=== PATIENT | female | born 1985 | race Caucasian/White ===

== ENCOUNTER 2016-08-29 15:01 | Emergency (ER) | payer MEDICAID ==
[~2016-08-29] VITALS: Ht 170.2 cm; Wt 81.6 kg
[~2016-08-29 15:01] MED LIST: BACTRIM DS 8001 TA1 PO; FLOMAX 0.4MG C0.4 MG PO; LEVOTHYROXIN0.075 M3 PO; VICODIN 5/500 T1 TAB PO; VOLTAREN75 MG PO; ZOLOFT100 MG PO
--- NOTE | 2016-08-29 15:34 | Urgent Treatment Center Report ---
History of Present Issue Date/Time Seen by Provider 08/29/16 1529 Visit Reason Pt arrived:Walked Presenting Problem:PT REPORTS L FLANK PAIN RADIATING TO CENTER OF BACK THAT PT REPORS BEGINNING AROUND 0500 TODAY. PT DENIES N/V/D OR URINARY SYMPTOMS Location if Accident: Onset of symptoms date/time:08/29/16 or onset unknown for: Have you (or family members/close friends) recently traveled outside the [place]? N If Yes, where/when: Have you had exposure to infectious disease within the past month? TB? Other? Specify: Patient state that she has been having pain in her left flank area that radiates to middle of back. Patient states that it hurts when she moves and feels like her muscle in her back on that side is really tight. States that she had a tubal done a couple of years ago. Denies any chances of . States that pain does worsen some when she moves but she does not recall anything that she has done recently to hurt her back. States that pain is worse with inspiration ALLERGIES Coded Allergies: No Known Allergies (08/29/16) Home Medications Reported Medications No Known Home Medications History Medical History General CAD? No Angina: No [place]: No Hypertension? No Hyperlipidemia? No CHF? No DVT? No PE? No COPD? No Asthma? No Anemia? No GERD? No Gastric ulcers? No GI Bleed? No Hernia? Yes Thyroid Problems? No Hypothyroidism? No CVA? No Seizures? No Diabetes? No Insulin Dependent: No Insulin Pump: No Home FSBS? No Renal Insuffiency? No UTI? No Stones? No BPH? No GB Disease: Yes Nephritic Syndrome? No Asplenia? No Hepatitis? Yes Sickle Cell Disease? No Arthritis? No Migraines? No Cataracts? No Glaucoma? No MRSA? No HIV? No TB? No Anxiety? No Depression? Yes Cancer? 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 Physical Exam Vital Signs Vital Signs Date Time Temp Pulse Resp B/P Pulse O2 O2 Flow FiO2 Ox Delivery Rate 08/29 1630 20 08/29 1524 97.9 74 18 121/82 100 08/29 1507 97.9 74 18 121/82 100 General Appearance normal appearance, WD/WN, no apparent distress, mild distress Respiratory Status Yes: trachea midline, chest symmetrical, non tender chest. No: respiratory distress. Lung Sounds bilateral: normal breath sounds, lungs clear. 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 Muscle spasm felt just below rib area on left side Medical Decision Making LABS/Meds/Orders Pt receiving controlled substance in ED? No Results/Orders Laboratory Tests 08/29/16 1530: Urine Color YELLOW, Urine Appearance CLEAR, Urine pH 5.5, Ur Specific [place] 1.030, Urine Protein TRACE H, Urine Ketones NEGATIVE, Urine Blood NEGATIVE, Urine Nitrate NEGATIVE, Urine Bilirubin NEGATIVE, Urine Urobilinogen 0.2, Ur Leukocyte Esterase NEGATIVE, Urine Glucose NEGATIVE Current Medication Orders Sig/Manny Start time Last Medication Dose Route Stop Time Status Admin Orphenadrine Citrate 0 .STK-MED ONE 08/29 1624 DC .ROUTE Ketorolac 0 .STK-MED ONE 08/29 1621 DC Tromethamine .ROUTE Ketorolac 60 MG ONCE ONE 08/29 1615 DC 08/29 Tromethamine IM 08/29 1616 1630 Orphenadrine Citrate 60 MG ONCE ONE 08/29 1615 DC 08/29 IM 08/29 1616 1630 Orders Procedure Date/time Status [facility] URINE DIPSTICK 08/29 1530 Complete CHEST(2 VIEWS-NOT PORTABLE) 08/29 1528 Active XRAY/CT/US XRAY/CT/US XR interpretation by reviewed by me Xray Results no infiltrates Progress [facility] Progress Notes Date 08/29/16 Time 1644 Comment Patient states that pain is better that shots helped with pain Departure Departure Time of Disposition 1651 Disposition DC Home or Self Care(routine) Clinical Impression Primary Impression: Spasm Condition STABLE Referrals Dottie LOZANO,Art Mott (Family) Patient Instructions DI for Muscle Spasm Additional Instructions Drink plenty of fluids Follow up with family doctor if no improvement in symptoms Return if needed Take medication as prescribed Discharge Counseling Counseled pt/family regarding diagnosis, test results, medications/RX, home care, follow up needs Prescriptions Current Visit Scripts Cyclobenzaprine Hcl (Flexeril) 10 MG PO TID #20 TAB Ibuprofen (Ibuprofen 800MG) 800 MG PO QIDP PRN pain #30 TAB at 5783
--- NOTE | 2016-08-29 15:34 | Urgent Treatment Center Report ---
History of Present Issue Date/Time Seen by Provider 08/29/16 1529 Visit Reason Pt arrived:Walked Presenting Problem:PT REPORTS L FLANK PAIN RADIATING TO CENTER OF BACK THAT PT REPORS BEGINNING AROUND 0500 TODAY. PT DENIES N/V/D OR URINARY SYMPTOMS Location if Accident: Onset of symptoms date/time:08/29/16 or onset unknown for: Have you (or family members/close friends) recently traveled outside the [place]? N If Yes, where/when: Have you had exposure to infectious disease within the past month? TB? Other? Specify: Patient state that she has been having pain in her left flank area that radiates to middle of back. Patient states that it hurts when she moves and feels like her muscle in her back on that side is really tight. States that she had a tubal done a couple of years ago. Denies any chances of . States that pain does worsen some when she moves but she does not recall anything that she has done recently to hurt her back. States that pain is worse with inspiration ALLERGIES Coded Allergies: No Known Allergies (08/29/16) Home Medications Reported Medications No Known Home Medications History Medical History General CAD? No Angina: No [place]: No Hypertension? No Hyperlipidemia? No CHF? No DVT? No PE? No COPD? No Asthma? No Anemia? No GERD? No Gastric ulcers? No GI Bleed? No Hernia? Yes Thyroid Problems? No Hypothyroidism? No CVA? No Seizures? No Diabetes? No Insulin Dependent: No Insulin Pump: No Home FSBS? No Renal Insuffiency? No UTI? No Stones? No BPH? No GB Disease: Yes Nephritic Syndrome? No Asplenia? No Hepatitis? Yes Sickle Cell Disease? No Arthritis? No Migraines? No Cataracts? No Glaucoma? No MRSA? No HIV? No TB? No Anxiety? No Depression? Yes Cancer? 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 Physical Exam Vital Signs Vital Signs Date Time Temp Pulse Resp B/P Pulse O2 O2 Flow FiO2 Ox Delivery Rate 08/29 1630 20 08/29 1524 97.9 74 18 121/82 100 08/29 1507 97.9 74 18 121/82 100 General Appearance normal appearance, WD/WN, no apparent distress, mild distress Respiratory Status Yes: trachea midline, chest symmetrical, non tender chest. No: respiratory distress. Lung Sounds bilateral: normal breath sounds, lungs clear. 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 Muscle spasm felt just below rib area on left side Medical Decision Making LABS/Meds/Orders Pt receiving controlled substance in ED? No Results/Orders Laboratory Tests 08/29/16 1530: Urine Color YELLOW, Urine Appearance CLEAR, Urine pH 5.5, Ur Specific [place] 1.030, Urine Protein TRACE H, Urine Ketones NEGATIVE, Urine Blood NEGATIVE, Urine Nitrate NEGATIVE, Urine Bilirubin NEGATIVE, Urine Urobilinogen 0.2, Ur Leukocyte Esterase NEGATIVE, Urine Glucose NEGATIVE Current Medication Orders Sig/Manny Start time Last Medication Dose Route Stop Time Status Admin Orphenadrine Citrate 0 .STK-MED ONE 08/29 1624 DC .ROUTE Ketorolac 0 .STK-MED ONE 08/29 1621 DC Tromethamine .ROUTE Ketorolac 60 MG ONCE ONE 08/29 1615 DC 08/29 Tromethamine IM 08/29 1616 1630 Orphenadrine Citrate 60 MG ONCE ONE 08/29 1615 DC 08/29 IM 08/29 1616 1630 Orders Procedure Date/time Status [facility] URINE DIPSTICK 08/29 1530 Complete CHEST(2 VIEWS-NOT PORTABLE) 08/29 1528 Active XRAY/CT/US XRAY/CT/US XR interpretation by reviewed by me Xray Results no infiltrates Progress [facility] Progress Notes Date 08/29/16 Time 1644 Comment Patient states that pain is better that shots helped with pain Departure Departure Time of Disposition 1651 Disposition DC Home or Self Care(routine) Clinical Impression Primary Impression: Spasm Condition STABLE Referrals Dottie LOZANO,Art Mott (Family) Patient Instructions DI for Muscle Spasm Additional Instructions Drink plenty of fluids Follow up with family doctor if no improvement in symptoms Return if needed Take medication as prescribed Discharge Counseling Counseled pt/family regarding diagnosis, test results, medications/RX, home care, follow up needs Prescriptions Current Visit Scripts Cyclobenzaprine Hcl (Flexeril) 10 MG PO TID #20 TAB Ibuprofen (Ibuprofen 800MG) 800 MG PO QIDP PRN pain #30 TAB at 2811
[2016-08-29 15:47] LABS: URINE BILIRUBIN - DIPSTICK NEGATIVE (NEG); URINE BLOOD NEGATIVE (NEG)
[2016-08-29] MEDS ORDERED: IBUPROFEN800 MG PO (16:54)
[2016-08-29] MEDS ORDERED: FLEXERIL10 MG PO (16:54)
[2016-08-29 16:59] VITALS: BP 121/82
--- NOTE | 2016-08-29 18:19 | RADIOLOGY REPORT PS360 ---
CHEST(2 VIEWS-NOT PORTABLE) Ordering physician: PATRICK GONZALES APRN Age: 31 years Female INDICATION: chest symptomspainful inspiration left-sided chest pain no trauma. PROCEDURE: CHEST(2 VIEWS-NOT PORTABLE) FINDINGS: No prior Lungs well expanded and clear with nothing definitely acute. No pneumothorax. No pleural effusion. Heart normal size. Normal pulmonary vascularity. Hilar and mediastinal structures appear satisfactory. Chest wall unremarkable. T-spine intact. IMPRESSION ----- No active disease. Lungs clear. No pneumothorax. Nothing definite acute at chest
--- OUTSIDE RECORDS SUMMARY | 2016-08-30 23:01 | External Medical Summary Rpt ---
Author Author , Organization [employer] Address Unknown Phone Unavailable Care Team Providers Care [place] Tier Name Role Phone [facility], Unavailable Unavailable [facility] AWOSIKA BRANDEN, AWOSIKA Unavailable Unavailable BRANDEN AWOSIKA BRANDEN, AWOSIKA Unavailable Unavailable BRANDEN BEINEKE HENNA, BEINEKE Unavailable Unavailable HENNA TIAN FRANCO, TIAN FRANCO Unavailable Unavailable [facility] Un[facility] Unavailable [facility], [facility] GEOFFREY SWANSON, Unavailable Unavailable GEOFFREY SWANSON, KAPADIA Unavailable Unavailable HONG KAPADIA HONG, KAPADIA Unavailable Unavailable [facility] Unavailable Unavailable [facility], [facility] Unavailable Unavailable [facility], [facility] GUERLINE HONG, GUERLINE Unavailable Unavailable HONG SU JASMIN, SU JASMIN Unavailable Unavailable DEANDRE BLUE DOTY, Unavailable Unavailable DEANDRE Kauffman [facility], Unavailable Unavailable [facility] RANJAN SIMI, RANJAN Unavailable Unavailable SIMI FLETCHER WOODRUFF S, Unavailable Unavailable FLETCHER WOODRUFF ANT, KAMARA Unavailable Unavailable ANT ALLY DEN, ALLY DEN Unavailable Unavailable CLARITZA ROSEN, Unavailable Unavailable CLARITZA ROSEN, Unavailable Unavailable MATHEW LINDSEY HARLAMERT HEN, Unavailable Unavailable HARLAMERT HEN [facility] Unavailable Unavailable INC, [facility] LAWTON KELIN, LAWTON Unavailable Unavailable KELIN LAWTON KELIN, LAWTON Unavailable Unavailable KELIN HILTON RAMIREZ, Unavailable Unavailable HILTON RAMIREZ [facility] Unavailable Unavailable IMAGING ASS, [facility] Unavailable Unavailable [facility]available Unavailable [facility] # Unavailable Unavailable [id number], [facility] # [id number] [id number], Unavailable Unavailable [id number] KUMLER III PAO, Unavailable Unavailable [facility] III PA[facility] Unavailable Unavailable HOLDING, [facility] Unavailable Unavailable HOLDING, [facility], Unavailable Unavailable [facility] Unavailable Unavailable [facility], [facility] Unavailable Unavailable [facility], [facility] Unavailable Unavailable CORPORATION OF AM, [facility] Unavailable [facility]available [facility], [facility] SHAYLA LAW, SHAYLA Unavailable Unavailable LAW [facility] Unavailable Unavailable SERVICES, [facility] Unavailable Unavailable ASSOCIAT, [facility] Unavailable Unavailable SURG[facility], [facility] Unavailable Unavailable MEDICAL, [facility] Unavailable Unavailable [facility] CENTER, [facility] MEESE, BRIDGETTE P, Unavailable Unavailable MEESE BRIDGETTE P [facility], Unavailable Unavailable [facility] MARTIN STEVAN, MARTIN STEVAN Unavailable Unavailable [facility], Unavailable Unavailable PLLC, [facility] DIEGO ANDREE, DIEGO ANDREE Unavailable Unavailable ANDRZEJ HERRERA, Unavailable Unavailable ANDRZEJ HERRERA JR [place], Unavailable Unavailable PICKZULEIKA TEJADA [place] PORNOY ORA, PORNOY Unavailable Unavailable ORA PORNOY ORA, PORNOY Unavailable Unavailable ORA YEISON BERTA, YEISON Unavailable Unavailable BERTA [facility], Unavailable Unavailable [facility], Unavailable Unavailable [facility] JOSE, ASPEN N, Unavailable Unavailable JOSE, ASPEN N DARA MARLEE, DARA Unavailable Unavailable MARLEE DARA, ALIN A, Unavailable Unavailable DARA, ALIN A YAHIR NEWSOME, Unavailable Unavailable YAHIR NEWSOME [id number], Unavailable Unavailable [id number] Un[facility] Unavailable Unavailable [facility], [facility] Unavailable Unavailable DEPARTMENT, [facility] SADEK MOH, SADEK MOH Unavailable Unavailable SADEK MOH, SADEK MOH Unavailable Unavailable SHOWER, YOGESH L, Unavailable Unavailable SHOWER, YOGESH L [facility] SPADY KELIN, SPADY KELIN Unavailable Unavailable SPADY KELIN, SPADY KELIN Unavailable Unavailable NANDINI AUD, NANDINI Unavailable Unavailable AUD NANDINI AUD, NANDINI Unavailable Unavailable AUD NANDINI, YOMI, Unavailable Unavailable YOMI DELATORRE RAG, Unavailable Unavailable NATALIIA RAG NATALIIA RAG, Unavailable Unavailable NATALIIA RAG [facility] Unavailable Unavailable PHYSICIANS MAY, [facility] MAY [facility] Unavailable Unavailable PHYSICIANS MAY, [facility]ANS MAY DE LA CRUZ KER, DE LA CRUZ KER Unavailable Unavailable [facility], Unavailable Unavailable [facility], Unavailable Unavailable [facility] Unavailable Unavailable LABORATORIES, [facility] MARQUIS DEVRIES, Unavailable Unavailable MARQUIS DEVRIES, LJ Unavailable Unavailable MARQUIS CARABALLO, Unavailable Unavailable MARQUIS CALHOUN KATHRYN, Unavailable Unavailable BRIAN POE Purpose Continuity of Care Document - 05-05-2007 through 2016 Problems Code Diagnosis DOS Provider Status J209 ACUTE 01-24-2016 [facility]Y UNSPECIFIED PHYS R05 COUGH 01-24-2016 [facility] Z720 TOBACCO USE 01-24-2016 [facility] I889 NONSPECIFIC 03-06-2015 [facility] LYMPHADEN[facility] INC IS UNSPECIFIED R7989 OTHER SPEC 03-06-2015 [facility] FINDINGS BLOOD CHEMISTRY 7245 UNSPECIFIED 01-30-2015 [facility] 81107 ABDOMINAL 01-14-2015 [facility] PA[facility] OTHER PHYSICIANS, SPECIFIED [facility] SITE 06574 [facility] COMP 01-14-2015 [place] [facility] RY DEVICE IMAGING ASS IMPLANT&GRA FT OTH 25686 ENDOCARDITI 05-25-2014 [facility] S VALVE REGIONAL UNSPECIFIED MEDICAL UNSPECIFIED CAUSE 99543 OTHER 05-25-2014 NATALII[facility] ENDOCARDITI RAG S VALVE UNSPECIFIED 6823 CELLULITIS 05-25-2014 [facility] AND ABSCESS REGIONAL OF UPPER MEDICAL ARM AND FOREARM 4519 PHLEBITIS&T 05-14-2014 NAT[facility] HROMBOPHLEB RAG ITIS OF UNSPECIFIED SITE 35889 ACUTE 05-13-2014 [facility] SUP VEINS UPPER EXT 99160 UNSPECIFIED 02-21-2014 [facility] DENTAL N EMERGENCY CARIES PHYS 5259 UNSPECIFIED 02-21-2014 [facility] DISORDER N EMERGENCY TEETH&SUPPO PHYS RTING STRUCTURES 95170 UNSPECIFIED 01-09-2014 [facility] VIRAL REGIONAL HEPATITIS C MEDICAL W/O HEPATIC COMA 45366 DYSPLASIA 01-09-2014 [facility] OF CERVIX H UNSPECIFIED ANESTHESIA PSC 49232 MODERATE 01-09-2014 [facility] DYSPLASIA REGIONAL OF CERVIX MEDICAL 7969 OTHER 01-09-2014 [facility] NONSPECIFIC REGIONAL ABNORMAL MEDICAL FINDING 33069 PAP SMER 01-05-2014 [facility] CERV W/HI [facility] SQUAMOUS INTRAEPITH LES V7283 OTHER 01-05-2014 [facility] SPECIFIED PRIMARY PRE-OPERATI CARE CENTER VE EXAMINATION 84362 UNSPECIFIED 12-18-2013 [facility] VIRAL INFECTION IN CCE & UNS SITE 6202 OTHER AND 12-13-2013 [facility] UNSPECIFIED REGIONAL OVARIAN MEDICAL CYST 7873 FLATULENCE 10-24-2013 [facility] ERUCTATION AND GAS PAIN 81816 ABDOMINAL 10-24-2013 PORNOY ORA PAIN, PERIUMBILIC 7935 NONSPECIFIC 10-24-2013 [facility] ABN FINDING RAD & OTH EXAM ORGAN 79142 INCISIONAL 10-19-2013 SPAD[facility] KELIN HERNIA WITH OBSTRUCTION V7231 ROUTINE 09-26-2013 [facility] GYNECOLOGIC [facility] OF AL SANDRA H EXAMINATION V7388 SPECIAL SCR 09-26-2013 LABOR[facility]ORY [facility] OF EXAMINATION SANDRA OT SPEC CHLAMYDIAL DZ V745 SCREENING 09-26-2013 LABORATORY EXAMINATION [facility] OF FOR SANDRA H VENEREAL DISEASE V762 SCREENING 09-26-2013 LABORATORY FOR [facility] OF MALIGNANT SANDRA NEOPLASM OF THE CERVIX 5531 UMB HERNIA 09-20-2013 [facility] WITHOUT MENTION OBSTRUCTION /GANGRENE 28754 UNSPEC 09-20-2013 [facility] W/O PHYSICIANS MENTION MAY OBST/GANGRE N 5718 OTHER 09-20-2013 [facility] CHRONIC NONALCOHOLI C LIVER DISEASE 79207 OTHER 09-20-2013 [facility] SPECIFIED DISORDERS OF URETHRA V7241 09-14-2013 [facility]AM[facility] OR TEST DEPARTME NEGATIVE RESULT 44593 ABDOMINAL 09-13-2013 [facility] PAIN, UNSPECIFIED SITE 45339 ABDOMINAL 09-13-2013 PORNOY ORA PAIN, LEFT UPPER QUADRANT V4579 OTHER 09-13-2013 [facility] ACQUIRED ABSENCE OF ORGAN 40748 ACUT PEPTC 09-11-2013 [facility] ULCR UNS REGIONAL SITE MEDICAL W/HEMORR&PE RF W/O OBST 89720 UNSPECIFIED 09-11-2013 [facility] N 27816 PAIN IN 08-28-2013 [facility] JOINT, GENERAL LOWER LEG SURGERY 8362 OTHER TEAR 08-28-2013 [facility] CARTILAGE GENERAL OR MENISCUS SURGERY KNEE CURRENT 9597 INJURY 08-28-2013 [facility] OTHER&UNSPE GENERAL CIFIED KNEE SURGERY LEG ANKLE&FOOT 19501 EFFUSION OF 08-24-2013 [facility] [place] LOWER LEG JOINT 2449 UNSPECIFIED 07-07-2013 NANDINI AUD HYPOTHYROID ISM 91786 UNSPECIFIED 07-07-2013 [facility] Y OF KNEE AUGUST 9598 INJURY 07-07-2013 [place] JOH OTHER AND UNSPECIFIED UNSPECIFIED SITE V7791 SCREENING 07-07-2013 NANDINI AUD FOR LIPOID DISORDERS 6961 OTHER 03-22-2013 NANDINI AUD PSORIASIS AND SIMILAR DISORDERS V0481 NEED 03-22-2013 NANDINI AUD PROPHYLACTI C VACCINATION &INOCULATIO N FLU 8471 THORACIC 07-26-2012 I [facility], [facility] INC. 4619 ACUTE 07-25-2012 [facility] UNSPECIFIED SERVICES 04947 DEGEN 07-19-2012 [facility]/ RADIOLOGY ORACOLUMBAR ASSOCIAT INTERVERTEB RAL DISC 40433 CHRONIC 07-06-2012 [facility] WITHOUT MENTION HEPATIC COMA V700 ROUTINE 07-06-2012 [facility] MEDICAL EXAM@HEALTH CARE FACL 0701 VIRAL 05-10-2012 [facility] WITHOUT PHYSICIANS MENTION OF AUGUST HEPATIC COMA 97569 UNSPECIFIED 05-06-2012 AWOSIKA BRANDEN ASTIGMATISM 7840 HEADACHE 05-06-2012 AWOSIKA BRANDEN 5990 URINARY 11-28-2011 [facility] INFECTION SERVICES SITE NOT SPECIFIED 27160 UNSPECIFIED 11-28-2011 [facility]ENTION [facility] OF URINE SERVICES 7099 UNSPECIFIED 11-13-2011 [facility] DISORDER AMERIC OF HOLDING SKIN&SUBCUT ANEOUS TISSUE 2662 OTHER 07-17-2011 KE[facility] Snow-COMPLEX CO HEALTH DEFICIENCIE DEPARTME S 5959 UNSPECIFIED 02-07-2011 [facility] CYSTITIS [facility] 2384 NEOPLASM 12-19-2010 NANDINI AUD UNCERTAIN BEHAVIOR POLYCYTHEMI A VERA 2890 POLYCYTHEMI 12-19-2010 [facility] A, AMERIC SECONDARY HOLDING 8509 UNSPECIFIED 10-24-2010 NANDINI AUD CONCUSSION 72076 UNSPECIFIED 10-11-2010 [facility] ACUTE [facility] CONJUNCTIVI SERVICES TIS 61905 OTHER 10-11-2010 [facility] DISEASES OF EMERGENCY NASAL SERVICES CAVITY AND SINUSES 9190 ABRASION/FR 10-11-2010 [facility] ICION BURN EMERGENCY OTH MX&UNS SERVICES SITE W/O INF 4660 ACUTE 08-06-2010 NANDINI AUD BRONCHITIS 6262 EXCESSIVE 06-06-2010 NANDINI AUD OR FREQUENT MENSTRUATIO N 38149 CHOLECYSTIT 05-08-2010 [facility] IS, H UNSPECIFIED ANESTHESIA PSC 64671 CHRONIC 05-08-2010 [facility] CHOLECYSTIT REGIONAL IS MEDICAL 5758 OTHER 05-08-2010 [facility] SPECIFIED REGIONAL DISORDER OF MEDICAL GALLBLADDER 6146 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 [facility] PERITONEAL REGIONAL ADHESIONS, MEDICAL FEMALE 7856 ENLARGEMENT 05-08-2010 [facility] [place] [facility] NODES 7862 COUGH 05-06-2010 [facility] 45924 ABDOMINAL 04-02-2010 [facility] PAIN RIGHT REGIONAL UPPER MEDICAL QUADRANT 39908 ACUTE 03-22-2010 [facility] WITHOUT SERVICES MENTION OF HEMORRHAGE 92115 UNS 03-22-2010 [facility] GASTRITIS&G REGIONAL ASTRODUODIT MEDICAL IS W/O MENTION HEMORR 04873 VOMITING 03-22-2010 [facility] ALONE REGIONAL MEDICAL 1105 DERMATOPHYT 12-24-2009 NANDINI AUD OSIS OF THE BODY 75312 OBESITY, 12-24-2009 NANDINI AUD UNSPECIFIED 26369 OTHER 12-24-2009 NANDINI AUD MALAISE AND FATIGUE 8472 LUMBAR 12-24-2009 NANDINI AUD SPRAIN AND STRAIN 6228 OTHER 12-17-2009 [facility] SPECIFIED PRIMARY NONINFLAMMA CARE CENTER TORY DISORDER CERVIX 6259 UNSPEC 12-17-2009 [facility] SYMPTOM PRIMARY ASSOC CARE CENTER W/FEMALE GENITAL ORGANS 6179 ENDOMETRIOS 11-25-2009 [facility] IS, SITE [place] UNSPECIFIED 6264 IRREGULAR 11-25-2009 [facility] MENSTRUAL [place] CYCLE 7295 PAIN IN 11-25-2009 [facility] SOFT [place] TISSUES OF LIMB 34310 ABDOMINAL 11-25-2009 [facility] LOWER QUADRANT 25825 OTHER 11-25-2009 [facility] 8419 SPRAIN&STRA 09-15-2009 [facility] IN EMERGENCY UNSPECIFIED SERVICES SITE ASSOCIATES [place] [address] CONTUSION 09-15-2009 [place] [facility] SERVICES ASSOCIATES 9593 INJURY 09-15-2009 [place] OTHER&UNSPE MEDICAL CIFIED IMAGING [facility] FOREARM&WRI ST E8809 ACCIDENTAL 09-15-2009 [facility] FALL ON OR EMERGENCY FROM OTHER SERVICES STAIRS OR ASSOCIATES STEPS 54995 THYROTOX 08-28-2009 [facility] W/O [place] INC GOITER/OTH CAUSE W/O CRISIS 1104 DERMATOPHYT 07-27-2009 [facility], OSIS OF YAHIR Lopez FOOT 87056 MORBID 07-27-2009 [facility], OBESITY [place] 7831 ABNORMAL 07-24-2009 [facility], WEIGHT GAIN YAHIR Lopez 3804 IMPACTED 07-17-2009 [facility] CERUMEN [place] 6260 ABSENCE OF 03-21-2009 [facility] 22572 MILD 02-19-2009 [facility] DYSPLASIA PRIMARY OF CERVIX CARE CENTERINC 6253 DYSMENORRHE 02-19-2009 [facility] A PRIMARY CARE CENTERINC V2502 GENERAL 02-19-2009 [facility] CNSL PRIMARY INITIATION CARE OT CENTERINC CONTRACEPT MEASURES 7881 DYSURIA 02-05-2009 [facility]ARE [facility]ENTER[facility] 53450 PAP SMER 12-25-2008 [facility] CERV [place] INC W/ATYPICAL SQUAMOUS CELLS UNDET 75049 ACUTE 11-05-2008 NANDINI, DYSTONIA YOMI DUE TO DRUGS 7231 CERVICALGIA 11-03-2008 [facility] AMB SERVICE 57923 INJURY OF 11-03-2008 [facility] FACE AND AMB SERVICE NECK OTHER AND UNSPECIFIED 6268 OTH D/O 09-25-2008 [facility] MENSTRUATIO PRIMARY N&OTH ABN CARE BLEED FE CENTERINC GNT TRACT 2113 BENIGN 02-21-2008 [facility] NEOPLASM OF TRACE COLON GASTROENTER OLOGY 5693 HEMORRHAGE 02-21-2008 [facility] OF RECTUM TRACE AND ANUS GASTROENTER OLOGY 5699 UNSPECIFIED 02-21-2008 [facility] DISORDER [place] INC OF INTESTINE 5781 BLOOD IN 01-25-2008 [facility] STOOL PRIMARY CARE CENTERINC 94726 C/S DELIV 01-25-2008 [facility] W/O INDICAT PRIMARY DELIV W/WO CARE ANTPRTM CENTERINC COND V242 ROUTINE 01-25-2008 [facility] PRIMARY FOLLOW-UP CARE CENTERINC V252 STERILIZATI 01-25-2008 [facility] ON PRIMARY CARE CENTERINC 69707 BREECH 12-13-2007 [facility] XTRAC W/O PRIMARY INDICAT CARE DELIV W/WO CENTERINC ANTPRTM COND V270 OUTCOME OF 12-13-2007 [facility] DELIVERY PRIMARY SINGLE CARE LIVEBORN CENTERINC 35862 BREECH 12-11-2007 [facility] PRESENTATIO H N W/O ANESTHESIA MENTION PSC VERSION DELIV 71561 OTH SPEC 12-11-2007 [facility] &PLACN REGIONAL TL PROBS MEDICAL MGMT [facility] DELIV 45072 PREVIOUS 12-07-2007 [facility] C-SECT REGIONAL DELIVERY MEDICAL ANTPRTM CENTER COND/COMP 7242 LUMBAGO 12-07-2007 [facility] PRIMARY CARE [facility]ENTERINC V221 SUPERVISION 12-07-2007 [facility] OF OTHER PRIMARY NORMAL CARE CENTERINC V2389 SUPERVISION 12-07-2007 [facility] OF OTHER PRIMARY HIGH-RISK CARE CENTERINC V7242 11-14-2007 [facility] EXAMINATION PRIMARY OR TEST CARE POSITIVE CENTERINC RESULT 84156 UNS 07-26-2007 [facility] ABNORM MGMT PRIMARY MOTH CARE ANTPR CENTERINC COND/COMP 28398 OTH CURRENT 07-11-2007 [facility] MATERNAL HEALTH CCE-COMPL CENTRAL PG BANK ACCT CB/PP-UNS EOC V653 DIETARY 07-11-2007 [facility] SURVEILLANC HEALTH E AND CENTRAL COUNSELING BANK ACCT V288 OTHER 05-16-2007 [facility] SPECIFIED PRIMARY CARE SCREENING CENTERINC R10.9 UNSPECIFIED ABDOMINAL PAIN Medications Na ND Rx Da Fi Fi Am Da Di Ph RX Ph St me C No te ll ll ou ys ag ar # ys at rm s nt no ma ic us Or Da si cy ia de te s n re d BU 00 02 03 3. 3 00 GE Ac MI 05 -1 -2 00 00 OR ti EN 40 7- 4- 0 04 GE ve OR 18 20 20 01 TO PH 91 17 17 67 WN IN 3 59 -N AP AL OT OX HE ON CA RY 8- 2 MG SL BU 00 02 03 4. 4 00 GE Ac MI 05 -1 -1 00 00 OR ti EN 40 3- 7- 0 04 GE ve OR 18 20 20 01 TO PH 91 17 17 66 WN IN 3 30 -N AP AL OT OX HE ON CA RY 8- 2 MG SL BU 00 02 03 5. 5 00 GE Ac MI 05 -0 -1 00 00 OR ti EN 40 8- 0- 0 04 GE ve OR 18 20 20 01 TO PH 91 17 17 64 WN IN 3 75 -N AP AL OT OX HE ON CA RY 8- 2 MG SL BU 00 01 03 4. 4 00 GE Ac MI 05 -3 -0 00 00 OR ti EN 40 0- 3- 0 04 GE ve OR 18 20 20 01 TO PH 91 17 17 62 WN IN 3 01 -N AP AL OT OX HE ON CA RY 8- 2 MG SL BU 00 01 02 5. 5 00 GE Ac MI 05 -2 -2 00 00 OR ti EN 40 0- 4- 0 04 GE ve OR 18 20 20 01 TO PH 91 17 17 59 WN IN 3 32 -N AP AL OT OX HE ON CA RY 8- 2 MG SL LE 00 01 02 30 30 00 WA Ac VO 78 -2 -2 .0 00 L- ti TH 15 0- 4- 00 07 MA ve YR 18 20 20 46 RT OX 09 17 17 60 IN 2 43 PH E AR 25 MA CY MC G #5 TA 91 BL ET 00 08 10 2 30 15 KR 62 SP Ac 14 -1 -2 .0 OG 12 EN ti 31 9- 2- 00 ER 27 CE ve 34 20 20 4 R 70 11 11 PH AU [address] VINAY VILLARREAL CY # 14 42 0 LE 00 05 10 1 90 90 KR 61 SP Ac VO 52 -2 -2 .0 OG 99 EN ti TH 71 0- 2- 00 ER 40 CE ve YR 34 20 20 9 R OX 31 11 11 PH AU IN [address] Jose Roberto MCLEAN EY 75 CY # MC G 14 TA 42 BL 0 ET POWERS 53 10 10 0 20 10 KR 62 POWERS Ac LF 74 -1 -1 .0 OG 20 LL ti AM 60 1- 1- 00 ER 81 IV ve ET 27 20 20 0 AN HO 20 11 11 PH XA 1 AR CH ZO MA RI LE CY ST -T # IN MP A 14 M DS 42 0 TA BL ET PH 65 10 10 0 10 3 KR 62 AMADA Ac EN 16 -0 -0 .0 OG 20 HN ti AZ 20 8- 9- 00 ER 33 SO ve OP 51 20 20 3 N YR 71 11 11 PH DO ID 0 AR NA IN MA LD E CY J 10 # 0 MG 14 42 TA 0 B AM 00 10 10 0 10 5 KR 62 AMADA Ac OX 78 -0 -0 .0 OG 20 HN ti -C 11 8- 9- 00 ER 33 SO ve LA 85 20 20 2 N V 22 11 11 PH DO 87 0 AR NA 5- MA LD 12 CY J 5 # MG 14 TA 42 BL 0 ET NA 53 08 08 2 30 15 KR 62 SP Ac MI 74 -1 -1 .0 OG 12 EN ti OX 60 9- 9- 00 ER 27 CE ve EN 18 20 20 4 R 90 11 11 PH AU [address] 5 MA EY MG CY # TA BL 14 ET 42 0 CI 68 08 08 0 30 30 KR 62 PO Ac TA 64 -1 -1 .0 OG 11 E ti LO 50 7- 7- [address] ve MI 28 20 20 6 AC AM 25 11 11 PH Y 4 AR L HB MA R CY 40 # MG 14 42 TA 0 BL ET 49 06 06 0 40 10 KR 62 RO Ac 88 -1 -1 0. OG 02 HE ti 40 1- 2- 00 ER 52 ve 60 20 20 0 3 PA 04 11 11 PH IG 0 AR E MA E CY # 14 42 0 ON 55 06 06 0 12 30 KR 62 RO Ac DA 11 -1 -1 .0 OG 02 HE ti NS 10 1- 2- 00 ER 52 ve ET 15 20 20 2 PA RO 33 11 11 PH IG N 0 AR E HC MA E L CY 4 # MG 14 TA 42 BL 0 ET CE 42 06 06 0 20 5 KR 62 RO Ac PH 04 -1 -1 .0 OG 02 HE ti AL 30 1- 2- 00 ER 52 ve EX 14 20 20 1 PA IN 10 11 11 PH IG 1 AR E 50 MA E 0 CY MG # CA 14 PS 42 UL 0 E CI 68 05 05 2 30 30 KR 62 SP Ac TA 64 -3 -3 .0 OG 00 EN ti LO 50 1- 1- 00 ER 71 CE ve MI 28 20 20 2 R AM 25 11 11 PH AU [address] HB MA EY R CY 40 # MG 14 42 TA 0 BL ET ME 00 05 05 0 30 10 KR 61 SP Ac TH 60 -2 -2 .0 OG 99 EN ti OC 34 3- 3- 00 ER 68 CE ve AR 48 20 20 9 R BA 52 11 11 PH AU MO [address] L MA EY 50 CY 0 # MG 14 TA 42 BL 0 ET LE 00 05 05 1 90 90 KR 61 SP Ac VO 52 -2 -2 .0 OG 99 EN ti TH 71 0- 0- 00 ER 40 CE ve YR 34 20 20 9 R OX 30 11 11 PH AU IN [address] E MA EY 75 CY # MC G 14 TA 42 BL 0 ET CY 59 05 05 2 30 10 KR 61 SP Ac CL 74 -2 -2 .0 OG 99 EN ti OB 60 0- 0- 00 ER 40 CE ve EN 21 20 20 8 R ZA 10 11 11 PH AU MI [address] IN MA EY E CY 5 # MG 14 TA 42 BL 0 ET CI 68 05 05 2 15 30 KR 61 SP Ac TA 64 -2 -2 .0 OG 99 EN ti LO 50 0- 0- 00 ER 40 CE ve MI 28 20 20 7 R AM 25 11 11 PH AU [address] HB MA EY R CY 40 # MG 14 42 TA 0 BL ET AZ 00 04 04 0 6. 5 KR 61 SP Ac IT 09 -0 -0 00 OG 92 EN ti HR 37 6- 6- 0 ER 45 CE ve OM 14 20 20 5 R YC 61 11 11 PH AU IN [address] MCLEAN EY 25 CY 0 # MG 14 TA 42 BL 0 ET CI 68 03 03 2 15 30 KR 61 SP Ac TA 64 -0 -0 .0 OG 87 EN ti LO 50 9- 9- 00 ER 67 CE ve MI 28 20 20 9 R AM 25 11 11 PH AU [address] HB MA EY R CY 40 # MG 14 42 TA 0 BL ET CI 55 02 02 0 10 5 KR 61 PO Ac MI 11 -2 -2 .0 OG 85 RN ti OF 10 5- 5- 00 ER 81 OY ve LO 12 20 20 7 XA 70 11 11 PH GE CI 1 AR OF N MA FR HC CY EY L # A 50 0 14 MG 42 0 TA B LE 00 02 02 1 90 90 KR 61 SP Ac VO 52 -2 -2 .0 OG 85 EN ti TH 71 3- 4- 00 ER 33 CE ve YR 34 20 20 0 R OX 30 11 11 PH AU IN [address] Jose Roberto MCLEAN EY 75 CY # MC G 14 TA 42 BL 0 ET PH 65 02 02 0 6. 2 KR 61 POWERS Ac EN 16 -2 -2 00 OG 85 LL ti AZ 20 4- 4- 0 ER 56 IV ve OP 52 20 20 1 AN YR 01 11 11 PH ID 0 AR CH IN MA RI E CY ST 20 # IN 0 A MG 14 M 42 TA 0 B POWERS 53 02 02 0 14 7 KR 61 POWERS Ac LF 74 -2 -2 .0 OG 85 LL ti AM 60 4- 4- 00 ER 56 IV ve ET 27 20 20 2 AN HO 20 11 11 PH XA 1 AR CH ZO MA RI LE CY ST -T # IN MP A 14 M DS 42 0 TA BL ET NE 00 01 02 1 30 30 KR 61 MA Ac XI 18 -1 -2 .0 OG 79 NS ti UM 65 8- 3- 00 ER 43 HI ve 04 [address] 03 11 11 PH LA 1 AR WR 40 MA EN CY CE MG # L CA 14 PS 42 UL 0 E LE 00 01 01 0 30 30 KR 61 SP Ac VO 52 -2 -2 .0 OG 80 EN ti TH 71 8- 8- 00 ER 97 CE ve YR 34 20 20 4 R OX 30 11 11 PH AU IN [address] E MA EY 75 CY # MC G 14 TA 42 BL 0 ET NE 00 01 01 1 30 30 KR 61 MA Ac XI 18 -1 -1 .0 OG 79 NS ti UM 65 8- 8- 00 ER 43 HI ve 04 [address] 03 11 11 PH LA 1 AR WR 40 MA EN CY CE MG # L CA 14 PS 42 UL 0 E 00 01 01 0 24 2 KR 44 MA Ac 40 -0 -0 .0 OG 78 NS ti 60 6- 6- 00 ER 63 HI ve 35 20 20 0 P 70 11 11 PH LA 1 AR WR MA EN CY CE # L 14 42 0 NE 00 12 12 0 30 30 KR 61 MA Ac XI 18 -1 -1 .0 OG 74 NS ti UM 65 7- 7- 00 ER 95 HI ve 04 [address] 03 10 10 PH LA 1 AR WR 40 MA EN CY CE MG # L CA 14 PS 42 UL 0 E MI 68 11 11 0 8. [address] Ac OM 38 -2 -2 00 OG 70 OU ti ET 20 0- 0- 0 ER 75 T ve FUNEZ 04 20 20 9 KE ZI 10 10 10 PH RR NE 1 AR IC MA K 25 CY L # MG 14 TA 42 BL 0 ET 64 11 11 0 [address] Ac 67 -2 -2 .0 OG 70 OU ti 90 0- 0- 00 ER 75 T ve 90 20 20 8 KE 60 10 10 PH RR 1 AR IC MA K CY L # 14 42 0 SP 00 08 09 11 28 28 KR 61 MI Ac RI 55 -1 -1 .0 OG 55 AD ti NT 59 7- 2- 00 ER 59 FUNEZ ve EC 01 20 20 7 N 65 10 10 PH SO 28 8 AR MA MA DA CY Y # TA BL 14 ET 42 0 DO 53 08 08 0 14 7 KR 61 MI Ac XY 48 -1 -1 .0 OG 55 AD ti CY 90 7- 7- 00 ER 59 FUNEZ ve CL 12 20 20 8 N IN 00 10 10 PH SO E 2 AR MA HY MA CL CY AT # E 10 14 0 42 MG 0 TA B SP 00 08 08 11 28 28 KR 61 MI Ac RI 55 -1 -1 .0 OG 55 AD ti NT 59 7- 7- 00 ER 59 FUNEZ ve EC 01 20 20 7 N 65 10 10 PH SO 28 8 AR MA MA DA CY Y # TA BL 14 ET 42 0 LE 00 05 08 3 30 30 KR 61 No Ac VO 52 -1 -0 .0 OG 42 t ti TH 71 2- 5- 00 ER 33 Av ve YR 34 20 20 9 ai OX 20 10 10 PH la IN 1 AR bl E MA e 50 CY # MC G 14 TA 42 BL 0 ET NA 00 07 07 0 20 10 KR 61 No Ac MI 09 -2 -2 .0 OG 52 t ti OX 30 6- 7- 00 ER 64 Av ve EN 14 20 20 6 ai 90 10 10 PH la 50 1 AR bl 0 MA e MG CY # TA BL 14 ET 42 0 LE 00 05 07 3 30 30 KR 61 No Ac VO 52 -1 -0 .0 OG 42 t ti TH 71 2- 6- 00 ER 33 Av ve YR 34 20 20 9 ai OX 21 10 10 PH la IN 0 AR bl E MA e 50 CY # MC G 14 TA 42 BL 0 ET LE 00 05 06 3 30 30 KR 61 No Ac VO 52 -1 -0 .0 OG 42 t ti TH 71 2- 2- 00 ER 33 Av ve YR 34 20 20 9 ai OX 20 10 10 PH la IN 1 AR bl E MA e 50 CY # MC G 14 TA 42 BL 0 ET 00 05 05 0 8. 2 KR 44 GA Ac 40 -1 -2 00 OG 75 IN ti 60 6- 6- 0 ER 05 EY ve 35 20 20 0 70 10 10 PH SC 1 AR CH MA AE CY L # S 14 42 0 LE 00 03 04 1 30 30 KR 61 No Ac VO 52 -2 -2 .0 OG 35 t ti TH 71 7- 9- 00 ER 44 Av ve YR 34 20 20 5 ai OX 20 10 10 PH la IN 1 AR bl E MA e 50 CY # MC G 14 TA 42 BL 0 ET PE 00 04 04 0 28 7 KR 61 BU Ac NI 78 -1 -1 .0 OG 37 RN ti CI 11 2 2 00 ER 57 S ve LL 65 20 20 5 AMADA IN 51 10 10 PH HN 0 AR T VK MA CY 50 # 0 MG 14 42 TA 0 BL ET 00 04 04 0 16 4 KR 44 BU Ac 40 -1 -1 .0 OG 74 RN ti 60 2 2 00 ER 35 S ve 35 20 20 3 AMADA 70 10 10 PH HN 1 AR T MA CY # 14 42 0 LE 00 03 03 1 30 30 KR 61 No Ac VO 52 -2 -2 .0 OG 35 t ti TH 71 00 ER 44 Av ve YR 34 20 20 5 ai OX 20 10 10 PH la IN 1 AR bl E MA e 50 CY # MC G 14 TA 42 BL 0 ET NY 00 03 03 3 30 15 KR [address] 16 -1 -1 .0 OG 33 t ti AT 80 ER 90 Av ve IN 05 20 20 6 ai 43 10 10 PH la 10 0 AR bl 0, MA e 00 CY 0 # UN IT 14 /G 42 M 0 CR EA M FL 68 03 03 1 10 10 KR 61 No Ac UC 46 -1 -1 .0 OG 33 t ti ON 20 ER 90 Av ve AZ 10 20 20 5 ai OL 34 10 10 PH la E 0 AR bl 15 MA e 0 CY MG # TA 14 BL 42 ET 0 IB 53 01 01 00 24 8 KR 61 FO Ac UP 74 -1 -[address]0 [address] ti RO 60 ER 81 ER ve FE 46 20 20 6 N 60 10 10 PH JA 80 1 AR ME 0 MA S MG CY M TA #4 BL 20 ET OX 00 05 03 00 15 2 KR 22 FO Ac YC 40 -1 -[address] ti OD 60 8 ER 41 ER ve ON 51 20 20 7 E- 20 10 10 PH JA AC 1 AR ME ET MA S AM CY M IN OP #4 HE 20 N 5- 32 5 BA 00 05 03 00 20 6 KR 61 FO Ac CL 83 -1 -[address] ti OF 21 ER 81 ER ve EN 02 20 20 5 40 10 10 PH JA 10 0 AR ME MA S MG CY M TA #4 BL 20 ET NU 00 10 11 00 1. 28 KR 61 YO Ac VA 05 -2 -1 00 OG 09 UN ti RI 20 0- 9- 0 ER 27 G ve NG 27 20 20 4 KA 30 09 09 PH TH VA 3 AR ALANNA OLIVARES MA N NA CY L RI #4 NG 20 NU 00 10 11 00 3. 90 KR 61 YO Ac VA 05 -2 -0 00 OG 09 UN ti RI 20 0- 5- 0 ER 27 G ve NG 27 20 20 4 KA 30 09 09 PH TH VA 3 AR ALANNA OLIVARES MA N NA CY L RI #4 NG 20 PO 00 08 09 00 52 30 KR 60 ME Ac LY 57 -2 -1 7. OG 99 ES ti ET 40 5- 0- 00 ER 92 E ve HY 41 [address] LE 20 09 09 PH EP NE 5 AR HE MA N GL CY P YC OL #4 20 33 50 PO WD IB 53 08 09 00 30 10 KR 60 ME Ac UP 74 -2 -1 .0 OG 99 ES ti RO 60 5- 0- 00 ER 92 E ve FE [address] N 60 09 09 PH EP 80 1 AR HE 0 MA N MG CY P TA #4 BL 20 ET SP 00 08 09 00 28 28 KR 60 ME Ac RI 55 -2 -1 .0 OG 99 ES ti NT 59 5- 0- 00 ER 92 E ve EC [address] 65 09 09 PH EP 28 8 AR HE MA N DA CY P Y TA #4 BL 20 ET POWERS 53 07 07 00 20 10 KR 60 KE Ac LF 74 -1 -3 .0 OG 93 ET ti AM 60 3- 0- 00 ER 76 ON ve ET 27 20 20 6 HO 10 09 09 PH CA XA 1 AR SE ZO MA Y LE CY R -T MP #4 20 SS TA BL ET BE 00 07 07 00 6. 3 RI 66 CH Ac NZ 83 -0 -1 00 TE 78 RI ti TR 21 4- 6- [address] ve OP 08 20 20 AI MA IN 10 09 09 D S E 0 PH WI ME AR LL S M IA 1 #3 M MG 92 A 0 TA BL ET IB 53 05 06 00 30 10 KR 60 ME Ac UP 74 -2 -0 .0 OG 86 ES ti RO 60 6- 4- 00 ER 86 E ve FE [address] N 60 09 09 PH EP 80 1 AR HE 0 MA N MG CY P TA #4 BL 20 ET SP 00 05 06 00 28 28 KR 60 ME Ac RI 55 -2 -0 .0 OG 86 ES ti NT 59 6- 4- 00 ER 86 E ve EC [address] 65 09 09 PH EP 28 8 AR HE MA N DA CY P Y TA #4 BL 20 ET PE 00 02 02 00 28 7 KR 60 PO Ac NI 78 -0 -1 .0 OG 68 PE ti CI 11 2- 2- 00 ER 04 -B ve LL 65 20 20 1 UR IN 51 09 09 PH NS 0 AR VK MA SA CY LL 50 Y 0 #4 MG 20 TA BL ET OX 00 02 02 00 16 4 KR 22 PO Ac YC 40 -0 -1 .0 OG 17 PE ti OD 60 2- 2- 00 ER 00 -B ve ON 51 20 20 3 UR E- 20 09 09 PH NS AC 1 AR ET MA SA AM CY LL IN Y OP #4 HE 20 N 5- 32 5 OS 65 10 10 00 32 1 KR 60 No Ac MO 64 -0 -2 .0 OG 49 t ti MI 90 8- 3- 00 ER 96 Av ve EP 70 20 20 5 ai 14 08 08 PH la TA 1 AR bl BL MA e ET CY #4 20 OX 00 08 09 00 16 4 KR 22 No Ac YC 40 -2 -1 .0 OG 15 t ti OD 60 6- 1- 00 ER 86 Av ve ON 51 20 20 0 ai E- 20 08 08 PH la AC 1 AR bl ET MA e AM CY IN OP #4 HE 20 N 5- 32 5 PE 00 08 09 00 28 7 KR 60 No Ac NI 78 -2 -1 .0 OG 43 t ti CI 11 6- 1- 00 ER 11 Av ve LL 65 20 20 2 ai IN 51 08 08 PH la 0 AR bl VK MA e CY 50 0 #4 MG 20 TA BL ET CI 55 08 09 00 14 7 KR 60 No Ac MI 11 -2 -1 .0 OG 43 t ti OF 10 5- 1- 00 ER 01 Av ve LO 12 20 20 6 ai XA 70 08 08 PH la CI 1 AR bl N MA e HC CY L 50 #4 0 20 MG TA B 53 08 08 00 30 10 KR 60 No Ac 74 -1 -2 .0 OG 41 t ti 60 2- 8- 00 ER 07 Av ve 13 20 20 6 ai 70 08 08 PH la 5 AR bl MA e CY #4 20 OX 00 08 08 00 24 2 KR 22 No Ac YC 40 -1 -2 .0 OG 15 t ti OD 60 2- 8- 00 ER 77 Av ve ON 51 20 20 0 ai E- 20 08 08 PH la AC 1 AR bl ET MA e AM CY IN OP #4 HE 20 N 5- 32 5 00 04 06 01 10 10 KR 60 No Ac 09 -2 -0 .0 OG 26 t ti 10 4- 5- 00 ER 14 Av ve 69 20 20 1 ai 01 08 08 PH la 0 AR bl MA e CY #4 20 00 04 05 00 10 10 KR 60 No Ac 09 -2 -0 .0 OG 26 t ti 10 4- 8- 00 ER 14 Av ve 69 20 20 1 ai 01 08 08 PH la 0 AR bl MA e CY #4 20 PE 00 04 04 00 28 7 KR 60 No Ac NI 78 -0 -2 .0 OG 23 t ti CI 11 7- 4- 00 ER 50 Av ve LL 65 20 20 9 ai IN 51 08 08 PH la 0 AR bl VK MA e CY 50 0 #4 MG 20 TA BL ET AC 00 04 04 00 8. 2 KR 44 No Ac ET 09 -0 -2 00 OG 60 t ti AM 30 7- 4- 0 ER 35 Av ve IN 15 20 20 4 ai OP 01 08 08 PH la HE 0 AR bl N- MA e CO CY D #3 #4 20 TA BL ET 64 01 03 00 30 30 KR 60 No Ac 01 -0 -2 .0 OG 09 t ti 10 3- 4- 00 ER 93 Av ve 20 20 20 0 ai 73 08 08 PH la 4 AR bl MA e CY #4 20 59 01 03 00 30 30 KR 60 No Ac 63 -0 -2 .0 OG 09 t ti 00 3- 4- 00 ER 92 Av ve 41 20 20 9 ai 19 08 08 PH la 0 AR bl MA e CY #4 20 Procedures Procedure DOS Code Location Performer Comment RADIOLOGI 34808 [facility] C EXAM 6 HONG CHEST 2 RADIOLOGY VIEWS ASSOCI[place]ONTAL&[place] [address] POLLY MATIAS THYROXINE 5 [facility] TOTAL INC INC BLOOD 26647 [facility], PICKLESIM SMEAR 5 LLC ER JR BIBIANA PERIPHERA L INTERP PHYS W/WRIT REPORT 25 01339 POLLY [facility] HYDROXY 5 [facility] INCLUDES INC INC FRACTIONS IF PERFORMED BLOOD 36155 POLLY MATIAS COUNT 5 [facility] COMPLETE INC INC AUTO&[place] [address] POLLY MAT[facility]AS THYROID 5 [facility] STIMULATI INC INC NG HORMONE TSH COMPREHEN 78609 POLLY MATIAS SIVE 5 [facility] [place] [address] [facility] ABDOMEN & 5 MEDICAL HENNA PELVIS IMAGING W/O ASS CONTRAST MATERIAL ANES 29665 [facility] GUERLINE NON-INVAS 5 LTH HONG BRUNILDA ANESTHESI IMAGING/R A PSC ADIATION THERAPY ECHO 58896 MEADOWVIE MEADOWVIE TRANSESOP 5 W W HAG R-T REGIONAL REGIONAL 2D W/PRB MEDICAL MEDICAL IMG ACQUISJ I&R RINGERS J7120 MEADOWVIE MEADOWVIE LACTATE 5 W W INFUSION REGIONAL REGIONAL UP TO MEDICAL MEDICAL 1000 CC ECG 29790 CLAIRE RANGEL ROUTINE 5 N RAG N RAG ECG W/LEAST 12 LDS W/I&R INITIAL 19405 [facility] 5 W GENERAL CARE/DAY SURGERY 30 MINUTES ECHO 60167 CLAIRE RANGEL TTHRC R-T 5 N RAG N RAG 2D W/WOM-MOD E COMPL SPEC&COLR D DUP-SCAN 47457 [facility] XTR VEINS 5 KELIN RADIOLOGY [place] ASSOCIAT L/LIMITED STUDY CATHETER C1758 MEADOWVIE MEADOWVIE URETERAL 4 W W [facility] [place] [address] MEADOWVIE MEADOWVIE SURG 4 W W PATHOLOGY [facility] GROSS&[place] [address] MEADOWVIE MEADOWVIE SURG 4 W W PATHOLOGY SCRIPPS [facility] MEDICAL GROSS&SIMI ROSCOPIC EXAM ANESTHESI 37818 [facility] TIAN FRANCO A VAGINAL 4 LTH ANESTHESI PROCEDURE A PSC W/BIOPSY NOS CONIZATIO 81819 SU JASMIN SU JASMIN N CERVIX 4 W/WO D&C RPR ELTRD EXC GONADOTRO 81419 CHRISTEN VELÁSQUEZ PIN 4 W W CHORIONIC [facility] MEDICAL MEDICAL QUALITATI VE BLOOD 81736 CHRISTEN VELÁSQUEZ COUNT 4 W W COMPLETE [facility] AUTO&AUTO MEDICAL MEDICAL DIFRNTL WBC COLLECTIO 18571 CHRISTEN VELÁSQUEZ N VENOUS 4 W W BLOOD [facility] VENIPUNCT MEDICAL MEDICAL URE URNLS DIP 00867 CHRISTEN MCGUIREWVIE 4 W W STICK/TAB [facility] LET MEDICAL MEDICAL REAGENT AUTO MICROSCOP Y POTASSIUM 18219 CHRISTEN VELÁSQUEZ SERUM 4 W W PLASMA/WH [facility] OLE BLOOD MEDICAL MEDICAL RADEX 46163 [place] ABDOMEN 4 HONG HONG COMPL W/DCBTS&/ ERC VIEWS REPAIR 92764 SPADY KELIN SPADY KELIN FIRST 4 ABDOMINAL WALL HERNIA IMPLANT 38503 SPADY KELIN SPADY KELIN MESH OPN 4 HERNIA RPR/[place] [address] LABORATOR LABORATOR SURG 4 Y Y PATHOLOGY CORPORATI CORPORATI ON OF AM ON OF AM GROSS&SIMI ROSCOPIC EXAM COLPOSCOP 13319 DARA DARA Y CERVIX 4 MARLEE MARLEE BX CERVIX & ENDOCRV CURRETAGE IADNA 71564 LABORATOR LABORATOR NEISSERIA 4 Y BILLY OF Y BILLY OF SANDRA SANDRA GONORRHOE H H AE AMPLIFIED PROBE TQ IADNA 81481 LABORATOR LABORATOR CHLAMYDIA 4 Y BILLY OF Y BILLY OF [place]DR[place] SANDRA TRACHOMAT H H IS AMPLIFIED PROBE TQ CYTP 59435 LABORATOR LABORATOR CERVICAL/ 4 Y BILLY OF Y BILLY OF VAGINAL [place]DR[place] SANDRA REQ H H INTERP PHYSICIAN CYTP C/V 19511 LABORATOR LABORATOR AUTO THIN 4 Y BILLY OF Y BILLY OF LYR SANDRA SANDRA PREPJ SCR H H MNL RESCR PHYS IADNA 56286 LABORATOR LABORATOR PAPILLOMA 4 Y BILLY OF Y BILLY OF VIRUS SANDRA SANDRA HUMAN H H AMPLIFIED PROBE TQ LOCM Q9967 [facility] [address] [phone] 4 JOHN JOHN MG/ML IODINE PHYSICIAN PHYSICIAN [place] [address] [facility] ABDOMEN & 4 JOHN LOPEZ PELVIS W/CONTRAS PHYSICIAN PHYSICIAN T S August MATERIAL URINE 34465 KENAN GRAYSON 4 CO CO TEST [facility] VISUAL DEPARTME [place] [address] [place] ABDOMINAL 4 [facility] REAL TIME W/IMAGE LIMITED RADEX ABD 81252 [place] COMPL 4 [facility] AQT ABD W/S/E/D VIEWS 1 VIEW BLOOD 27326 MEADOWVIE MEADOWVIE COUNT 4 W W COMPLETE [facility] REGIONAL AUTO&AUTO MEDICAL MEDICAL DIFRNTL WBC COMPREHEN 84130 MEADOWVIE MEADOWVIE SIVE 4 W W METABOLIC REGIONAL REGIONAL PANEL MEDICAL MEDICAL COLLECTIO 47619 MEADOWTAVIA MCGUIREWVIE N VENOUS 4 W W BLOOD REGIONAL REGIONAL VENIPUNCT MEDICAL MEDICAL URE CULTURE 20381 [place] MEAWVIE BACTERIAL 4 W W REGIONAL REGIONAL QUANTTATI MEDICAL MEDICAL VE COLONY COUNT URINE URNLS DIP 78900 MEADOWVIE MEADOWVIE 4 W W STICK/TAB REGIONAL REGIONAL LET MEDICAL MEDICAL REAGENT AUTO MICROSCOP Y INJECTION J3301 CHRISTEN [place] 4 W GENERAL III PAO TRIAMCINO SURGERY LONE ACETONIDE NOS 10 MG ARTHROCEN 95126 MERLINEDESTINEYTAVIA GORGE TESIS 4 W GENERAL III PAO ASPIR&/IN SURGERY J MAJOR JT/BURSA W/O US MRI ANY 28682 MEANEEL VELÁSQUEZ JT LOWER 4 W W EXTREM REGIONAL REGIONAL W/O MEDICAL MEDICAL CONTRAST MATRL COLLECTIO 95106 NANDINI NANDINI N VENOUS 4 AUD AUD BLOOD VENIPUNCT URE RADIOLOGI 74474 [facility] 4 JOHN LOPEZ KNEE COMPLETE PHYSICIAN PHYSICIAN 4/MORE S August VIEWS IM ADM 67553 NANDINI NANDINI PRQ ID 3 AUD AUD SUBQ/IM NJXS 1 [place] [address] [facility] THYROID 3 DIAGNOSTI DIAGNOSTI STIMULATI CS CS NG HORMONE TSH COMPREHEN 12927 [facility] SIVE 3 DIAGNOSTI DIAGNOSTI METABOLIC CS CS PANEL PHYSICAL 22725 KPI KPI THERAPY 3 THERAPY, THERAPY, EVALUATIO INC. INC. N RADEX [address] SPINE 3 JOHN JOHN THORACIC 3 VIEWS PHYSICIAN PHYSICIAN S AUGUST S AUGUST NFCT AGNT 59852 [facility] GENOTYP 3 Y Y NUCLEIC [facility] ACID HEPATITIS C VIRUS COLLECTIO 56592 [facility] VENOUS 3 Y Y BLOOD [facility] VENIPUNCT URE HEPATITIS 04093 [facility] C 3 Y Y ANTIBODY [facility] HEPATITIS 21474 [facility] A 3 Y Y ANTIBODY [facility] HAAB IADNA 87500 [facility] HEPATITIS 3 Y Y [facility] [place] [address] [facility] ABDOMINAL 3 EIDER L[place]SEY REAL RADIOLOGY TIME ASSOCIAT W/IMAGE LIMITED NFCT AGNT 91137 VIRO MED VIRO MED GENOTYP 3 LABORATOR LABORATOR NUCLEIC IES IES ACID HEPATITIS C VIRUS IADNA 99987 VIRO MED VIRO MED HEPATITIS 3 LABORATOR LABORATOR C IES IES AMPLIFIED PROBE&REV RSE TRANSCR DETERMINA 53798 AWOSIKA AWOSIKA TION 3 BRANDEN BRANDEN REFRACTIV E STATE VISUAL 24230 AWOSIKA AWOSIKA FIELD XM 3 BRANDEN BRANDEN UNI/BI W/INTERP INTERMED EXAM URNLS DIP 61096 POLLY MATIAS 2 [facility] STICK/TAB INC INC LET REAGENT AUTO MICROSCOP Y INSJ 48505 POLLY MATIAS NON-NDWEL 2 [facility] LG INC INC BLADDER CATHETER CULTURE 55740 POLLY MATIAS BACTERIAL 2 [facility] INC INC QUANTTATI VE COLONY COUNT URINE CULTURE 59609 LAB BILLY LAB BILLY BACTERIAL 2 AMERIC [employer] [facility] HOLDING QUANTTATI VE COLONY COUNT URINE CULTURE 68866 LAB BILLY LAB BILLY BCT 2 AMERIC AMERIC ISOL&PRSM HOLDING HOLDING PTV ID ISOLATE EA URINE SUSCEPTIB 79965 LAB BILLY LAB BILLY LTY STDY 2 AMERIC AMERIC ANTIMICRB HOLDING HOLDING IAL MICRO/[place] [address] LAB BILLY LAB BILLY THYROID 2 AMERIC AMERIC STIMULATI [employer] [address] LAB BILLY LAB BILLY FREE 2 AMERIC AMERIC THYROXINE HOLDING HOLDING URINE 93592 KENAN GRAYSON 2 CO [facility] VISUAL DEPARTME DEPARTME COLOR CMPRSN [place] URINLS 38437 NANDINI NANDINI DIP 1 AUD AUD STICK/TAB LET REAGNT NON-AUTO MICRSCPY BLOOD 14461 LAB BILLY LAB BILLY COUNT 1 AMERIC AMERIC COMPLETE HOLDING HOLDING AUTO&AUTO DIFRNTL WBC BLOOD 17475 LAB BILLY LAB BILLY COUNT 1 AMERIC AMERIC COMPLETE [employer] HOLDING AUTO&[place] [address] LAB BILLY LAB BILLY THYROID 1 AMERIC AMERIC STIMULATI HOLDING HOLDING NG HORMONE TSH ANES 52138 COMMONWEA KAMARA INTRAPERI 1 LTH ANT TONEAL ANESTHESI UPPER A PSC ABDOMEN W/LAPS NOS LAPAROSCO 00955 MEANEEL MANSHIP PY SURG 1 W GENERAL LAW CHOLECYST SURGERY ECTOMY LEVEL III 66305 AMERIPATH HARLAMERT SURG 1 [place] INC HEN PATHOLOGY GROSS&SIMI ROSCOPIC EXAM UNLISTED 06931 MEADOWVIE MEADOWVIE PX FEMALE 1 W W GENITAL REGIONAL REGIONAL SYSTEM MEDICAL MEDICAL NONOBSTET RICAL URINE 60691 MEADOWVIE MEADOWVIE 1 W W TEST REGIONAL REGIONAL VISUAL MEDICAL MEDICAL COLOR CMPRSN [place] RADIOLOGI 91825 [place] C EXAM 1 HONG CHEST 2 RADIOLOGY VIEWS ASSOCIAT FRONTAL&L ATERAL HEPATBL 82015 [facility] DUX SYS 0 K[place] [address] [place] ABDOMINAL 0 KELIN REAL RADIOLOGY TIME ASSOCIAT W/IMAGE LIMITED BLOOD 22216 MEADOWVIE MEADOWVIE COUNT 0 W W COMPLETE REGIONAL REGIONAL AUTO&AUTO MEDICAL MEDICAL DIFRNTL WBC COMPREHEN 12678 MEADOWVIE MEADOWVIE SIVE 0 W W METABOLIC REGIONAL REGIONAL PANEL MEDICAL MEDICAL COLLECTIO 07665 SHAYLA[place]AV[place] MEAWVIE N VENOUS 0 W W BLOOD [facility] VENIPUNCT MEDICAL MEDICAL URE URNLS DIP 82892 MEAWTAVIA MEADOWVIE 0 W W STICK/TAB [facility] LET MEDICAL MEDICAL [place] [address] SHAYLAWTAVIA MEAWTAVIA AMYLASE 0 W W SCR[place]PS [place] [address] [place]AWTAVIA MEADOWVIE LIPASE 0 W W [facility] MEDICAL MEDICAL URINE 56165 CHRISTEN MCGUIREWTAVIA 0 W W TEST [facility] VISUAL MEDICAL MEDICAL COLOR CMPRSN [place] HGB 19982 NANDINI NANDINI GLYCOSYLA 0 AUD AUD SCOT DEVICE CLEARED FDA HOME USE GENERAL 49428 LAB BILLY LAB BILLY HEALTH 0 AMERIC [place] [address] LAB BILLY LAB BILLY FREE 0 AMERIC [place] [address] [facility] TRANSVAGI 0 [place] [address] SILVESTRE RIVERS TRANSVAGI 0 [place] [facility] [place] [address] SILVESTRE RIVERS ABDOMEN 0 CO CO W/O & [facility]ITAL [facility]PITAL W/CONTRAS T MATERIAL CT PELVIS 49369 RIVERSWONG RIVERS 0 CO CO [facility] T MATERIAL BLOOD 82370 RIVERS SILVESTRE COUNT 0 CO CO [facility] AUTO&AUTO DIFRNTL WBC GONADOTRO 27247 [place] RIVERS PIN 0 CO CO [facility] QUALITATI VE COLLECTIO 27461 SILVESTRE RIVERS N VENOUS 0 CO MA BLOOD [facility] VENIPUNCT URE COMPREHEN 56311 RIVERSWONG RIVERS SIVE 0 CO [facility] PANEL RADEX 28074 POLLY MATIAS ELBOW 0 [facility] COMPLETE INC INC MINIMUM 3 [place] [address] [facility] OF THYROID 0 [facility] INC STIMULATI NG HORMONE TSH LIPID 81044 [facility] OF PANEL 0 [facility] INC COLLECTIO 09434 MERCEDEZ NWESOME N VENOUS 0 , CAMILLA , CAMILLA BLOOD VENIPUNCT URE GENERAL 69837 [facility] OF HEALTH 0 [facility] INC PANEL REMOVAL 92402 MER[facility] NEWSOME IMPACTED 0 , [place] , [place] CERUMEN INSTRUMEN TATION UNILAT COLLECTIO 46910 MEADOWVIE MEADOWVIE N VENOUS 9 W W BLOOD [facility] VENIPUNCT [facility] MEDICAL URE CENTER CENTER GONADOTRO 22724 MEADOWVIE MEADOWVIE PIN 9 W W [facility] QUANTITAT CENTER CENTER BRUNILDA URNLS DIP 51445 JAMES PEREYRA, 9 PRIMARY BRIDGETTE P STICK/TAB CARE LET RGNT CENTERINC AUTO W/O MICROSCOP Y URNLS DIP 84207 JAMES PEREYRA, PRIMARY BRIDGETTE P STICK/TAB CARE LET CENTERINC REAGENT AUTO MICROSCOP Y IADNA 86213 [facility] NEISSERIA 9 [facility] GONORRHOE AE AMPLIFIED PROBE TQ IADNA 25882 [facility] PAPILLOMA 9 [facility] VIRUS HUMAN AMPLIFIED PROBE TQ IADNA 54299 [facility] CHLAMYDIA 9 [facility] TRACHOMAT IS AMPLIFIED PROBE TQ GROUND A0425 [facility] MILEAGE 9 CO AMB CO AMB PER SERVICE SERVICE STATUTE MILE AMBULANCE A0429 [facility] SERVICE 9 CO AMB CO AMB BLS SERVICE [place] [address] AMERIPATH [place], SURG 8 [place] INC [place] D PATHOLOGY GROSS&SIMI ROSCOPIC EXAM COLSC FLX 49532 MEADOWVIE MEADOWVIE W/RMVL 8 W W OF TUMOR [facility] POLYP [facility] MEDICAL LESION CENTER CENTER SNARE TQ POSTPARTU 41083 John [facility] 8 PRIMARY MARQUIS R ONLY CARE SEPARATE CENTERINC PROCEDURE CULTURE 31863 MEADOWVIE MEADOWVIE BACTERIAL 8 W W [facility] CENTER COUNT URINE URNLS DIP 26844 MEADOWVIE MEADOWVIE 8 W W STICK/TAB [facility] LET MEDICAL MEDICAL REAGENT CENTER CENTER AUTO MICROSCOP Y HOSPITAL 18758 JAMES [facility], DISCHARGE 8 PRIMARY ALIN A DAY CARE MANAGEMEN CENTERINC T 30 MIN/< SBSQ 03842 [facility] 8 PRIMARY ALIN A CARE/DAY CARE 15 CENTERINC MINUTES ANES 79032 [facility] JOSE, CESARN 8 LTH ASPEN N DLVR FLWG ANESTHESI A PSC NEURAXIAL LABOR ANALG/ANE S 16645 [facility] LJ, DELIVERY 8 PRIMARY MARQUIS R ONLY CARE CENTERINC ANESTHESI 37853 [facility] JOSE, A 8 LTH ASPEN N ANESTHESI DELIVERY A PSC ONLY OTH 6639 MEADOWVIE MEADOWVIE BILATERAL 8 W W [facility] DESTRUC/O MEDICAL MEDICAL CCLUSION CENTER CENTER FALLOPIAN TUBES LOW 741 MEADOWVIE MEADOWVIE CERVICAL 8 W W [facility] SECTION MEDICAL MEDICAL CENTER CENTER CULTURE 95905 MEADOWVIE MEADOWVIE BACTERIAL 8 W W [facility] QUANTTATI MEDICAL MEDICAL VE COLONY CENTER CENTER COUNT URINE URNLS DIP 87756 MEADOWVIE MEADOWVIE 8 W W STICK/TAB [facility] LET MEDICAL MEDICAL REAGENT CENTER CENTER AUTO MICROSCOP Y POTASSIUM 87163 MEADOWVIE MEADOWVIE SERUM 8 W W PLASMA/[facility] BLOOD MEDICAL MEDICAL CENTER CENTER COLLECTIO 97821 MEADOWVIE MEADOWVIE N VENOUS 8 W W BLOOD [facility] VENIPUNCT MEDICAL MEDICAL URE CENTER CENTER URNLS DIP 83894 JAMES PEREYRA, Telma PRIMARY BRIDGETTE P STICK/TAB CARE LET RGNT CENTERINC NON-AUTO W/O MICRSCP BLOOD 28020 MEADOWVIE MEADOWVIE COUNT 8 W W COMPLETE [facility] AUTO&AUTO MEDICAL MEDICAL DIFRNTL CENTER CENTER WBC URNLS DIP 95542 JAMES PEREYRA, 8 PRIMARY BRIDGETTE P STICK/TAB CARE LET RGNT CENTERINC NON-AUTO W/O MICRSCP URNLS DIP 55539 JAMES HERRERA, 8 PRIMARY ANDRZEJ J STICK/TAB CARE LET RGNT CENTERINC NON-AUTO W/O MICRSCP CUL 25183 CHRISTEN VELÁSQUEZ PRSMPTV 8 W W [facility] CENTER W/COLONY ESTIMJ URNLS DIP 81545 JAMES CALHOUN, 8 PRIMARY MARQUIS R STICK/TAB CARE LET RGNT CENTERINC NON-AUTO W/O MICRSCP URNLS DIP 64431 JAMES PEREYRA, 8 PRIMARY BRIDGETTE P STICK/TAB CARE LET RGNT CENTERINC NON-AUTO W/O MICRSCP COLLECTIO 71069 JAMES PEREYRA, N VENOUS 8 PRIMARY BRIDGETTE P BLOOD CARE VENIPUNCT CENTERINC URE BLOOD 46523 JAMES PEREYRA, COUNT 8 PRIMARY BRIDGETTE P HEMOGLOBI CARE N CENTERINC URNLS DIP 36910 JAMES CALHOUN, 8 PRIMARY MARQUIS R STICK/TAB CARE LET RGNT CENTERINC NON-AUTO W/O MICRSCP URNLS DIP 93817 JAMES BLUE, 8 PRIMARY DEANDRE W STICK/TAB CARE LET RGNT CENTERINC NON-AUTO W/O MICRSCP URNLS DIP 86568 JAMES HERRERA, 8 PRIMARY ANDRZEJ J STICK/TAB CARE LET RGNT CENTERINC NON-AUTO W/O MICRSCP COLLECTIO 19574 JAMES HERRERA, N VENOUS 8 PRIMARY ANDRZEJ J BLOOD CARE [place] [address] [facility] THYROID 8 [facility] [place] [address] [facility] OF FREE 8 [facility] THYROXINE GLUCOSE 15993 [facility] POST 8 [facility] GLUCOSE [facility] G0378 CHRISTEN VELÁSQUEZ OBSERVATI 8 W W ON [facility] PER HOUR CENTER CENTER 85859 JAMES PEREYRA, NONSTRESS 8 PRIMARY BRIDGETTE P TEST CARE CENTERINC URNLS DIP 73343 JAMES MELCHOR, 8 PRIMARY YOGESH L STICK/TAB CARE LET RGNT CENTERINC NON-AUTO [place] [address] [facility] OF FREE 8 [facility] [place] [address] [facility] THYROID 8 [facility] STIMULATI NG HORMONE TSH [place] PREG 71403 JAMES BLOOD LJ, UTERUS 8 PRIMARY MARQUIS R W/DETAIL CARE CENTERINC MITA 1ST GESTATION URNLS DIP 94015 JAMES CALHOUN, 8 PRIMARY MARQUIS R STICK/TAB CARE LET RGNT CENTERINC NON-AUTO W/O MICRSCP MEDICAL 79028 DHS/CO GRAYSON NUTRITION 8 [facility] ASSMT&IVN BANK ACCT DEPARTMEN TJ INDIV T EACH 15 SC URNLS DIP 79815 JAMES ROSEN, 8 PRIMARY CLARITZA E STICK/TAB CARE LET RGNT CENTERINC NON-AUTO W/O MICRSCP IADNA 94839 [facility] NEISSERIA 8 DIAGNOSTI DIAGNOSTI CS IN CS IN GONORRHO[place] [address] [facility] OF [facility] OF FREE 8 [facility] THYROXINE IADNA 72403 [facility] CHLAMYDIA 8 DIAGNOSTI DIAGNOSTI CS IN CS IN TRACHOMAT IS AMPLIFIED PROBE TQ CYTP C/V 11042 [facility] AUTO THIN 8 DIAGNOSTI DIAGNOSTI LYR CS IN CS IN PREPJ SCR MNL RESCR PHYS URNLS DIP 95958 JAMES DIAMOND, 8 PRIMARY ALIN A STICK/TAB CARE LET RGNT CENTERINC NON-AUTO W/O [facility]CR[facility]P US PREG 06050 JAMES HERRERA, UTERUS 8 PRIMARY ANDRZEJ J REAL TIME CARE W/IMAGE CENTERINC DCMTN TRANSVAG URNLS DIP 51708 JAMES HERRERA, 8 PRIMARY ANDRZEJ J STICK/TAB CARE LET RGNT [facility]ENTER[facility] NON-AUTO W/O MICRSCP URNLS DIP 72189 JAMES PEREYRA, 8 PRIMARY BRIDGETTE P STICK/TAB CARE LET RGNT CENTERINC NON-AUTO W/O MICR[facility]P COLLECTIO 10799 JAMES PEREYRA, N VENOUS 8 PRIMARY BRIDGETTE P BLOOD CARE VENIPUNCT CENTERINC URE Encounters Encounter Start End Date Code Location Performer Type Date [facility] DE[facility]MEN EMERGENCY T VISIT PHYS HIGH/URGE NT SEVERITY [facility] 79122 JAMES BLOOD ALLY [facility] OUTPATIEN 5 5 PRIMARY T VISIT CARE 15 CENTER MINUTES EMERGENCY 28678 GELY WOODRUFF DEPT 5 5 PHYSICIAN SIMI VISIT S, PLLC HIGH SEVERITY& THREAT [facility] - 5 5 [facility] 69317 CLAIRE CLAIRE OUTPATIEN 5 5 N RAG N RAG T NEW 45 MINUTES EMERGENCY 35960 [facility] LJ DEPT 5 5 [facility] APPLE VISIT EMERGENCY HIGH PHYS SEVERITY& THREAT FUN EMERGENCY 11218 [facility] 4 4 [facility] DEPARTMEN EMERGENCY T VISIT PHYS MODERATE SEVERITY [facility]OSP[facility] - 4 4 [facility] 49785 JAMES FLOWERSY JASMIN OUTPATIEN 4 4 PRIMARY T VISIT CARE 15 CENTER MINUTES EMERGENCY 30649 [facility] 4 4 DEPARTMEN T VISIT HIGH/URGE NT SEVERITY [facility] - 4 [facility] 21344 JAMES FLOWERSY JASMIN OUTPATIEN 4 4 PRIMARY T VISIT CARE 40 CENTER MINUTES EMERGENCY 73881 [facility] LAMBERT DEPT 4 4 ORA ORA VISIT HIGH SEVERITY& THREAT [facility] OFFICE 88662 KENAN [place] OUTPATIEN 4 4 CO CO T VISIT HEALTH HEALTH 10 DEPARTME DEPARTME MINUTES EMERGENCY 12377 FAUSTO LAMBERT 4 4 ORA ORA DEPARTMEN T VISIT MODERATE SEVERITY [facility] 54357 [facility] [place] OUTPATI[facility] 4 4 W GENERAL III PAO T VISIT SURGERY 15 MINUTES HOSPITAL [place] - 4 4 W OUTPATI REGIONAL T MEDICAL OFFICE 39251 [facility] [place] OUTPATIEN 4 4 III PAO III PAO T NEW 30 MINUTES OFFICE 06684 NANDINI NANDINI OUTPATIEN 4 4 AUD AUD T VISIT 15 MINUTES OFFICE 02611 NANDINI NANDINI OUTPATIEN 3 3 AUD AUD T VISIT 25 MINUTES EMERGENCY 13727 ECTOR CABRERA 3 3 EMERGENCY DEPARTMEN SERVICES T VISIT MODERATE SEVERITY [facility]OSPITAL [facility] - 3 3 Y [facility] T OFFICE 59589 [place] DIEGO ANDREE OUTPATIEN 3 3 MEDICAL T NEW 60 SERV MINUTES FOUNDATIO OFFICE 93070 NANDINI NANDINI OUTPATIEN 3 3 AUD AUD T VISIT 10 MINUTES OFFICE 71530 AWOSIKA AWOSIKA OUTPATIEN 3 3 BRANDEN BRANDEN T NEW 30 MINUTES EMERGENCY 91760 [facility] 2 2 [facility] DEPARTMEN INC T VISIT MODERATE SEVERITY EMERGENCY 12664 ECTOR 2 2 EMERGENCY DEPARTMEN SERVICES T VISIT HIGH/URGE NT SEVERITY [facility] - 2 2 [facility] OUTPATIEN INC T OFFICE 54209 KENAN [place] OUTPATIEN 2 2 CO CO T VISIT HEALTH HEALTH 10 DEPARTME DEPARTME MINUTES OFFICE 22307 NANDINI NANDINI OUTPATIEN 1 1 AUD AUD T VISIT 25 MINUTES EMERGENCY 29542 ECTOR ROPER 1 1 EMERGENCY CHR DEPARTMEN SERVICES T VISIT HIGH/URGE NT SEVERITY OFFICE 42766 NANDINI NANDINI OUTPATIEN 1 1 AUD AUD T VISIT 25 MINUTES OFFICE 16982 NANDINI NANDINI OUTPATIEN 1 1 AUD AUD T VISIT 25 MINUTES EMERGENCY 05720 ECTOR SCHMIDTRU[facility]O CABRERA 1 1 EMERGENCY DEPARTMEN SERVICES T VISIT HIGH/URGE NT SEVERITY EMERGENCY 86569 ECTOR ROPER 1 1 EMERGENCY [facility] DEPARTMEN SERVICES T VISIT HIGH/URGE NT SEVERITY OFFICE 32602 NANDINI NANDINI OUTPATIEN 1 1 AUD AUD T VISIT 25 MINUTES [facility] - 1 1 [facility] L[facility] - 0 0 W [facility] MEDICAL OFFICE 73553 NANDINI NANDINI OUTPATIEN 0 0 AUD AUD T VISIT 25 MINUTES EMERGENCY 57905 SHAYLAWVIE 0 0 W [facility] T VISIT MEDICAL HIGH/URGE NT SEVERITY EMERGENCY 84783 ECTOR CABRERA DEPT 0 0 EMERGENCY VISIT SERVICES HIGH SEVERITY& THREAT [facility] LORRIEVIE - 0 0 W [facility] MEDICAL OFFICE 21719 NANDINI NANDINI OUTPATIEN 0 0 AUD AUD T VISIT 25 MINUTES OFFICE 44950 JAMES LATHAM OUTPATIEN 0 0 PRIMARY BERTA T VISIT CARE 25 CENTER MINUTES OFFICE 95841 JAMES CO LJ, OUTPATIEN 0 0 PRIMARY MARQUIS R T V[facility] 77031 RINALDINI RINALDINI OUTPATIEN 0 0 , CAMILLA , CAMILLA T VISIT 15 MINUTES HOSPITAL POLLY - 0 0 [facility] OUTPATIEN INC T EMERGENCY 67125 ECTOR RANJAN, 0 0 EMERGENCY [facility] DEPARTMEN SERVICES T VISIT HIGH/URGE ASSOCIATE NT S SEVERITY EMERGENCY 62184 POLLY 0 0 [facility] DEPARTMEN INC T VISIT LOW/MODER SEVERITY OFFICE 28057 RINALDINI RINALDINI OUTPATIEN 0 0 , CAMILLA , CAMILLA T VISIT 15 MINUTES OFFICE 85137 RINALDINI RINALDINI OUTPATIEN 0 0 , CAMILLA , CAMILLA T VISIT 15 MINUTES OFFICE 50998 RINALDINI RINALDINI OUTPATIEN 0 0 , CAMILLA , CAMILLA T NEW 30 MINUTES HOSPITAL MEADOW - 9 9 W [facility] OFFICE 39177 PARMINDER DINERO 9 9 PRIMARY BRIAN T VISIT CARE 15 CENTERINC MINUTES OFFICE 20267 PARMINDER KARIMI 9 9 PRIMARY BRIDGETTE P T VISIT CARE 10 CENTERINC MINUTES OFFICE 42255 NANDINI DELATORRE OUTPATIEN 9 9 YOMI HAIRREY T VISIT 25 MINUTES EMERGENCY 01142 ECTOR SWANSON 9 9 EMERGENCY , [facility] DEPARTMEN SERVICES A T VISIT HIGH/URGE ASSOCIATE NT S SEVERITY OFFICE 01445 PARMINDER DINERO 9 9 PRIMARY BRIAN T VISIT CARE 25 CENTERINC MINUTES HOSPITAL [facility] - 8 8 W [facility] OFFICE 61813 SHAY RAMOS 8 8 TRACE MARQUIS A ION GASTROENT NEW/ESTAB EROLOGY PATIENT 40 MIN HOSPITAL [facility] 8 8 W [facility] MEAD[facility] - 8 8 W INPATIENT [facility] MEADOWTAVIA - 8 8 W [facility] OFFICE 31902 JAMES PEREYRA OUTPATIEN 8 8 PRIMARY BRIDGETTE P T VISIT CARE 15 CENTERINC MINUTES OFFICE 22263 JAMES CO RODDY OUTPATIEN 8 8 PRIMARY BRIDGETTE P T VISIT CARE 15 CENTERINC MINUTES OFFICE 85115 JAMES CO LJ OUTPATIEN 8 8 PRIMARY MARQUIS R T VISIT CARE 15 CENTERINC MINUTES OFFICE 75626 JAMES HERRERA OUTPATIEN 8 8 PRIMARY ANDRZEJ J T VISIT CARE 15 CENTERINC MINUTES OFFICE 83136 JAMES CO LJ OUTPATIEN 8 8 PRIMARY MARQUIS R T VISIT CARE 15 CENTERINC MINUTES [facility]OSPITAL [facility]STEN - 8 8 W [facility] OFFICE 46689 JAMES PEREYRA OUTPATIEN 8 8 PRIMARY BRIDGETTE P T VISIT CARE 15 CENTERINC MINUTES OFFICE 84884 JAMES CALHOUN OUTPATIDARIUS 8 8 PRIMARY MARQUIS R T VISIT CARE 15 CENTERINC MINUTES OFFICE 90697 JAMES BLUE OUTPATIDARIUS 8 8 PRIMARY DEANDRE W T VISIT CARE 15 CENTERINC MINUTES OFFICE 59425 JAMES HERRERA OUTPATIEN 8 8 PRIMARY ANDRZEJ J T VISIT CARE 15 CENTERINC MINUTES [facility]OSPITAL [facility] - 8 8 W [facility] OFFICE 88085 JAMES MELCHOR OUTPATIEN 8 8 PRIMARY YOGESH L T VISIT CARE 15 CENTERINC MINUTES OFFICE 71946 JAMES CALHOUN OUTPATIDARIUS 8 8 PRIMARY MARQUIS R T VISIT CARE 15 CENTERINC MINUTES OFFICE 68037 PARMINDER LLOYD 8 8 PRIMARY CLARITZA E T VISIT CARE 15 CENTERINC MINUTES OFFICE 83118 PARMINDER LARSEN 8 8 PRIMARY ALIN A T VISIT CARE 15 CENTERINC MINUTES OFFICE 05040 PARMINDER MILLER 8 8 PRIMARY ANDRZEJ Clemente T VISIT CARE 15 CENTERINC MINUTES OFFICE 76428 PARMINDER KARIMI 8 8 PRIMARY BRIDGETTE P T VISIT CARE 15 CENTERINC MINUTES
--- OUTSIDE RECORDS SUMMARY | 2016-08-30 23:01 | External Medical Summary Rpt ---
Author Author , Organization [employer] Address Unknown Phone Unavailable Care Team Providers Care Research And Development Tester Name Role Phone [facility] [place] [facility], Unavailable [...] Unavailable [facility] Unavailable Unavailable [facility], [facility] Unavailable Unavailable [facility], [facility] GUERLINE HONG, GUERLINE Unavailable Unavailable HONG SU JASMIN, SU JASMIN Unavailable Unavailable DEANDRE BLUE DOTY, Unavailable Unavailable DEANDRE Kauffman [facility], Unavailable Unavailable [facility] RANJAN SIMI, RANJAN Unavailable Unavailable SIMI FLETCHER [...] KELIN HILTON RAMIREZ, Unavailable Unavailable HILTON RAMIREZ [facility] Unavailable Unavailable IMAGING ASS, [facility] Unavailable Unavailable [facility] Unavailable Unavailable [facility] # Unavailable Unavailable [id number], [facility] # [id number] [id number], Unavailable Unavailable [id number], Unavailable Unavailable [facility] Unavailable Unavailable HOLDING, [facility] Unavailable Unavailable HOLDING, [facility] [employer], Unavailable Unavailable [facility] [facility] Unavailable Unavailable SANDRA H, [facility] Unavailable Unavailable [facility]DRA [facility], [facility] Unavailable Unavailable CORPORATION OF AM, [facility] Unavailable Unavailable [facility], [facility] SHAYLA LAW, SHAYLA Unavailable Unavailable LAW [facility] Unavailable Unavailable SERVICES, [facility] Unavailable Unavailable ASSOCIAT, [facility] Un[facility] Unavailable SURG[facility], [facility] Unavailable Unavailable MEDICAL, [facility] Unavailable Unavailable MEDICAL CENTER, [facility] MEESE, BRIDGETTE P, Unavailable Unavailable MEESE [...] ALIN A, Unavailable Unavailable DARA, ALIN A YAIHR NEWSOME, Unavailable Unavailable YAHIR NEWSOME [id number], Unavailable Unavailable [id number] Unavailable Unavailable [facility]AR, [facility] Unavailable Unavailable DEPARTAR, [facility] Unavailable Unavailable DEPARTMENT, [facility] SADEK MOH, SADEK MOH Unavailable [...] RAG NATALIIA RAG, Unavailable Unavailable NATALIIA RAG [facility] Unavailable Unavailable PHYSICIANS MAY, [facility] Unavailable Unavailable PHYSICIANS MAY, [facility] PHYSICIANS MAY DE LA CRUZ KER, DE LA CRUZ KER Unavailable Unavailable [facility], Unavailable Unavailable [facility], Unavailable Unavailable [facility] Unavailable Unavailable LABORATORIES, [facility] MARQUIS DEVRIES, Unavailable Unavailable MARQUIS DEVRIES, LJ Unavailable Unavailable MARQUIS CARABALLO, Unavailable Unavailable MARQUIS CALHOUN KATHRYN, Unavailable Unavailable BRIAN POE Purpose Continuity of Care Document - 05-05-2007 through 2016 Problems Code Diagnosis DOS Provider Status J209 ACUTE 01-24-2016 [facility]Y UNSPECIFIED PHYS R05 COUGH 01-24-2016 [facility] Z720 TOBACCO USE 01-24-2016 [facility] I889 NONSPECIFIC 03-06-2015 [facility] IS UNSPECIFIED R7989 OTHER SPEC 03-06-2015 [facility] FINDINGS BLOOD CHEMISTRY 7245 UNSPECIFIED 01-30-2015 [facility] 61326 ABDOMINAL 01-14-2015 GELY PAIN OTHER PHYSICIANS, SPECIFIED [facility] SITE [address] [facility] COMP 01-14-2015 [facility] DEVICE IMAGING ASS IMPLANT&GRA FT OTH 75690 ENDOCARDITI 05-25-2014 [facility] S VALVE REGIONAL UNSPECIFIED MEDICAL UNSPECIFIED CAUSE 92497 OTHER 05-25-2014 NATALIIA ENDOCARDITI RAG S VALVE UNSPECIFIED 6823 CELLULITIS 05-25-2014 [facility] AND ABSCESS REGIONAL OF UPPER MEDICAL ARM AND FOREARM 4519 PHLEBITIS&T 05-14-2014 NATALIIA HROMBOPHLEB RAG ITIS OF UNSPECIFIED SITE 65717 ACUTE 05-13-2014 [facility] SUP VEINS UPPER EXT 57050 UNSPECIFIED 02-21-2014 [facility] DENTAL N EMERGENCY CARIES PHYS 5259 UNSPECIFIED 02-21-2014 [facility] DISORDER N EMERGENCY TEETH&SUPPO PHYS RTING STRUCTURES 75992 UNSPECIFIED 01-09-2014 [facility] VIRAL REGIONAL HEPATITIS C MEDICAL W/O HEPATIC COMA 07047 DYSPLASIA 01-09-2014 [facility] OF CERVIX H UNSPECIFIED ANESTHESIA PSC 79318 MODERATE 01-09-2014 [facility] DYSPLASIA REGIONAL OF CERVIX MEDICAL 7969 OTHER 01-09-2014 [facility] NONSPECIFIC REGIONAL ABNORMAL MEDICAL FINDING 93486 PAP SMER 01-05-2014 [facility] BLOOD CERV W/HI PRIMARY [facility] SQUAMOUS INTRAEPITH LES V7283 OTHER 01-05-2014 [facility]OD SPECIFIED PRIMARY PRE-OPERATI CARE CENTER VE EXAMINATION 10867 UNSPECIFIED 12-18-2013 [facility] INFECTION IN CCE & UNS SITE 6202 OTHER AND 12-13-2013 [facility] UNSPECIFIED REGIONAL OVARIAN MEDICAL CYST 7873 FLATULENCE 10-24-2013 [facility] ERUCTATION AND GAS PAIN 52183 ABDOMINAL 10-24-2013 [facility] ORA PAIN, PERIUMBILIC 7935 NONSPECIFIC 10-24-2013 [facility] ABN FINDING RAD & OTH EXAM ORGAN 29488 INCISIONAL 10-19-2013 SPAD[facility] KELIN HERNIA WITH OBSTRUCTION [...] 09-20-2013 [facility] WITHOUT MENTION OBSTRUCTION /GANGRENE 21328 UNSPEC 09-20-2013 [facility] W/O PHYSICIANS MENTION MAY OBST/GANGRE N 5718 OTHER 09-20-2013 [facility] CHRONIC NONALCOHOLI C LIVER DISEASE 69465 OTHER 09-20-2013 [facility] SPECIFIED DISORDERS OF URETHRA V7241 09-14-2013 [facility] OR TEST DEPARTME NEGATIVE RESULT 79267 ABDOMINAL 09-13-2013 [facility] PAIN, UNSPECIFIED SITE 62872 ABDOMINAL 09-13-2013 POR[facility] ORA PAIN, LEFT UPPER QUADRANT V4579 OTHER 09-13-2013 [facility] ACQUIRED ABSENCE OF ORGAN 32525 ACUT PEPTC 09-11-2013 [facility] ULCR UNS REGIONAL SITE MEDICAL W/HEMORR&PE RF W/O OBST 24606 UNSPECIFIED 09-11-2013 [facility] 27223 PAIN IN 08-28-2013 [facility] JOINT, GENERAL LOWER LEG SURGERY 8362 OTHER TEAR 08-28-2013 [facility] CARTILAGE GENERAL OR MENISCUS SURGERY KNEE CURRENT 9597 INJURY 08-28-2013 [facility] OTHER&UNSPE GENERAL CIFIED KNEE SURGERY LEG ANKLE&FOOT 53710 EFFUSION OF 08-24-2013 LEIGHANN [place] LOWER LEG JOINT 2449 UNSPECIFIED 07-07-2013 NANDINI AUD HYPOTHYROID ISM 41251 UNSPECIFIED 07-07-2013 [facility] Y OF KNEE AUGUST 9598 INJURY 07-07-2013 [place] JOH OTHER AND UNSPECIFIED UNSPECIFIED SITE V7791 SCREENING 07-07-2013 NANDINI AUD FOR LIPOID DISORDERS 6961 OTHER 03-22-2013 N[facility]INI AUD PSORIASIS AND SIMILAR DISORDERS V0481 NEED 03-22-2013 NANDINI AUD PROPHYLACTI C VACCINATION &INOCULATIO N FLU 8471 THORACIC 07-26-2012 I [facility], STRAIN INC. 4619 ACUTE 07-25-2012 [facility] SINUS[facility]IS, [facility]ERGENCY UNSPECIFIED SERVICES 20008 DEGEN 07-19-2012 [facility] ORACOLUMBAR ASSOCIAT INTERVERTEB RAL DISC 25272 CHRONIC 07-06-2012 [facility] WITHOUT MENTION HEPATIC COMA V700 ROUTINE 07-06-2012 [facility] MEDICAL EXAM@HEALTH CARE FACL 0701 VIRAL 05-10-2012 [facility] JONH WITHOUT PHYSICIANS MENTION OF AUGUST HEPATIC COMA 12144 UNSPECIFIED 05-06-2012 AWOSIKA BRANDEN ASTIGMATISM 7840 HEADACHE 05-06-2012 AWOSIKA BRANDEN 5990 URINARY 11-28-2011 [facility] TRACT EMERGENCY INFECTION SERVICES SITE NOT SPECIFIED 49661 UNSPECIFIED 11-28-2011 [facility] RETENTION EMERGENCY OF URINE SERVICES 7099 UNSPECIFIED 11-13-2011 [facility] DISORDER AMERIC OF HOLDING SKIN&SUBCUT ANEOUS TISSUE 2662 OTHER 07-17-2011 KENAN Snow-COMPLEX CO HEALTH DEFICIENCIE DEPARTME S 5959 UNSPECIFIED 02-07-2011 [facility] CYSTITIS EMERGENCY SERVICES 2384 NEOPLASM 12-19-2010 NANDINI AUD UNCERTAIN BEHAVIOR POLYCYTHEMI A VERA 2890 POLYCYTHEMI 12-19-2010 [facility] A, AMERIC SECONDARY HOLDING 8509 UNSPECIFIED 10-24-2010 NANDINI AUD CONCUSSION 71655 UNSPECIFIED 10-11-2010 [facility] ACUTE EMERGENCY [place]CTIVI SERVICES [place] 93250 OTHER 10-11-2010 [facility] DISEASES OF EMERGENCY NASAL SERVICES CAVITY AND SINUSES 9190 ABRASION/FR 10-11-2010 [facility] ICION BURN EMERGENCY OTH MX&UNS SERVICES SITE W/O INF 4660 ACUTE 08-06-2010 N[facility]INI AUD BRONCHITIS 6262 EXCESSIVE 06-06-2010 NANDINI AUD OR FREQUENT MENSTRUATIO N 03012 CHOLECYSTIT 05-08-2010 [facility] IS, H UNSPECIFIED ANESTHESIA PSC 12875 CHRONIC 05-08-2010 [facility] CHOLECYSTIT REGIONAL IS MEDICAL 5758 OTHER 05-08-2010 [facility] SPECIFIED REGIONAL DISORDER OF MEDICAL GALLBLADDER 6146 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 [facility] PERITONEAL REGIONAL ADHESIONS, MEDICAL FEMALE 7856 ENLARGEMENT 05-08-2010 [facility] [place] INC NODES 7862 COUGH 05-06-2010 [facility] 90617 ABDOMINAL 04-02-2010 [facility] PAIN RIGHT REGIONAL UPPER MEDICAL QUADRANT 47837 ACUTE 03-22-2010 [facility] GASTRITIS EMERGENCY WITHOUT SERVICES MENTION OF HEMORRHAGE 53894 UNS 03-22-2010 [facility] GASTRITIS&G REGIONAL ASTRODUODIT MEDICAL IS W/O MENTION HEMORR 81300 VOMITING 03-22-2010 [facility] ALONE REGIONAL MEDICAL 1105 DERMATOPHYT 12-24-2009 NANDINI AUD OSIS OF THE BODY 77007 OBESITY, 12-24-2009 NANDINI AUD UNSPECIFIED 64286 OTHER 12-24-2009 NANDINI AUD MALAISE AND FATIGUE [...] 11-25-2009 [facility] SOFT [place] TISSUES OF LIMB 18239 ABDOMINAL 11-25-2009 [facility] LOWER QUADRANT 20356 OTHER 11-25-2009 [facility] 8419 SPRAIN&STRA 09-15-2009 [facility] IN EMERGENCY UNSPECIFIED SERVICES SITE ASSOCIATES [place] [address] CONTUSION 09-15-2009 [facility] ASSOCIATES 9593 INJURY 09-15-2009 [facility] OTHER&UNSPE MEDICAL CIFIED IMAGING [facility] FOREARM&WRI ST E8809 ACCIDENTAL 09-15-2009 [facility] FALL ON OR EMERGENCY FROM OTHER SERVICES STAIRS OR ASSOCIATES STEPS 63056 THYROTOX 08-28-2009 [facility] W/O [place] [facility] GOITER/OTH CAUSE W/O CRISIS 1104 DERMATOPHYT 07-27-2009 MERCEDEZ, OSIS OF YAHIR Lopez FOOT 46798 MORBID 07-27-2009 MERCEDEZ, OBESITY [place] 7831 ABNORMAL 07-24-2009 MERCEDEZ, WEIGHT GAIN YAHIR Lopez 3804 IMPACTED 07-17-2009 [facility] CERUMEN [place] 6260 ABSENCE OF 03-21-2009 [facility] 69854 MILD 02-19-2009 [facility] DYSPLASIA PRIMARY OF [facility]ENTER[facility] 6253 DYSMENORRHE 02-19-2009 [facility]OD A PRIMARY CARE CENTERINC V2502 GENERAL 02-19-2009 [facility] CNSL PRIMARY INITIATION CARE OT CENTERINC CONTRACEPT MEASURES 7881 DYSURIA 02-05-2009 [facility]OD [facility]ARE CENTERINC 85804 PAP SMER 12-25-2008 [facility] CERV [place] INC W/ATYPICAL SQUAMOUS CELLS UNDET 18254 ACUTE 11-05-2008 NANDINI, DYSTONIA YOMI DUE TO DRUGS 7231 CERVICALGIA 11-03-2008 [facility] BLOOD AMB SERVICE 77100 INJURY OF 11-03-2008 [facility] FACE AND AMB SERVICE NECK OTHER AND UNSPECIFIED 6268 OTH D/O 09-25-2008 [facility] B[facility]OD MENSTRUATIO PRIMARY N&OTH ABN CARE BLEED FE CENTERINC GNT TRACT 2113 BENIGN 02-21-2008 [place] NEOPLASM OF TRACE COLON GASTROENTER OLOGY 5693 HEMORRHAGE 02-21-2008 [place] OF RECTUM TRACE AND ANUS GASTROENTER OLOGY 5699 UNSPECIFIED 02-21-2008 [facility] DISORDER [place] INC OF INTESTINE 5781 BLOOD IN 01-25-2008 [facility] STOOL PRIMARY CARE CENTERINC 27649 C/S DELIV 01-25-2008 [facility] W/O INDICAT PRIMARY DELIV W/WO CARE ANTPRTM CENTERINC COND V242 ROUTINE 01-25-2008 [facility] BLOOD PRIMARY FOLLOW-UP CARE CENTERINC V252 STERILIZATI 01-25-2008 [facility] BLOOD ON PRIMARY CARE CENTERINC 12384 BREECH 12-13-2007 [facility] XTRAC W/O PRIMARY INDICAT CARE DELIV W/WO CENTERINC ANTPRTM COND V270 OUTCOME OF 12-13-2007 [facility] DELIVERY PRIMARY SINGLE CARE LIVEBORN CENTERINC 68787 BREECH 12-11-2007 [facility] PRESENTATIO H N W/O ANESTHESIA MENTION PSC VERSION DELIV 71242 OTH SPEC 12-11-2007 [facility] &PLACN REGIONAL TL PROBS MEDICAL MGMT [facility] C[facility] DELIV 40847 PREVIOUS 12-07-2007 [facility] C-SECT REGIONAL DELIVERY MEDICAL ANTPRTM CENTER COND/COMP 7242 LUMBAGO 12-07-2007 [facility] CO PRIMARY CARE CENTERINC V221 SUPERVISION 12-07-2007 [facility] CO OF OTHER PRIMARY NORMAL CARE CENTERINC V2389 SUPERVISION 12-07-2007 [facility] CO OF OTHER PRIMARY HIGH-RISK CARE CENTERINC V7242 11-14-2007 [facility] EXAMINATION PRIMARY OR TEST CARE POSITIVE CENTERINC RESULT 08034 UNS 07-26-2007 [facility] ABNORM MGMT PRIMARY MOTH CARE ANTPR CENTERINC COND/COMP 46185 OTH CURRENT 07-11-2007 [facility]/CO MATERNAL HEALTH CCE-COMPL [...] 02 03 3. 3 00 GE Ac HI 05 -1 -2 00 00 OR ti EN 40 7- 4- 0 04 GE ve OR 18 20 20 01 TO PH 91 17 17 67 WN IN 3 59 -N AP AL OT OX HE ON CA RY 8- 2 MG SL BU 00 02 03 4. 4 00 GE Ac HI 05 -1 -1 00 00 OR ti EN 40 3- 7- 0 04 GE ve OR 18 20 20 01 TO PH 91 17 17 66 WN IN 3 30 -N AP AL OT OX HE ON CA RY 8- 2 MG SL BU 00 02 03 5. 5 00 GE Ac HI 05 -0 -1 00 00 OR ti EN 40 8- 0- 0 04 GE ve OR 18 20 20 01 TO PH 91 17 17 64 WN IN 3 75 -N AP AL OT OX HE ON CA RY 8- 2 MG SL BU 00 01 03 4. 4 00 GE Ac HI 05 -3 -0 00 00 OR ti EN 40 0- 3- 0 04 GE ve OR 18 20 20 01 TO PH 91 17 17 62 WN IN 3 01 -N AP AL OT OX HE ON CA RY 8- 2 MG SL BU 00 01 02 5. 5 00 GE Ac HI 05 -2 -2 00 00 OR ti [...] 2 30 15 KR 62 SP Ac HI 74 -1 -1 .0 OG 12 EN [...] 7- 7- [address] ve HI 28 20 20 6 AC AM 25 [...] 1- 1- 00 ER 71 CE ve HI 28 20 20 2 R AM 25 [...] R ZA 10 11 11 PH AU HI [address] IN MA EY E CY 5 # MG 14 TA 42 BL 0 ET CI 68 05 05 2 15 30 KR 61 SP Ac TA 64 -2 -2 .0 OG 99 EN ti LO 50 0- 0- 00 ER 40 CE ve HI 28 20 20 7 R AM 25 [...] 9- 9- 00 ER 67 CE ve HI 28 20 20 9 R AM 25 11 11 PH AU [address] HB MA EY R CY 40 # MG 14 42 TA 0 BL ET CI 55 02 02 0 10 5 KR 61 PO Ac HI 11 -2 -2 .0 OG 85 RN [...] AU IN [address] Jose Roberto MCLAEN EY 75 CY # MC G 14 [...] CA 14 PS 42 UL 0 E HI 68 11 11 0 8. 2 KR [...] 08 09 11 28 28 KR 61 HI Ac RI 55 -1 -1 .0 OG 55 AD ti NT 59 7- 2- 00 ER 59 FUNEZ ve EC 01 20 20 7 N 65 10 10 PH SO 28 8 AR MA MA DA CY Y # TA BL 14 ET 42 0 DO 53 08 08 0 14 7 KR 61 HI Ac XY 48 -1 -1 .0 OG 55 AD ti CY 90 7- 7- 00 ER 59 FUNEZ ve CL 12 20 20 8 N IN 00 10 10 PH SO E 2 AR MA HY MA CL CY AT # E 10 14 0 42 MG 0 TA B SP 00 08 08 11 28 28 KR 61 HI Ac RI 55 -1 -1 .0 OG [...] 0 20 10 KR 61 No Ac HI 09 -2 -2 .0 OG 52 t [...] 20 20 0 70 10 10 PH MT 1 AR CH MA AE CY L [...] -0 -2 .0 OG 49 t ti HI 90 8- 3- 00 ER 96 Av [...] 00 14 7 KR 60 No Ac HI 11 -2 -1 .0 OG 43 t [...] Procedure DOS Code Location Performer Comment RADIOLOGI 76900 [facility] C EXAM 6 HONG CHEST 2 RADIOLOGY VIEWS ASSOCI[place] [address] [facility] THYROXINE 5 [facility] TOTAL INC INC BLOOD 71063 [facility], PICKLESIM SMEAR 5 LLC ER JR BIBIANA PERIPHERA L INTERP PHYS W/WRIT REPORT 25 [id number] [facility] HYDROXY 5 [facility] INCLUDES INC INC FRACTIONS IF PERFORMED BLOOD 73851 [facility] COUNT 5 [facility] COMPLETE INC INC AUTO&[place] [address] [facility] THYROID 5 [facility] STIMULATI INC INC NG HORMONE TSH COMPREHEN 29563 [facility] SIVE 5 [facility] [place] [address] [facility] ABDOMEN & 5 MEDICAL HENNA PELVIS IMAGING W/O ASS CONTRAST MATERIAL ANES 33323 [facility] GUERLINE NON-INVAS 5 LTH HONG BRUNILDA ANESTHESI IMAGING/R A PSC ADIATION THERAPY ECHO 65786 [facility] TRANSESOP 5 W W HAG R-T REGIONAL REGIONAL 2D W/PRB MEDICAL MEDICAL IMG ACQUISJ I&R RINGERS J7120 [facility] LACTATE 5 W W INFUSION REGIONAL REGIONAL UP TO MEDICAL MEDICAL 1000 CC ECG 43665 CLAIRE RANGEL ROUTINE 5 N RAG N RAG ECG W/LEAST 12 LDS W/I&R INITIAL 27732 [facility] 5 W GENERAL CARE/DAY SURGERY 30 MINUTES ECHO 86842 CLAIRE RANGEL TTHRC R-T 5 N RAG N RAG 2D W/WOM-MOD E COMPL SPEC&COLR D DUP-SCAN 81141 [facility] XTR VEINS 5 K[facility] ASSOCIAT L/LIMITED STUDY CATHETER C1758 [facility] URETERAL 4 W W [facility] [place] [address] [facility] SURG 4 W W PATHOLOGY [facility] GROSS&[place] [address] [facility] SURG 4 W W PATHOLOGY [facility] MEDICAL GROSS&SIMI ROSCOPIC EXAM ANESTHESI 45582 [facility] TIAN FRANCO A VAGINAL 4 LTH ANESTHESI PROCEDURE A PSC W/BIOPSY NOS CONIZATIO 78766 SU JASMIN SU JASMIN N CERVIX 4 W/WO D&C RPR ELTRD EXC GONADOTRO 04377 CHRISTEN VELÁSQUEZ PIN 4 W W CHORIONIC [facility] MEDICAL MEDICAL QUALITATI VE BLOOD 30160 CHRISTEN VELÁSQUEZ COUNT 4 W W COMPLETE [facility] AUTO&AUTO MEDICAL MEDICAL DIFRNTL WBC COLLECTIO 54531 CHRISTEN VELÁSQUEZ N VENOUS 4 W W BLOOD [facility] VENIPUNCT MEDICAL MEDICAL URE URNLS DIP 66711 CHRISTEN MCGUIREWVIE 4 W W STICK/TAB [facility] LET MEDICAL MEDICAL REAGENT AUTO MICROSCOP Y POTASSIUM 85149 CHRISTEN VELÁSQUEZ SERUM 4 W W PLASMA/WH [facility] OLE BLOOD MEDICAL MEDICAL RADEX 30209 [facility] [place] ABDOMEN 4 HONG HONG COMPL W/DCBTS&/ ERC VIEWS REPAIR 67817 SPADY KELIN SPADY KELIN FIRST 4 ABDOMINAL WALL HERNIA IMPLANT 30230 SPADY KELIN SPADY KELIN MESH OPN 4 HERNIA RPR/[place] [address] LABORATOR LABORATOR SURG 4 Y Y PATHOLOGY CORPORATI CORPORATI ON OF AM ON OF AM GROSS&SIMI ROSCOPIC EXAM COLPOSCOP 35211 DARA DARA Y CERVIX 4 MARLEE MARLEE BX CERVIX & ENDOCRV CURRETAGE IADNA 27090 LABORATOR LABORATOR NEISSERIA 4 Y BILLY OF Y BILLY OF SANDRA SANDRA GONORRHOE H H AE AMPLIFIED PROBE TQ IADNA 11107 LABORATOR LABORATOR CHLAMYDIA 4 Y BILLY OF Y BILLY OF SANDRA SANDRA TRACHOMAT H H IS AMPLIFIED PROBE TQ CYTP 17584 LABORATOR LABORATOR CERVICAL/ 4 Y BILLY OF Y BILLY OF VAGINAL SANDRA SANDRA REQ H H INTERP PHYSICIAN CYTP C/V 51436 LABORATOR LABORATOR AUTO THIN 4 Y BILLY OF Y BILLY OF LYR SANDRA SANDRA PREPJ SCR H H MNL RESCR PHYS IADNA 11296 LABORATOR LABORATOR PAPILLOMA 4 Y BILLY OF Y BILLY OF VIRUS SANDRA SANDRA HUMAN H H AMPLIFIED PROBE TQ LOCM Q99[address] [facility] [address] [phone] 4 JOHN JOHN MG/ML IODINE PHYSICIAN PHYSICIAN [place] [address] [facility] ABDOMEN & 4 JOHN LOPEZ PELVIS W/CONTRAS PHYSICIAN PHYSICIAN T S August MATERIAL URINE 40741 KENAN GRAYSON 4 CO CO TEST [facility] VISUAL DEPARTME [place] [address] [place] [place] ABDOMINAL [facility] REAL TIME W/IMAGE LIMITED RADEX ABD 67356 [place] COMPL [address] [facility] AQT ABD W/S/E/D VIEWS 1 VIEW BLOOD 56307 [facility] COUNT 4 W W COMPLETE REGIONAL REGIONAL AUTO&AUTO MEDICAL MEDICAL DIFRNTL WBC COMPREHEN 58255 [facility] SIVE 4 W W METABOLIC REGIONAL REGIONAL PANEL MEDICAL MEDICAL COLLECTIO 24572 [facility] MCGUIREWVIE N VENOUS 4 W W BLOOD REGIONAL REGIONAL VENIPUNCT MEDICAL MEDICAL URE CULTURE 80756 [facility] MEAWVIE BACTERIAL 4 W W REGIONAL REGIONAL QUANTTATI MEDICAL MEDICAL VE COLONY COUNT URINE URNLS DIP 32131 [facility]ADOW[facility]IE 4 W W STICK/TAB REGIONAL REGIONAL LET MEDICAL MEDICAL REAGENT AUTO MICROSCOP Y INJECTION J3301 CHRISTEN [place] 4 W GENERAL III PAO TRIAMCINO SURGERY LONE ACETONIDE NOS 10 MG ARTHROCEN 98724 MERLINEDESTINEYTAVIA GORGE TESIS 4 W GENERAL III PAO ASPIR&/IN SURGERY J MAJOR JT/BURSA W/O US MRI ANY 96639 MEANEEL VELÁSQUEZ JT LOWER 4 W W EXTREM REGIONAL REGIONAL W/O MEDICAL MEDICAL CONTRAST MATRL COLLECTIO 62734 NANDINI NANDINI N VENOUS 4 AUD AUD BLOOD VENIPUNCT URE RADIOLOGI 67966 [facility] EXAM 4 JOHN LOPEZ KNEE COMPLETE PHYSICIAN PHYSICIAN 4/MORE S August VIEWS IM ADM 84381 NANDINI NANDINI PRQ ID 3 AUD AUD SUBQ/IM NJXS 1 [place] [address] [facility] THYROID 3 DIAGNOSTI DIAGNOSTI STIMULATI CS CS NG HORMONE TSH COMPREHEN 30833 [facility] SIVE 3 DIAGNOSTI DIAGNOSTI METABOLIC CS CS PANEL PHYSICAL 91862 KPI KPI THERAPY 3 THERAPY, THERAPY, EVALUATIO INC. INC. N RADEX [address] SPINE 3 JOHN JOHN THORACIC 3 VIEWS PHYSICIAN PHYSICIAN S AUGUST S AUGUST NFCT AGNT 81268 [facility] GENOTYP 3 Y Y NUCLEIC [facility] ACID HEPATITIS C VIRUS COLLECTIO 98517 [facility] VENOUS 3 Y Y BLOOD [facility] VENIPUNCT URE HEPATITIS 51651 [facility] C 3 Y Y ANTIBODY [facility] HEPATITIS 01499 [facility] A 3 Y Y ANTIBODY [facility] HAAB IADNA 62054 [facility] HEPATITIS 3 Y Y C [facility] [place] [address] [facility] ABDOMINAL 3 EIDER LINDSEY REAL RADIOLOGY TIME ASSOCIAT W/IMAGE LIMITED NFCT AGNT 78750 [facility] MED GENOTYP 3 LABORATOR LABORATOR NUCLEIC IES IES ACID HEPATITIS C VIRUS IADNA 99075 VIRO MED VIRO MED HEPATITIS 3 LABORATOR LABORATOR C IES IES AMPLIFIED PROBE&REV RSE TRANSCR DETERMINA 23352 [facility] AWOSIKA TION 3 BRANDEN BRANDEN REFRACTIV E STATE VISUAL 61250 [facility] AWOSIKA FIELD XM 3 BRANDEN BRANDEN UNI/BI W/INTERP INTERMED EXAM URNLS DIP 81454 [facility] STICK/TAB INC INC LET REAGENT AUTO MICROSCOP Y INSJ 56135 [facility] NON-NDWEL 2 [facility] LG INC INC BLADDER CATHETER CULTURE 03701 [facility] BACTERIAL 2 [facility] INC INC QUANTTATI VE COLONY COUNT URINE CULTURE 26406 [facility]Y BACTERIAL 2 AMERIC [employer] HOLDING HOLDING QUANTTATI VE COLONY COUNT URINE CULTURE 18136 [facility] LAB BILLY BCT 2 AMERIC AMERIC ISOL&PRSM HOLDING HOLDING PTV ID ISOLATE EA URINE SUSCEPTIB 96968 [facility] LAB BILLY LTY STDY 2 AMERIC AMERIC ANTIMICRB HOLDING HOLDING IAL MICRO/[place] [address] [facility] B[facility]Y THYROID 2 AMERIC AMERIC STIMULATI [place] [address] [facility] LAB BILLY FREE 2 AMERIC AMERIC THYROXINE HOLDING HOLDING URINE 82453 KENAN GRAYSON 2 CO CO TEST [facility] VISUAL DEPARTME DEPARTME COLOR CMPRSN METHS URINLS 62950 NANDINI NANDINI DIP 1 AUD AUD STICK/TAB LET REAGNT NON-AUTO MICRSCPY BLOOD 67726 LAB [facility] LAB BILLY COUNT 1 AMERIC AMERIC COMPLETE HOLDING HOLDING AUTO&AUTO DIFRNTL WBC BLOOD 60056 LAB [facility] LAB BILLY COUNT 1 AMERIC AMER[employer] COMPLETE HOLDING HOLDING AUTO&[place] [address] LAB [facility] LAB BILLY THYROID 1 AMERIC AMERIC STIMULATI HOLDING HOLDING NG HORMONE TSH ANES 24572 [facility] INTRAPERI 1 LTH ANT TONEAL ANESTHESI UPPER A PSC ABDOMEN W/LAPS NOS LAPAROSCO 13573 MEANEEL MANSHIP PY SURG 1 W GENERAL LAW CHOLECYST SURGERY ECTOMY LEVEL III 58710 AMERIPATH HARLAMERT SURG 1 [place] INC HEN PATHOLOGY GROSS&SIMI ROSCOPIC EXAM UNLISTED 40831 MEADOWVIE MEADOWVIE PX FEMALE 1 W W [facility] MEDICAL MEDICAL NONOBSTET RICAL URINE 84952 MEADOWVIE MEADOWVIE 1 W W TEST REGIONAL REGIONAL VISUAL MEDICAL MEDICAL COLOR CMPRSN METHS RADIOLOGI 28053 [place] C EXAM 1 HONG CHEST 2 RADIOLOGY VIEWS ASSOCIAT FRONTAL&L ATERAL HEPATBL 89835 [facility] DUX SYS 0 KEL[place] [address] [place] ABDOMINAL 0 KELIN REAL RADIOLOGY TIME ASSOCIAT W/IMAGE LIMITED BLOOD 70729 MEADOWVIE MEADOWVIE COUNT 0 W W COMPLETE REGIONAL REGIONAL AUTO&AUTO MEDICAL MEDICAL DIFRNTL WBC COMPREHEN 33147 MEADOWVIE MEADOWVIE SIVE 0 W W METABOLIC REGIONAL REGIONAL PANEL MEDICAL MEDICAL COLLECTIO 20962 [place] MEAWVIE N VENOUS 0 W W BLOOD [facility] VENIPUNCT MEDICAL MEDICAL URE URNLS DIP 31121 MEA[place] MEADOWVIE 0 W W STICK/TAB [facility] LET MEDICAL MEDICAL [place] [address] [place] MEAWT[place] AMYLASE 0 W W [facility] [place] [address] MEAWT[place] MEADOWVIE LIPASE 0 W W [facility] MEDICAL MEDICAL URINE 01943 CHRISTEN MCGUIREWTAVIA 0 W W TEST [facility] VISUAL MEDICAL MEDICAL COLOR CMPRSN METHS HGB 58606 NANDINI NANDINI GLYCOSYLA 0 AUD AUD SCOT DEVICE CLEARED FDA HOME USE GENERAL 35180 LAB B[facility]Y LAB BILLY HEALTH 0 AMERIC [place] [address] LAB BILLY LAB BILLY FREE 0 AMERIC [place] [address] [facility] TRANSVAGI 0 [place] [address] [facility]IVERS TRANSVAGI [address] [place] [address] SILVESTRE RIVERS ABDOMEN 0 CO CO W/O & HOSPITAL HOSPITAL W/CONTRAS T MATERIAL CT PELVIS 29673 RIVERSWONG RIVERS 0 CO CO [facility] T MATERIAL BLOOD 76826 RIVERS SILVESTRE COUNT 0 CO CO [facility] AUTO&AUTO DIFRNTL WBC GONADOTRO 07965 [place] RIVERS PIN 0 CO CO [facility] QUALITATI VE COLLECTIO 30285 SILVESTRE RIVERS N VENOUS 0 CO MS BLOOD [facility] VENIPUNCT URE COMPREHEN 25024 RIVERSWONG RIVERS SIVE 0 CO [facility] PANEL RADEX 93376 POLLY MATIAS ELBOW 0 [facility] COMPLETE INC INC MINIMUM 3 [place] [address] [facility] THYROID 0 [facility] INC STIMULATI NG HORMONE TSH LIPID 91413 [facility] PANEL 0 [facility] INC COLLECTIO 46423 MERCEDEZ NEWSOME N VENOUS 0 , CAMILLA , CAMILLA BLOOD VENIPUNCT URE GENERAL 68654 [facility] HEALTH 0 [facility] INC PANEL REMOVAL 10913 MERCEDEZ NEWSOME IMPACTED 0 , CAMILLA , CAMILLA CERUMEN INSTRUMEN TATION UNILAT COLLECTIO 17355 MEADOWVIE MEADOWVIE N VENOUS 9 W W BLOOD [facility] VENIPUNCT [facility] MEDICAL URE CENTER CENTER GONADOTRO 64741 MEADOWVIE MEADOWVIE PIN 9 W W [facility] QUANTITAT CENTER CENTER BRUNILDA URNLS DIP 24340 JAMES PEREYRA, 9 PRIMARY BRIDGETTE P STICK/TAB CARE LET RGNT CENTERINC AUTO W/O MICROSCOP Y URNLS DIP 21921 JAMES PEREYRA, PRIMARY BRIDGETTE P STICK/TAB CARE LET CENTERINC REAGENT AUTO MICROSCOP Y IADNA 09432 [facility] [place] 9 [facility] GONORRHOE AE AMPLIFIED PROBE TQ IADNA 43814 [facility] PAPILLOMA 9 [facility] VIRUS HUMAN AMPLIFIED PROBE TQ IADNA 70731 [facility] CHLAMYDIA 9 [facility] TRACHOMAT IS AMPLIFIED PROBE TQ GROUND [id number] [facility] MILEAGE 9 CO AMB CO AMB PER SERVICE SERVICE STATUTE MILE AMBULANCE [id number] [facility] SERVICE 9 CO AMB CO AMB BLS SERVICE [place] [address] [facility] [place], SURG 8 [place] INC [place] D PATHOLOGY GROSS&SIMI ROSCOPIC EXAM COLSC FLX 97503 MEADOWVIE MEADOWVIE W/RMVL 8 W W OF TUMOR [facility] POLYP [facility] MEDICAL LESION CENTER CENTER SNARE TQ POSTPARTU 17080 John [facility] 8 PRIMARY MARQUIS R ONLY CARE SEPARATE CENTERINC PROCEDURE CULTURE 87638 MEADOWVIE MEADOWVIE BACTERIAL 8 W W [facility] CENTER COUNT URINE URNLS DIP 28243 MEADOWVIE MEADOWVIE 8 W W STICK/TAB [facility] LET MEDICAL MEDICAL REAGENT CENTER CENTER AUTO MICROSCOP Y HOSPITAL 16892 JAMES [facility], DISCHARGE 8 PRIMARY ALIN A DAY CARE MANAGEMEN CENTERINC T 30 MIN/< SBSQ 05520 [facility] 8 PRIMARY ALIN A CARE/DAY CARE 15 CENTERINC MINUTES ANES 35250 [facility] JOSE, CESARN 8 LTH ASPEN N DLVR FLWG ANESTHESI A PSC NEURAXIAL LABOR ANALG/ANE S 48337 [facility] LJ, DELIVERY 8 PRIMARY MARQUIS R ONLY CARE CENTERINC ANESTHESI 16117 [facility] JOSE, A 8 LTH ASPEN N ANESTHESI DELIVERY A PSC ONLY OTH 6639 MEADOWVIE MEADOWVIE BILATERAL 8 W W [facility] DESTRUC/O MEDICAL MEDICAL CCLUSION CENTER CENTER FALLOPIAN TUBES LOW 741 MEADOWVIE MEADOWVIE CERVICAL 8 W W [facility] SECTION MEDICAL MEDICAL CENTER CENTER CULTURE 87428 MEADOWVIE MEADOWVIE BACTERIAL 8 W W [facility] QUANTTATI MEDICAL MEDICAL VE COLONY CENTER CENTER COUNT URINE URNLS DIP 19680 MEADOWVIE MEADOWVIE 8 W W STICK/TAB [facility] LET MEDICAL MEDICAL REAGENT CENTER CENTER AUTO MICROSCOP Y POTASSIUM 21336 MEADOWVIE MEADOWVIE SERUM 8 W W PLASMA/WH [facility] BLOOD MEDICAL MEDICAL CENTER CENTER COLLECTIO 33920 MEADOWVIE MEADOWVIE N VENOUS 8 W W BLOOD [facility] VENIPUNCT MEDICAL MEDICAL URE CENTER CENTER URNLS DIP 94339 JAMES PEREYRA, Telma PRIMARY BRIDGETTE P STICK/TAB CARE LET RGNT CENTERINC NON-AUTO W/O MICRSCP BLOOD 30456 MEADOWVIE MEADOWVIE COUNT 8 W W COMPLETE [facility] AUTO&AUTO MEDICAL MEDICAL DIFRNTL CENTER CENTER WBC URNLS DIP 01897 JAMES PEREYRA, 8 PRIMARY BRIDGETTE P STICK/TAB CARE LET RGNT CENTERINC NON-AUTO W/O MICRSCP URNLS DIP 67170 JAMES HERRERA, 8 PRIMARY ANDRZEJ J STICK/TAB CARE LET RGNT CENTERINC NON-AUTO W/O MICRSCP CUL 63160 CHRISTEN VELÁSQUEZ PRSMPTV 8 W W [facility] S[facility] CENTER W/COLONY ESTIMJ URNLS DIP 53626 JAMES CALHOUN, 8 PRIMARY MARQUIS R STICK/TAB CARE LET RGNT CENTERINC NON-AUTO W/O MICRSCP URNLS DIP 22541 JAMES PEREYRA, 8 PRIMARY BRIDGETTE P STICK/TAB CARE LET RGNT CENTERINC NON-AUTO W/O MICRSCP COLLECTIO 32679 JAMES PEREYRA, N VENOUS 8 PRIMARY BRIDGETTE P BLOOD CARE VENIPUNCT CENTERINC URE BLOOD 75746 JAMES PEREYRA, COUNT 8 PRIMARY BRIDGETTE P HEMOGLOBI CARE N CENTERINC URNLS DIP 98587 JAMES CALHOUN, 8 PRIMARY MARQUIS R STICK/TAB CARE LET RGNT CENTERINC NON-AUTO W/O MICRSCP URNLS DIP 24623 JAMES BLUE, 8 PRIMARY DEANDRE W STICK/TAB CARE LET RGNT CENTERINC NON-AUTO W/O MICRSCP URNLS DIP 98328 JAMES HERRERA, 8 PRIMARY ANDRZEJ J STICK/TAB CARE LET RGNT CENTERINC NON-AUTO W/O MICRSCP COLLECTIO 35057 JAMES HERRERA, N VENOUS 8 PRIMARY ANDRZEJ J BLOOD CARE [place] [address] [facility] THYROID 8 [facility] [place] [address] [facility] FREE 8 [facility] THYROXINE GLUCOSE 66187 [facility] POST 8 [facility] GLUCOSE [facility] G0378 CHRISTEN VELÁSQUEZ OBSERVATI 8 W W ON [facility] PER HOUR CENTER CENTER 19301 JAMES PEREYRA, NONSTRESS 8 PRIMARY BRIDGETTE P TEST CARE CENTERINC URNLS DIP 47192 JAMES MELCHOR, 8 PRIMARY YOGESH L STICK/TAB CARE LET RGNT CENTERINC NON-AUTO W/[place] [address] [facility] FREE 8 [facility] [place] [address] [facility] THYROID 8 [facility] STIMULATI [place]ORM[place] PREG 30636 JAMES BLOOD LJ, UTERUS 8 PRIMARY MARQUIS R W/DETAIL CARE CENTERINC MITA 1ST GESTATION URNLS DIP 53993 JAMES CALHOUN, 8 PRIMARY MARQUIS R STICK/TAB CARE LET RGNT CENTERINC NON-AUTO W/O MICRSCP MEDICAL 86055 DHS/CO [facility] NUTRITION 8 [facility]ALTH [facility] ASSMT&IVN BANK ACCT DEPARTMEN TJ INDIV T EACH 15 MT URNLS DIP 96950 JAMES ROSEN, 8 PRIMARY CLARITZA E STICK/TAB CARE LET RGNT CENTERINC NON-AUTO W/O MICRSCP IADNA 27833 [facility] [place] 8 DIAGNOSTI DIAGNOSTI CS IN CS IN GONORRHO[place] [address] [facility] FREE 8 [facility] THYROXINE IADNA 74232 [facility] CHLAMYDIA 8 DIAGNOSTI DIAGNOSTI CS IN CS IN TRACHOMAT IS AMPLIFIED PROBE TQ CYTP C/V 25323 [facility] AUTO THIN 8 DIAGNOSTI DIAGNOSTI LYR CS IN CS IN PREPJ SCR MNL RESCR PHYS URNLS DIP 99182 JAMES DIAMOND, 8 PRIMARY ALIN A STICK/TAB CARE LET RGNT CENTERINC NON-AUTO W/O MICRSCP US PREG 13799 JAMES HERRERA, UTERUS 8 PRIMARY ANDRZEJ J REAL TIME CARE W/IMAGE CENTERINC DCMTN TRANSVAG URNLS DIP 53870 JAMES HERRERA, 8 PRIMARY ANDRZEJ J STICK/TAB CARE LET RGNT CENTERINC NON-AUTO W/O MICRSCP URNLS DIP 99729 JAMES PEREYRA, 8 PRIMARY BRIDGETTE P STICK/TAB CARE LET RGNT CENTERINC NON-AUTO W/O MICRSCP COLLECTIO 09635 JAMES PEREYRA, N VENOUS 8 PRIMARY BRIDGETTE P BLOOD CARE VENIPUNCT CENTERINC URE Encounters Encounter Start End Date Code Location Performer Type Date [facility] DEPARTMEN EMERGENCY T VISIT PHYS HIGH/URGE NT SEVERITY [facility] 93886 JAMES BLOOD ALLY CHRISTEN OUTPATIEN 5 5 PRIMARY T VISIT CARE 15 CENTER MINUTES EMERGENCY 94539 GELY WOODRUFF DEPT 5 5 PHYSICIAN SIMI VISIT S, PLLC HIGH SEVERITY& THREAT [facility] - 5 5 [facility] 89943 CLAIRE CLAIRE OUTPATIEN 5 5 N RAG N RAG T NEW 45 MINUTES EMERGENCY 25333 [facility] LJ DEPT 5 5 [facility] VISIT EMERGENCY HIGH PHYS SEVERITY& THREAT FUN EMERGENCY 42562 [facility] 4 4 R[facility] DEPARTMEN EMERGENCY T VISIT PHYS MODERATE SEVERITY [facility]OSPITAL [facility] - 4 4 [facility] MEDICAL [facility] 91037 JAMES FLOWERSY JASMIN OUTPATIEN 4 4 PRIMARY T VISIT CARE 15 CENTER MINUTES EMERGENCY 39285 [facility] 4 4 DEPARTMEN T VISIT HIGH/URGE NT SEVERITY [facility]OSPITAL [facility] - 4 4 [facility] 31606 JAMES FLOWERSY JASMIN OUTPATIEN 4 4 PRIMARY T VISIT CARE 40 CENTER MINUTES EMERGENCY 39053 FAUSTO LAMBERT DEPT 4 4 ORA ORA VISIT HIGH SEVERITY& THREAT [facility] OFFICE 59458 KENAN GRAYSON OUTPATIEN 4 4 CO CO T VISIT HEALTH HEALTH 10 DEPARTME DEPARTME MINUTES EMERGENCY 95972 [facility] LAMBERT 4 4 ORA ORA DEPARTMEN T VISIT MODERATE SEVERITY [facility] 62056 [facility] OUTPATIEN 4 4 W GENERAL III PAO T VISIT SURGERY 15 MINUTES HOSPITAL SHAYLAWVIE - 4 4 W OUTPATI REGIONAL T MEDICAL OFFICE 48798 GORGE [place] OUTPATIEN 4 4 III PAO III PAO T NEW 30 MINUTES OFFICE 45072 NANDINI NANDINI OUTPATIEN 4 4 AUD AUD T VISIT 15 MINUTES OFFICE 52918 NANDINI NANDINI OUTPATIEN 3 3 AUD AUD T VISIT 25 MINUTES EMERGENCY 78589 ECTOR CABRERA 3 3 EMERGENCY DEPARTMEN SERVICES T VISIT MODERATE SEVERITY HOSPITAL UNIVERSIT - 3 3 Y [facility] T OFFICE 70155 [place] DIEGO ANDREE OUTPATIEN 3 3 MEDICAL T NEW 60 SERV MINUTES FOUNDATIO OFFICE 79604 NANDINI NANDINI OUTPATIEN 3 3 AUD AUD T VISIT 10 MINUTES OFFICE 65191 AWOSIKA AWOSIKA OUTPATIEN 3 3 BRANDEN BRANDEN T NEW 30 MINUTES EMERGENCY 78498 PO[facility] 2 2 [facility] DEPARTMEN INC T VISIT MODERATE SEVERITY EMERGENCY 93719 ECTOR 2 2 EMERGENCY DEPARTMEN SERVICES T VISIT HIGH/URGE NT SEVERITY HOSPITAL POLLY - 2 2 [facility] OUTPATIEN INC T OFFICE 17409 KENAN GRAYSON OUTPATIEN 2 2 CO CO T VISIT HEALTH HEALTH 10 DEPARTME DEPARTME MINUTES OFFICE 29154 NANDINI NANDINI OUTPATIEN 1 1 AUD AUD T VISIT 25 MINUTES EMERGENCY 70190 ECTOR ROPER 1 1 EMERGENCY CHR DEPARTMEN SERVICES T VISIT HIGH/URGE NT SEVERITY OFFICE 22774 NANDINI NANDINI OUTPATIEN 1 1 AUD AUD T VISIT 25 MINUTES OFFICE 72903 NANDINI NANDINI OUTPATIEN 1 1 AUD AUD T VISIT 25 MINUTES EMERGENCY 14855 ECTOR SCHMIDTRUFINO CABRERA 1 1 EMERGENCY DEPARTMEN SERVICES T VISIT HIGH/URGE NT SEVERITY EMERGENCY 35758 ECTOR ROPER 1 1 EMERGENCY CHR DEPARTMEN SERVICES T VISIT HIGH/URGE NT SEVERITY OFFICE 60696 NANDINI NANDINI OUTPATIEN 1 1 AUD AUD T VISIT 25 MINUTES HOSPITAL CHRISTEN - 1 1 W [facility] LORRIEVIE - 0 0 W [facility] MEDICAL OFFICE 51791 NANDINI NANDINI OUTPATIEN 0 0 AUD AUD T VISIT 25 MINUTES EMERGENCY 02048 SHAYLAWVIE 0 0 W DEPARTMEN REGIONAL T VISIT MEDICAL HIGH/URGE NT SEVERITY EMERGENCY 92094 ECTOR CABRERA DEPT 0 0 EMERGENCY VISIT SERVICES HIGH SEVERITY& THREAT [facility] LORRIEVIE - 0 0 W [facility] MEDICAL OFFICE 17781 NANDINI NANDINI OUTPATIEN 0 0 AUD AUD T VISIT 25 MINUTES OFFICE 37903 JAMES LATHAM OUTPATIEN 0 0 PRIMARY BERTA T VISIT CARE 25 CENTER MINUTES OFFICE 74677 JAMES CO LJ, OUTPATIEN 0 0 PRIMARY MARQUIS R T V[facility] 54779 RINALDINI RINALDINI OUTPATIEN 0 0 , CAMILLA , CAMILLA T VISIT 15 MINUTES HOSPITAL POLLY - 0 0 [facility] OUTPATIEN INC T EMERGENCY 15054 ECTOR RANJAN, 0 0 EMERGENCY [facility] DEPARTMEN SERVICES T VISIT HIGH/URGE ASSOCIATE NT S SEVERITY EMERGENCY 69347 POLLY 0 0 [facility] DEPARTMEN INC T VISIT LOW/MODER SEVERITY OFFICE 00962 RINALDINI RINALDINI OUTPATIEN 0 0 , CAMILLA , CAMILLA T VISIT 15 MINUTES OFFICE 62473 RINALDINI RINALDINI OUTPATIEN 0 0 , CAMILLA , CAMILLA T VISIT 15 MINUTES OFFICE 19387 RINALDINI RINALDINI OUTPATIEN 0 0 , CAMILLA , CAMILLA T NEW 30 MINUTES HOSPITAL MEADOW - 9 9 W [facility] OFFICE 26691 PARMINDER DINERO 9 9 PRIMARY BRIAN T VISIT CARE 15 CENTERINC MINUTES OFFICE 88441 PARMINDER KARIMI 9 9 PRIMARY BRIDGETTE P T VISIT CARE 10 CENTERINC MINUTES OFFICE 85644 NANDINI DELATORRE OUTPATIEN 9 9 YOMI HAIRREY T VISIT 25 MINUTES EMERGENCY 90177 ECTOR SWANSON 9 9 EMERGENCY , [facility] DEPARTMEN SERVICES A T VISIT HIGH/URGE ASSOCIATE NT S SEVERITY OFFICE 31452 PARMINDER DINERO 9 9 PRIMARY BRIAN T VISIT CARE 25 CENTERINC MINUTES HOSPITAL MEADOW - 8 8 W [facility] OFFICE 91663 SHAY RAMOS 8 8 TRACE MARQUIS A ION GASTROENT NEW/ESTAB EROLOGY PATIENT 40 MIN HOSPITAL [facility]OW - 8 8 W [facility] MEADOW - 8 8 W INPATIENT [facility] MEADOWTAVIA - 8 8 W [facility] OFFICE 31037 JAMES PEREYRA OUTPATIEN 8 8 PRIMARY BRIDGETTE P T VISIT CARE 15 CENTERINC MINUTES OFFICE 94733 JAMES CO RODDY OUTPATIEN 8 8 PRIMARY BRIDGETTE P T VISIT CARE 15 CENTERINC MINUTES OFFICE 61436 JAMES CO LJ OUTPATIEN 8 8 PRIMARY MARQUIS R T VISIT CARE 15 CENTERINC MINUTES OFFICE 05853 JAMES HERRERA OUTPATIEN 8 8 PRIMARY ANDRZEJ J T VISIT CARE 15 CENTERINC MINUTES OFFICE 96118 JAMES CO LJ OUTPATIEN 8 8 PRIMARY MARQUIS R T VISIT CARE 15 CENTERINC MINUTES HOSPITAL CHRISTEN - 8 8 W [facility] OFFICE 36424 JAMES PEREYRA OUTPATIEN 8 8 PRIMARY BRIDGETTE P T VISIT CARE 15 CENTERINC MINUTES OFFICE 65378 JAMES CALHOUN OUTPATIDARIUS 8 8 PRIMARY MARQUIS R T VISIT CARE 15 CENTERINC MINUTES OFFICE 51897 JAMES BLUE OUTPATIDARIUS 8 8 PRIMARY DEANDRE W T VISIT CARE 15 CENTERINC MINUTES OFFICE 84464 JAMES HERRERA OUTPATIEN 8 8 PRIMARY ANDRZEJ J T VISIT CARE 15 CENTERINC MINUTES HOSPITAL CHRISTEN - 8 8 W [facility] OFFICE 74450 JAMES MELCHOR OUTPATIEN 8 8 PRIMARY YOGESH L T VISIT CARE 15 CENTERINC MINUTES OFFICE 97830 JAMES CALHOUN OUTPATIDARIUS 8 8 PRIMARY MARQUIS R T VISIT CARE 15 CENTERINC MINUTES OFFICE 92426 PARMINDER LLOYD 8 8 PRIMARY CLARITZA E T VISIT CARE 15 CENTERINC MINUTES OFFICE 38664 PARMINDER LASREN 8 8 PRIMARY ALIN A T VISIT CARE 15 CENTERINC MINUTES OFFICE 89819 PARMINDER MILLER 8 8 PRIMARY ANDRZEJ Clemente T VISIT CARE 15 CENTERINC MINUTES OFFICE 55224 PARMINDER KARIMI 8 8 PRIMARY BRIDGETTE P T VISIT CARE 15 CENTERINC MINUTES
--- OUTSIDE RECORDS SUMMARY | 2016-08-30 23:07 | External Medical Summary Rpt ---
Author Author , Organization [employer] Address Unknown Phone Unavailable Care Team Providers Care Chief Bank Examiner Name Role Phone [facility], Unavailable Unavailable [facility] AWOSIKA BRANDEN, AWOSIKA Unavailable Unavailable BRANDEN AWOSIKA BRANDEN, AWOSIKA Unavailable Unavailable BRANDEN BEINEKE HENNA, BEINEKE Unavailable Unavailable HENNA TIAN FRANCO, TIAN FRANCO Unavailable Unavailable [facility] Unavailable Unavailable [facility], [facility] KIKIGEOFFREY YEAGER A, Unavailable Unavailable KIKIGEOFFREY YEAGER A KANG HONG, KAPADIA Unavailable Unavailable HONG KAPADIA HONG, KAPADIA Unavailable Unavailable HONG [facility] Unavailable Un[facility] Un[facility] GUERLINE HONG, GUERLINE Unavailable Unavailable HONG SU CASTELLANOS, SU JASMIN Unavailable Unavailable DEANDRE BLUE DOTY, Unavailable Unavailable DEANDRE Kauffman [facility], Unavailable Unavailable [facility] RANJAN SIMI, RANJAN Unavailable Unavailable SIMI FLETCHER WOODRUFF S, Unavailable Unavailable RANJAN, FLETCHER S KAMARA ANT, KAMARA Unavailable Unavailable ANT SHAYE DEN, GORE DEN Unavailable Unavailable [facility], Unavailable Unavailable [facility] Unavailable Unavailable INC, [facility] LAWTON KELIN, LAWTON Unavailable Unavailable KELIN LAWTON KELIN, LAWTON Unavailable Unavailable KELIN HILTON RAMIREZ, Unavailable Unavailable HILTON RAMIREZ [facility] Unavailable Unavailable IMAGING ASS, [facility] Unavailable Unavailable [facility]available Unavailable [facility] # [facility]available Unavailable [id number], [facility] # [id number] [id number], Unavailable Unavailable [id number] PA[facility], Unavailable Unavailable [facility] Unavailable Unavailable HOLD[facility], [facility] Unavailable Unavailable [facility], [facility], Unavailable Unavailable [facility] [employer] [facility] Unavailable Unavailable [facility], [facility] Unavailable Unavailable [facility], [facility] Unavailable Unavailable [facility], [facility] Unavailable Unavailable [facility], [facility] Unavailable Unavailable SERVICES, [facility] Unavailable Unavailable ASSOCIAT, [facility] Unavailable Unavailable SURGERY, [facility] Unavailable Unavailable MEDICAL, [facility] Unavailable Unavailable [facility]ENTER, [facility] BRIDGETTE PEREYRA P, Unavailable Unavailable [facility], Unavailable Unavailable [facility] MARTIN STEVAN, MARTIN STEVAN Unavailable Unavailable [facility], Unavailable Unavailable PLLC, [facility] DIEGO ANDREE, DIEGO ANDREE Unavailable Unavailable ANDRZEJ HERRERA, Unavailable Unavailable ANDRZEJ HERRERA JR [place], Unavailable Unavailable PICKLESIMER JR [place] PORNOY ORA, PORNOY Unavailable Unavailable ORA PORNOY ORA, PORNOY Unavailable Unavailable ORA YEISON BERTA, YEISON Unavailable Unavailable BERTA [facility], Unavailable Unavailable [facility], Unavailable Unavailable [facility] JOSE, ASPEN N, Unavailable Unavailable JOSE, ASPEN N DARA MARLEE, DARA Unavailable Unavailable MARLEE DARA ALIN A, Unavailable Unavailable DARAMARLEE SPRINGERISSA YAHIR WOO, Unavailable Unavailable YAHIR NEWSOME [id number], Unavailable Unavailable [id number] Unavailable Unavailable [facility], [facility] Un[facility] Un[facility] Unavailable DEPARTMENT, [facility] SADEK MOH, SADEK MOH Unavailable Unavailable SADEK MOH, SADEK MOH Unavailable Unavailable SHOWER, YOGESH L, Unavailable Unavailable SHOWER, YOGESH L [facility] SPADY KELIN, SPADY KELIN Unavailable Unavailable SPADY KELIN, SPADY KELIN Unavailable Unavailable NANDINI AUD, NANDINI Unavailable Unavailable AUD NANDINI AUD, NANDINI Unavailable Unavailable AUD NANDINI, YOMI, Unavailable Unavailable NANDINI, YOMI NATALIIA RAG, Unavailable Unavailable NATALIIA RAG NATALIIA RAG, Unavailable Unavailable NATALIIA [facility] Unavailable Unavailable PHYSICIANS [facility] Unavailable Unavailable PHYSICIANS MAY, [facility] PH[facility]IC[facility]ANS MAY DE LA CRUZ KER, DE LA CRUZ KER Unavailable Unavailable [facility], Unavailable Unavailable [facility], Unavailable Unavailable [facility] Unavailable Unavailable LABORATORIES, [facility] MARQUIS DEVRIES, Unavailable Unavailable MARQUIS DEVRIES, LJ Unavailable Unavailable MARQUIS CARABALLO, Unavailable Unavailable MARQUIS CALHOUN KATHRYN, Unavailable Unavailable BRIAN POE Purpose Continuity of Care Document - 05-05-2007 through 2016 Problems Code Diagnosis DOS Provider Status J209 ACUTE 01-24-2016 [facility] N EMERGENCY UNSPECIFIED PHYS R05 COUGH 01-24-2016 [facility] Z720 TOBACCO USE 01-24-2016 [facility] I889 NONSPECIFIC 03-06-2015 [facility] IS UNSPECIFIED R7989 OTHER SPEC 03-06-2015 [facility] FINDINGS BLOOD CHEMISTRY 7245 UNSPECIFIED 01-30-2015 [facility] 65891 ABDOMINAL 01-14-2015 [facility] OTHER PHYSICIANS, SPECIFIED [facility] SITE 72448 [facility] COMP 01-14-2015 [place] GENITOURINA MEDICAL RY DEVICE IMAGING ASS IMPLANT&GRA FT OTH 61585 ENDOCARDITI 05-25-2014 [facility] S VALVE REGIONAL UNSPECIFIED MEDICAL UNSPECIFIED CAUSE 58940 OTHER 05-25-2014 NATALIIA ENDOCARDITI RAG S VALVE UNSPECIFIED 6823 CELLULITIS 05-25-2014 [facility] AND ABSCESS REGIONAL OF UPPER MEDICAL ARM AND FOREARM 4519 PHLEBITIS&T 05-14-2014 NAT[facility] HROMBOPHLEB RAG ITIS OF UNSPECIFIED SITE 02393 ACUTE 05-13-2014 [facility] THROMB ASSOCIAT SUP VEINS UPPER EXT 55834 UNSPECIFIED 02-21-2014 [facility] DENTAL N EMERGENCY CARIES PHYS 5259 UNSPECIFIED 02-21-2014 [facility] DISORDER N EMERGENCY TEETH&SUPPO PHYS RTING STRUCTURES 33780 UNSPECIFIED 01-09-2014 [facility] VIRAL REGIONAL HEPATITIS C MEDICAL W/O HEPATIC COMA 78219 DYSPLASIA 01-09-2014 [facility] C[facility] H UNSPECIFIED ANESTHESIA PSC 19360 MODERATE 01-09-2014 [facility] DYSPLASIA REGIONAL OF CERVIX MEDICAL 7969 OTHER 01-09-[address] [facility] NONSPECIFIC REGIONAL ABNORMAL MEDICAL FINDING 10821 PAP SMER 01-05-2014 [facility] CERV W/HI [facility] SQUAMOUS INTRAEPITH LES V7283 OTHER 01-05-2014 [facility] SPECIFIED PRIMARY PRE-OPERATI CARE CENTER VE EXAMINATION 62684 UNSPECIFIED 12-18-2013 [facility] VIRAL INFECTION IN CCE & UNS SITE 6202 OTHER AND 12-13-2013 [facility] UNSPECIFIED REGIONAL OVARIAN MEDICAL CYST 7873 FLATULENCE 10-24-2013 [facility] ERUCTATION AND GAS PAIN 91182 ABDOMINAL 10-24-2013 P[facility] ORA PAIN, PERIUMBILIC 7935 NONSPECIFIC 10-24-2013 [facility] ABN FINDING RAD & OTH EXAM ORGAN 77266 INCISIONAL 10-19-2013 SP[facility] KELIN HERNIA WITH OBSTRUCTION V7231 ROUTINE 09-26-2013 [facility] GYNECOLOGIC [facility] AL [facility] H EXAMINATION V7388 SPECIAL SCR 09-26-2013 LAB[facility] OF EXAMINATION SANDRA OT SPEC CHLAMYDIAL DZ V745 SCREENING 09-26-2013 LABORATORY EXAMINATION [facility] OF FOR [place]A VENEREAL DISEASE V762 SCREENING 09-26-2013 LABOR[facility]ORY FOR [facility] OF MALIGNANT SANDRA NEOPLASM OF THE CERVIX 5531 UMB HERNIA 09-20-2013 [facility] WITHOUT MENTION OBSTRUCTION /GANGRENE 28133 UNSPEC 09-20-2013 [facility] JOHN KONG W/O PHYSICIANS MENTION MAY OBST/GANGRE N 5718 OTHER 09-20-2013 [facility] CHRONIC NONALCOHOLI C LIVER DISEASE 62419 OTHER 09-20-2013 [facility] SPECIFIED DISORDERS OF URETHRA V7241 09-14-2013 [facility]ALTH OR TEST DEPARTME NEGATIVE RESULT 22700 ABDOMINAL 09-13-2013 [facility] PAIN, UNSPECIFIED SITE 18118 ABDOMINAL 09-13-2013 PORNOY ORA PAIN, LEFT UPPER QUADRANT V4579 OTHER 09-13-2013 [facility] ACQUIRED ABSENCE OF ORGAN 86845 ACUT PEPTC 09-11-2013 [facility] ULCR UNS REGIONAL SITE MEDICAL W/HEMORR&PE RF W/O OBST 50569 UNSPECIFIED 09-11-2013 [facility] [place] N 71174 PAIN IN 08-28-2013 [facility] JOINT, GENERAL LOWER LEG SURGERY 8362 OTHER TEAR 08-28-2013 [facility] CARTILAGE GENERAL OR MENISCUS SURGERY KNEE CURRENT 9597 INJURY 08-28-2013 [facility] OTHER&UNSPE GENERAL CIFIED KNEE SURGERY LEG ANKLE&FOOT 57144 EFFUSION OF 08-24-2013 [facility] [place] LOWER LEG JOINT 2449 UNSPECIFIED 07-07-2013 NANDINI AUD HYPOTHYROID ISM 04491 UNSPECIFIED 07-07-2013 [facility] Y OF KNEE AUGUST 9598 INJURY 07-07-2013 [facility] OTHER AND UNSPECIFIED UNSPECIFIED SITE V7791 SCREENING 07-07-2013 NANDINI AUD FOR LIPOID DISORDERS 6961 OTHER 03-22-2013 NANDINI AUD PSORIASIS AND SIMILAR DISORDERS V0481 NEED 03-22-2013 NANDINI AUD PROPHYLACTI C VACCINATION &INOCULATIO N FLU 8471 THORACIC 07-26-2012 I [facility], STR[facility] INC. 4619 ACUTE 07-25-2012 [facility] SINUSITIS, EMERGENCY UNSPECIFIED SERVICES 43061 DEGEN 07-19-2012 [facility]/ RADIOLOGY ORACOLUMBAR ASSOCIAT INTERVERTEB RAL DISC 42874 CHRONIC 07-06-2012 [facility] WITHOUT MENTION HEPATIC COMA V700 ROUTINE 07-06-2012 [facility] MEDICAL EXAM@HEALTH CARE FACL 0701 VIRAL 05-10-2012 [facility] JOHN WITHOUT PHYSICIANS MENTION OF AUGUST HEPATIC COMA 13765 UNSPECIFIED 05-06-2012 AWOSIKA BRANDEN ASTIGMATISM 7840 HEADACHE 05-06-2012 AWOSIKA BRANDEN 5990 URINARY 11-28-2011 [facility] TRACT [facility] INFECTION SERVICES SITE NOT SPECIFIED 22322 UNSPECIFIED 11-28-2011 [facility] RETENTION EMERGENCY OF URINE SERVICES 7099 UNSPECIFIED 11-13-2011 [facility] DISORDER AMERIC OF HOLDING SKIN&SUBCUT ANEOUS TISSUE 2662 OTHER 07-17-2011 [facility] B-COMPLEX CO HEALTH DEFICIENCIE DEPARTME S 5959 UNSPECIFIED 02-07-2011 [facility] CYSTITIS [facility]ERGENCY SERVICES 2384 NEOPLASM 12-19-2010 NANDINI AUD UNCERTAIN BEHAVIOR POLYCYTHEMI A VERA 2890 POLYCYTHEMI 12-19-2010 [facility] A, AMERIC SECONDARY HOLDING 8509 UNSPECIFIED 10-24-2010 NANDINI AUD CONCUSSION 88802 UNSPECIFIED 10-11-2010 [facility] ACUTE EMERGENCY CONJUNCTIVI SERVICES TIS 06773 OTHER 10-11-2010 [facility] DISEASES OF EMERGENCY NASAL SERVICES CAVITY AND SINUSES 9190 ABRASION/FR 10-11-2010 [facility] ICION BURN EMERGENCY OTH MX&UNS SERVICES SITE W/O INF 4660 ACUTE 08-06-2010 NANDINI AUD BRONCHITIS 6262 EXCESSIVE 06-06-2010 NANDINI AUD OR FREQUENT MENSTRUATIO N 50444 CHOLECYSTIT 05-08-2010 [facility] IS, H UNSPECIFIED ANESTHESIA PSC 82635 CHRONIC 05-08-2010 [facility] CHOLECYSTIT REGIONAL IS MEDICAL 5758 OTHER 05-08-2010 [facility] SPECIFIED REGIONAL DISORDER OF MEDICAL GALLBLADDER 6146 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 [facility] PERITONEAL REGIONAL ADHESIONS, MEDICAL FEMALE 7856 ENLARGEMENT 05-08-2010 [facility] [place] [facility] NODES 7862 COUGH 05-06-2010 [facility] 86876 ABDOMINAL 04-02-2010 [facility] PAIN RIGHT REGIONAL UPPER MEDICAL QUADRANT 50160 ACUTE 03-22-2010 [facility] GASTR[facility]ERGENCY WITHOUT SERVICES MENTION OF HEMORRHAGE 42088 UNS 03-22-2010 [facility] GASTRITIS&G REGIONAL ASTRODUODIT MEDICAL IS W/O MENTION HEMORR 59270 VOMITING 03-22-2010 [facility]ONE [facility] MEDICAL 1105 DERMATOPHYT 12-24-2009 NANDINI AUD OSIS OF THE BODY 26588 OBESITY, 12-24-2009 NANDINI AUD UNSPECIFIED 61660 OTHER 12-24-2009 NANDINI AUD MALAISE AND FATIGUE [...] 11-25-2009 [facility] SOFT [place] TISSUES OF LIMB 17021 ABDOMINAL 11-25-2009 [facility] LOWER QUADRANT 80540 OTHER 11-25-2009 [facility] 8419 SPRAIN&STRA 09-15-2009 [facility] IN EMERGENCY UNSPECIFIED SERVICES SITE ASSOCIATES [place]OW&[place] [address] CONTUSION 09-15-2009 [facility]GENC[facility] SERVICES ASSOCIATES 9593 INJURY 09-15-2009 [place] OTHER&UNSPE MEDICAL CIFIED IMAGING [facility]ATES FOREARM&WRI ST E8809 ACCIDENTAL 09-15-2009 [facility] FALL ON OR EMERGENCY FROM OTHER SERVICES STAIRS OR ASSOCIATES STEPS 57329 THYROTOX 08-28-2009 [facility] [place] [facility] GOITER/OTH CAUSE W/O CRISIS 1104 DERMATOPHYT 07-27-2009 [facility], OSIS OF YAHIR Lopez FOOT 69181 MORBID 07-27-2009 [facility], OBESITY [place] 7831 ABNORMAL 07-24-2009 [facility], WEIGHT GAIN YAHIR Lopez 3804 IMPACTED 07-17-2009 [facility] CERUMEN [place] 6260 ABSENCE OF 03-21-2009 [facility] 57746 MILD 02-19-2009 [facility] DYSPLASIA PRIMARY OF [facility] CARE CENTERINC 6253 DYSMENORRHE 02-19-2009 [facility] A [facility]ARE CENTER[facility] V2502 GENERAL 02-19-2009 [facility] CNSL PRIMARY INITIATION CARE OTH CENTERINC CONTRACEPT MEASURES 7881 DYSURIA 02-05-2009 [facility]ENTER[facility] 32553 PAP SMER 12-25-2008 [facility] [place] INC W/ATYPICAL SQUAMOUS CELLS UNDET 42383 ACUTE 11-05-2008 NANDINI, DYSTONIA YOMI DUE TO DRUGS 7231 CERVICALGIA 11-03-2008 [facility] 81651 INJURY OF 11-03-2008 [facility] FACE AND [facility]B SERVICE NECK OTHER AND UNSPECIFIED 6268 OTH D/O 09-25-2008 [facility] MENSTRUATIO PRIMARY N&OTH ABN CARE BLEED FE CENTERINC GNT TRACT 2113 BENIGN 02-21-2008 [place] NEOPLASM OF TRACE COLON GASTROENTER OLOGY 5693 HEMORRHAGE 02-21-2008 [place] OF RECTUM TRACE AND ANUS GASTROENTER OLOGY 5699 UNSPECIFIED 02-21-2008 [facility] DISORDER [place] INC OF INTESTINE 5781 BLOOD IN 01-25-2008 [facility] STOOL PRIMARY CARE CENTERINC 76186 C/S DELIV 01-25-2008 [facility] W/O INDICAT PRIMARY DELIV W/WO CARE ANTPRTM CENTERINC COND V242 ROUTINE 01-25-2008 [facility] PRIMARY FOLLOW-UP CARE CENTERINC V252 STERILIZATI 01-25-2008 [facility] ON PRIMARY CARE CENTERINC 93918 BREECH 12-13-2007 [facility] XTRAC W/O PRIMARY INDICAT CARE DELIV W/WO CENTERINC ANTPRTM COND V270 OUTCOME OF 12-13-2007 [facility] DELIVERY PRIMARY SINGLE CARE LIVEBORN CENTERINC 18785 BREECH 12-11-2007 [facility] PRESENTATIO H N W/O ANESTHESIA MENTION PSC VERSION DELIV 79682 OTH SPEC 12-11-2007 [facility] &PLACN REGIONAL TL PROBS MEDICAL [facility] DELIV 49902 PREVIOUS 12-07-2007 [facility] C-SECT REGIONAL DELIVERY MEDICAL ANTPRTM CENTER COND/COMP 7242 LUMBAGO 12-07-2007 [facility]IMARY CARE [facility]ENTERINC V221 SUPERVISION 12-07-2007 [facility] OF OTHER PRIMARY NORMAL CARE CENTERINC V2389 SUPERVISION 12-07-2007 [facility] OF OTHER PRIMARY HIGH-RISK CARE CENTERINC V7242 11-14-2007 [facility] EXAMINATION PRIMARY OR TEST CARE POSITIVE CENTERINC RESULT 03627 UNS 07-26-2007 [facility] ABNORM MGMT PRIMARY MOTH CARE [facility] CENTER[facility] COND/COMP 51511 OTH CURRENT 07-11-2007 [facility]/CO MATERNAL HEALTH CCE-COMPL CENTRAL PG BANK ACCT CB/PP-UNS EOC V653 DIETARY 07-11-2007 [facility]/CO SURVEILLANC HEALTH E AND CENTRAL COUNSELING BANK ACCT V288 OTHER 05-16-2007 [facility] SPECIFIED PRIMARY CARE SCREENING CENTERINC Medications Na ND Rx Da Fi Fi Am Da Di Ph RX Ph St me C No te ll ll ou ys ag ar # ys at rm s nt no ma ic us Or Da si cy ia de te s n re d BU 00 02 03 3. 3 00 GE Ac NM 05 -1 -2 00 00 OR ti EN 40 7- 4- 0 04 GE ve OR 18 20 20 01 TO PH 91 17 17 67 WN IN 3 59 -N AP AL OT OX HE ON CA RY 8- 2 MG SL BU 00 02 03 4. 4 00 GE Ac NM 05 -1 -1 00 00 OR ti EN 40 3- 7- 0 04 GE ve OR 18 20 20 01 TO PH 91 17 17 66 WN IN 3 30 -N AP AL OT OX HE ON CA RY 8- 2 MG SL BU 00 02 03 5. 5 00 GE Ac NM 05 -0 -1 00 00 OR ti EN 40 3- 0- 0 04 GE ve OR 18 20 20 01 TO PH 91 17 17 63 WN IN 3 43 -N AP AL OT OX HE ON CA RY 8- 2 MG SL BU 00 01 03 4. 4 00 GE Ac NM 05 -3 -0 00 00 OR ti [...] MC G #5 TA 91 BL ET BU 00 01 02 5. 5 00 GE Ac NM 05 -2 -2 00 00 OR ti EN 40 0- 4- 0 04 GE ve OR 18 20 20 01 TO PH 91 17 17 59 WN IN 3 32 -N AP AL OT OX HE ON CA RY 8- 2 MG SL LE 00 05 10 1 90 90 KR 61 SP Ac VO 52 -2 -2 .0 OG 99 EN ti TH 71 0- 2- 00 ER 40 CE ve YR 34 20 20 9 R OX 31 11 11 PH AU IN [address] E MA EY 75 CY # MC G 14 TA 42 BL 0 ET 00 08 10 2 30 15 KR 62 SP Ac 14 -1 -2 .0 OG 12 EN ti 31 9- 2- 00 ER 27 CE ve 34 20 20 4 R 70 11 11 PH AU [address] VINAY EY CY # 14 42 0 POWERS 53 10 10 0 20 10 KR 62 POWERS Ac LF 74 -1 -1 .0 OG 20 LL ti AM 60 1- - ER 81 IV ve ET 27 20 20 0 AN HO 20 11 11 PH XA 1 AR CH ZO MA RI LE CY ST -T # IN MP A 14 M DS 42 0 TA BL ET AM 00 10 10 0 10 5 KR 62 AMADA Ac OX 78 -0 -0 .0 OG 20 HN ti -C 11 8- 9- 00 ER 33 SO ve LA 85 20 20 2 N V 22 11 11 PH DO 87 0 AR NA 5- MA LD 12 CY J 5 # MG 14 TA 42 BL 0 ET PH 65 10 10 0 10 3 KR 62 AMADA Ac EN 16 -0 -0 .0 OG 20 HN ti AZ 20 8- 9- 00 ER 33 SO ve OP 51 20 20 3 N YR 71 11 11 PH DO ID 0 AR NA IN MA LD E CY J 10 # 0 MG 14 42 TA 0 B NA 53 08 08 2 30 15 KR 62 SP Ac NM 74 -1 -1 .0 OG 12 EN [...] 7- 7- [address] ve NM 28 20 20 6 AC AM 25 11 11 PH Y 4 AR L HB MA R CY 40 # MG 14 42 TA 0 BL ET CE 42 06 06 0 20 5 KR 62 RO Ac PH 04 -1 -1 .0 OG 02 HE ti AL 30 1- 2- 00 ER 52 ve EX 14 20 20 1 PA IN 10 11 11 PH IG 1 AR E 50 MA E 0 CY MG # CA 14 PS 42 UL 0 E ON 55 06 06 0 12 30 KR 62 RO Ac DA 11 -1 -1 .0 OG 02 HE ti NS 10 1- 2- 00 ER 52 ve ET 15 20 20 2 PA RO 33 11 11 PH IG N 0 AR E HC MA E L CY 4 # MG 14 TA 42 BL 0 ET 49 06 06 0 40 10 KR 62 RO Ac 88 -1 -1 0. OG 02 HE ti 40 1- 2- 00 ER 52 ve 60 20 20 0 3 PA 04 11 11 PH IG 0 AR E MA E CY # 14 42 0 CI 68 05 05 2 30 30 KR 62 SP Ac TA 64 -3 -3 .0 OG 00 EN ti LO 50 1- 1- 00 ER 71 CE ve NM 28 20 20 2 R AM 25 [...] 0- 0- 00 ER 40 CE ve NM 28 20 20 7 R AM 25 11 11 PH AU [address] HB MA EY R CY 40 # MG 14 42 TA 0 BL ET CY 59 05 05 2 30 10 KR 61 SP Ac CL 74 -2 -2 .0 OG 99 EN ti OB 60 0- 0- 00 ER 40 CE ve EN 21 20 20 8 R ZA 10 11 11 PH AU NM [address] IN MA EY E [...] G 14 TA 42 BL 0 ET AZ 00 04 04 0 6. 5 KR 61 SP Ac IT 09 -0 -0 00 OG 92 EN ti HR 37 6- 6- 0 ER 45 CE ve OM 14 20 20 5 R YC 61 11 11 PH AU IN [address] MA EY 25 CY 0 # MG 14 TA 42 BL 0 ET CI 68 03 03 2 15 30 KR 61 SP Ac TA 64 -0 -0 .0 OG 87 EN ti LO 50 9- 9- 00 ER 67 CE ve NM 28 20 20 9 R AM 25 11 11 PH AU [address] HB MA EY R CY 40 # MG 14 42 TA 0 BL ET CI 55 02 02 0 10 5 KR 61 PO Ac NM 11 -2 -2 .0 OG 85 RN [...] CA 14 PS 42 UL 0 E 64 11 11 0 [address] Ac 67 -2 -2 .0 OG 70 OU ti 90 0- 0- 00 ER 75 T ve 90 20 20 8 KE 60 10 10 PH RR 1 AR IC MA K CY L # 14 42 0 NM 68 11 11 0 8[address] Ac OM 38 -2 -2 00 OG 70 OU ti ET 20 0- 0- 0 ER 75 T ve FUNEZ 04 20 20 9 KE ZI 10 10 10 PH RR NE 1 AR IC MA K 25 CY L # MG 14 TA 42 BL 0 ET SP 00 08 09 11 28 28 KR 61 NM Ac RI 55 -1 -1 .0 OG 55 AD ti NT 59 7- 2- 00 ER 59 FUNEZ ve EC 01 20 20 7 N 65 10 10 PH SO 28 8 AR MA MA DA CY Y # TA BL 14 ET 42 0 SP 00 08 08 11 28 28 KR 61 NM Ac RI 55 -1 -1 .0 OG 55 AD ti NT 59 7- 7- 00 ER 59 FUNEZ ve EC 01 20 20 7 N 65 10 10 PH SO 28 8 AR MA MA DA CY Y # TA BL 14 ET 42 0 DO 53 08 08 0 14 7 KR 61 NM Ac XY 48 -1 -1 .0 OG 55 AD ti CY 90 7- 7- 00 ER 59 FUNEZ ve CL 12 20 20 8 N IN 00 10 10 PH SO E 2 AR MA HY MA CL CY AT # E 10 14 0 42 MG 0 TA B LE 00 05 08 3 30 30 [...] 0 20 10 KR 61 No Ac NM 09 -2 -2 .0 OG 52 t [...] 20 20 0 70 10 10 PH DC 1 AR CH MA AE CY L [...] 14 TA 42 BL 0 ET 00 04 04 0 16 4 KR 44 BU Ac 40 -1 -1 .0 OG 74 RN ti 60 2- 2- 00 ER 35 S ve 35 20 20 3 AMADA 70 10 10 PH HN 1 AR T MA CY # 14 42 0 PE 00 04 04 0 28 7 KR 61 BU Ac NI 78 -1 -1 .0 OG 37 RN ti CI 11 2- 2- 00 ER 57 S ve LL 65 20 20 5 AMADA IN 51 10 10 PH HN 0 AR T VK MA CY 50 # 0 MG 14 42 TA 0 BL ET LE 00 03 03 1 30 30 KR 61 No Ac VO 52 -2 -2 .0 OG 35 t ti TH 71 7 00 ER 44 Av ve YR 34 20 20 5 ai OX 20 10 10 PH la IN 1 AR bl E MA e 50 CY # MC G 14 TA 42 BL 0 ET FL 68 03 03 1 10 10 KR 61 No Ac UC 46 -1 -1 .0 OG 33 t ti ON 20 ER 90 Av ve AZ 10 20 20 5 ai OL 34 10 10 PH la E 0 AR bl 15 MA e 0 CY MG # TA 14 BL 42 ET 0 [place] 00 03 03 3 30 15 KR [address] 16 -1 -1 .0 OG 33 t ti AT 80 ER 90 Av ve IN 05 20 20 6 ai 43 10 10 PH la 10 0 AR bl 0, MA e 00 CY 0 # UN IT 14 /G 42 M 0 CR EA M BA 00 01 01 00 20 6 KR 61 FO Ac CL 83 -1 -[address] ti OF 21 ER 81 ER ve EN 02 20 20 5 40 10 10 PH JA 10 0 AR ME MA S MG CY M TA #4 BL 20 ET OX 00 01 01 00 15 2 KR 22 FO Ac YC 40 -1 -[address] ti OD 60 8 00 ER 41 ER ve ON 51 20 20 7 E- 20 10 10 PH JA AC 1 AR ME ET MA S AM CY M IN OP #4 HE 20 N 5- 32 5 IB 53 01 01 00 24 8 KR 61 FO Ac UP 74 -1 -[address] ti RO 60 9 8 00 ER 81 ER ve FE 46 20 [...] 09 09 PH TH VA 3 AR RY GI MA N NA CY L RI #4 NG 20 NU 00 10 11 00 3. 90 KR 61 YO Ac VA 05 -2 -0 00 OG 09 UN ti RI 20 0- 5- 0 ER 27 G ve NG 27 20 20 4 KA 30 09 09 PH TH VA 3 AR RY GI VINAY N NA CY L RI #4 NG [...] OL #4 20 33 50 PO WD SP 00 08 09 00 28 28 KR 60 ME Ac RI 55 -2 -1 .0 OG 99 ES ti NT 59 5- 0- 00 ER 92 E ve EC [address] 65 09 09 PH EP 28 8 AR HE MA N DA CY P Y TA #4 BL 20 ET IB 53 08 09 00 30 10 KR 60 ME Ac UP 74 -2 -1 .0 OG 99 ES ti RO 60 5- 0- 00 ER 92 E ve FE [address] N 60 09 09 PH EP 80 1 AR HE 0 MA N MG CY P TA #4 BL 20 ET POWERS 53 [...] MG 92 A 0 TA BL ET SP 00 05 06 00 28 28 KR 60 ME Ac RI 55 -2 -0 .0 OG 86 ES ti NT 59 6- 4- 00 ER 86 E ve EC [address] 65 09 09 PH EP 28 8 AR HE MA N DA CY P Y TA #4 BL 20 ET IB 53 05 06 00 30 10 KR 60 ME Ac UP 74 -2 -0 .0 OG 86 ES ti RO 60 6- 4- 00 ER 86 E ve FE [address] N 60 09 09 PH EP 80 1 AR HE 0 MA N MG CY P TA #4 BL 20 ET PE 00 [...] -0 -2 .0 OG 49 t ti NM 90 8- 3- 00 ER 96 Av ve EP 70 20 20 5 ai 14 08 08 PH la TA 1 AR bl BL MA e ET CY #4 20 PE 00 08 09 00 28 7 KR 60 No Ac NI 78 -2 -1 .0 OG 43 t ti CI 11 6- 1- 00 ER 11 Av ve LL 65 20 20 2 ai IN 51 08 08 PH la 0 AR bl VK MA e CY 50 0 #4 MG 20 TA BL ET OX 00 08 09 00 16 4 KR 22 No Ac YC 40 -2 -1 .0 OG 15 t ti OD 60 6- 1- 00 ER 86 Av ve ON 51 20 20 0 ai E- 20 08 08 PH la AC 1 AR bl ET MA e AM CY IN OP #4 HE 20 N 5- 32 5 CI 55 08 09 00 14 7 KR 60 No Ac NM 11 -2 -1 .0 OG 43 t [...] D #3 #4 20 TA BL ET 59 01 03 00 30 30 KR 60 No Ac 63 -0 -2 .0 OG 09 t ti 00 3- 4- 00 ER 92 Av ve 41 20 20 9 ai 19 08 08 PH la 0 AR bl MA e CY #4 20 64 01 03 00 30 30 KR 60 No Ac 01 -0 -2 .0 OG 09 t ti 10 3- 4- 00 ER 93 Av ve 20 20 20 0 ai 73 08 08 PH la 4 AR bl MA e CY #4 20 Procedures Procedure DOS Code Location Performer Comment RADIOLOGI 44323 [facility] C EXAM 6 [facility] 2 RADIOLOGY VIEWS ASSOCIAT FRONTAL&L ATERAL COMPREHEN 32217 [facility] S[facility] [place] [address] [facility] THYROXINE [facility] TOTAL INC INC BLOOD 88843 [facility] ER JR [place] PERIPHERA L INTERP PHYS W/WRIT REPORT 25 [id number] [facility]DROXY [facility] INCLUDES INC INC FRACTIONS IF PERFORMED BLOOD 30327 [facility] COUNT [facility] COMPLETE INC INC AUTO&[place] [address] [facility] [place] [address] [facility]BDOMEN & 5 MEDICAL HENNA PELVIS IMAGING W/O ASS CONTRAST MATERIAL ANES 12302 [facility] GUERLINE NON-INVAS 5 LTH HONG BRUNILDA ANESTHESI IMAGING/R A PSC ADIATION THERAPY RINGERS J7120 MEADOWVIE MEADOWVIE LACTATE 5 W W [facility] MED[facility] 1000 CC ECHO 39992 [facility] RANGEL TRANSESOP 5 N RAG N RAG HAG R-T 2D W/PRB IMG ACQUISJ I&R ECG 60804 CLA[facility] ESTEVEZA ROUTINE 5 N RAG N RAG ECG W/LEAST 12 LDS W/I&R INITIAL 18658 [facility] 5 W GENERAL CARE/DAY SURGERY 30 MINUTES ECHO 78246 CLAIRE RANGEL TTHRC R-T 5 N RAG N RAG 2D W/WOM-MOD E COMPL SPEC&COLR D DUP-SCAN 92614 [facility] XTR VEINS 5 KELIN RADIOLOGY UNILATERA ASSOCIAT L/LIMITED STUDY LEVEL V 98128 MEADOWVIE MEADOWVIE SURG 4 W W PATHOLOGY [facility] GROSS&SIMI ROSCOPIC EXAM ANESTHESI 67778 COMMONWEA TIAN FRANCO A VAGINAL 4 LTH ANESTHESI PROCEDURE A PSC W/BIOPSY NOS CONIZATIO 40640 MEADOWVIE MEADOWVIE N CERVIX 4 W W W/WO D&C [facility] ELTRD MEDICAL MEDICAL EXC CATHETER C1758 MEADOWVIE MEADOWVIE URETERAL 4 W W [facility] [place] [address] MEADOWVIE MEADOWVIE SURG 4 W W PATHOLOGY [facility] GROSS&SIMI ROSCOPIC EXAM GONADOTRO 70173 MEADOWVIE MEADOWVIE PIN [address] [facility] QUALITATI VE BLOOD 67566 MEADOWVIE MEADOWVIE COUNT 4 W W COMPLETE REGIONAL REGIONAL AUTO&AUTO MEDICAL MEDICAL DIFRNTL WBC URNLS DIP 90187 CHRISTEN VELÁSQUEZ 4 W W STICK/TAB REGIONAL REGIONAL LET MEDICAL MEDICAL REAGENT AUTO MICROSCOP Y COLLECTIO 85912 CHRISTEN VELÁSQUEZ N VENOUS 4 W W BLOOD [facility] VENIPUNCT MEDICAL MEDICAL URE POTASSIUM 50843 CHRISTEN VELÁSQUEZ SERUM 4 W W PLASMA/WH REGIONAL REGIONAL OLE BLOOD MEDICAL MEDICAL RADEX 99256 [place] ABDOMEN 4 HONG HONG COMPL W/DCBTS&/ ERC VIEWS REPAIR 25737 SPADY KELIN SPADY KELIN FIRST 4 ABDOMINAL WALL HERNIA IMPLANT 06449 SPADY KELIN SPADY KELIN MESH OPN 4 HERNIA RPR/[place] [address] LABORATOR LABORATOR SURG 4 Y Y PATHOLOGY CORPORATI CORPORATI ON OF AM ON OF AM GROSS&SIMI ROSCOPIC EXAM COLPOSCOP 13254 DARA DARA Y CERVIX 4 MARLEE MARLEE BX CERVIX & ENDOCRV CURRETAGE IADNA 19416 LABORATOR LABORATOR NEISSERIA 4 Y BILLY OF Y BILLY OF SNADRA SANDRA GONORRHOE H H AE AMPLIFIED PROBE TQ IADNA 33065 LABORATOR LABORATOR PAPILLOMA 4 Y BILLY OF Y BILLY OF VIRUS SANDRA SANDRA HUMAN H H AMPLIFIED PROBE TQ CYTP 25649 LABORATOR LABORATOR CERVICAL/ 4 Y BILLY OF Y BILLY OF VAGINAL SANDRA SANDRA REQ H H INTERP PHYSICIAN IADNA 91456 LABORATOR LABORATOR CHLAMYDIA 4 Y BILLY OF Y BILLY OF SANDRA SANDRA TRACHOMAT H H IS AMPLIFIED PROBE TQ CYTP C/V 98978 LABORATOR LABORATOR AUTO THIN 4 Y BILLY OF Y BILLY OF LYR SANDRA SANDRA PREPJ SCR H H MNL RESCR PHYS LOCM Q9967 [facility] [address] [phone] JOHN JOHN MG/ML IODINE PHYSICIAN PHYSICIAN [place] [address] ABDOMEN & 4 JOHN JOHN PELVIS W/CONTRAS PHYSICIAN PHYSICIAN T August MATERIAL URINE 06834 KENAN GRAYSON 4 CO CO TEST [facility] VISUAL DEPARTME DEPARTME COLOR CMPRSN METHS RADEX ABD 64445 [place] COMPL [address] [facility] AQT ABD W/S/E/D VIEWS 1 [place] [address] [place] ABDOMINAL [address] [facility] REAL TIME W/IMAGE LIMITED COMPREHEN 21689 MEADOWVIE MEADOWVIE SIVE 4 W W METABOLIC REGIONAL REGIONAL PANEL MEDICAL MEDICAL COLLECTIO 32578 MEADOWVIE MEADOWVIE N VENOUS 4 W W BLOOD REGIONAL REGIONAL VENIPUNCT MEDICAL MEDICAL URE URNLS DIP 87567 MEADOWVIE MEADOWVIE 4 W W STICK/TAB REGIONAL REGIONAL LET MEDICAL MEDICAL REAGENT AUTO MICROSCOP Y BLOOD 94047 MEADOWVIE MEADOWVIE COUNT 4 W W COMPLETE [facility] REGIONAL AUTO&AUTO MEDICAL MEDICAL DIFRNTL WBC CULTURE 11303 MEADOWVIE MEADOWVIE BACTERIAL 4 W W [facility] QUANTTATI MEDICAL MEDICAL VE COLONY COUNT URINE INJECTION J3301 MERLINENEEL [place] 4 W GENERAL III PAO TRIAMCINO SURGERY LONE ACETONIDE NOS 10 MG ARTHROCEN 00133 MERLINEDESTINEYTAVIA GORGE TESIS 4 W GENERAL III PAO ASPIR&/IN SURGERY J MAJOR JT/BURSA W/O US MRI ANY 33079 MEADOWTAVIA MEADOWVIE JT LOWER 4 W W EXTREM [facility] W/O MEDICAL MEDICAL CONTRAST MATRL RADIOLOGI 68521 [facility] EXAM 4 JOHNLEONCIO LOPEZ KNEE COMPLETE PHYSICIAN PHYSICIAN 4/MORE S AUGUST S AUGUST VIEWS COLLECTIO 95139 NANDINI NANDINI N VENOUS 4 AUD AUD BLOOD VENIPUNCT URE IM ADM 05266 NANDINI NANDINI PRQ ID 3 AUD AUD SUBQ/IM NJXS 1 [place] [address] [facility] THYROID 3 DIAGNOSTI DIAGNOSTI STIMULATI CS CS NG HORMONE TSH COMPREHEN 82516 [facility] SIVE 3 DIAGNOSTI DIAGNOSTI METABOLIC CS CS PANEL PHYSICAL 60529 KPI KPI THERAPY 3 THERAPY, THERAPY, EVALUATIO INC. INC. N RADEX 94048 [facility] SPINE 3 [facility] 3 VIEWS ASSOCIAT COLLECTIO 85364 [facility] N VENOUS 3 Y Y BLOOD [facility] VENIPUNCT URE HEPATITIS 76240 [facility] A 3 Y Y [facility] HAAB IADNA 75355 [facility] HEPATITIS 3 Y Y C [facility] TION HEPATITIS 94422 [facility] 3 Y Y ANTIBODY [facility] NFCT AGNT 72889 [facility] GENOTYP 3 Y Y NUCLEIC [facility] [place] [address] [facility] ABDOMINAL 3 JOHN LOPEZ REAL TIME PHYSICIAN PHYSICIAN W/IMAGE S August LIMITED VISUAL 27759 AWOSIKA AWOSIKA FIELD XM 3 BRANDEN BRANDEN UNI/BI W/INTERP INTERMED EXAM DETERMINA 27084 AWOSIKA AWOSIKA TION 3 BRANDEN BRANDEN REFRACTIV E STATE NFCT AGNT 60202 VIRO MED VIRO MED GENOTYP 3 LABORATOR LABORATOR NUCLEIC IES IES ACID HEPATITIS C VIRUS IADNA 03068 VIRO MED VIRO MED HEPATITIS 3 LABORATOR LABORATOR C IES IES AMPLIFIED PROBE&REV RSE TRANSCR CULTURE 12937 POLLY MATIAS BACTERIAL 2 [facility] INC INC QUANTTATI VE COLONY COUNT URINE URNLS DIP 09921 POLLY MATIAS 2 [facility] STICK/TAB INC INC LET REAGENT AUTO MICROSCOP Y INSJ 03347 POLLY MATIAS NON-NDWEL 2 [facility] LG INC INC BLADDER CATHETER SUSCEPTIB 56505 LAB BILLY LAB BILLY LTY STDY 2 AMERIC AMERIC ANTIMICRB HOLDING HOLDING IAL MICRO/AGA R DILUTJ CULTURE 41142 LAB BILLY LAB BILLY BACTERIAL 2 AMERIC [facility] HOLDING QUANTTATI VE COLONY COUNT URINE CULTURE 68330 LAB BILLY LAB BILLY BCT 2 AMERIC AMERIC ISOL&PRSM HOLDING HOLDING [place] [address] LAB BILLY LAB BILLY FREE 2 AMERIC AMERIC [place] [address] LAB BILLY LAB BILLY THYROID 2 AMERIC AMERIC STIMULATI HOLDING HOLDING NG HORMONE TSH URINE 39945 KENAN GRAYSON 2 CO CO TEST [facility]ALTH HEALTH VISUAL DEPARTME DEPARTME COLOR CMPRSN METHS URINLS 03195 NANDINI NANDINI DIP 1 AUD AUD STICK/TAB LET REAGNT NON-AUTO MICRSCPY BLOOD 80229 LAB BILLY LAB BILLY COUNT 1 AMERIC AMERIC COMPLETE HOLDING HOLDING AUTO&AUTO DIFRNTL WBC BLOOD 80175 LAB BILLY LAB BILLY COUNT 1 AMERIC [employer] COMPLETE [employer] HOLDING AUTO&[place] [address] LAB BILLY LAB BILLY THYROID 1 AMERIC AMERIC STIMULATI HOLDING HOLDING [place] III 21567 MEADOWVIE MEADOWVIE SURG 1 W W PATHOLOGY REGIONAL REGIONAL MEDICAL MEDICAL GROSS&SIMI ROSCOPIC EXAM URINE 81291 MEADOWVIE MEADOWVIE 1 W W TEST REGIONAL REGIONAL VISUAL MEDICAL MEDICAL COLOR CMPRSN METHS LAPAROSCO 14261 MEADOWVIE MEADOWVIE PY SURG 1 W W CHOLECYST REGIONAL REGIONAL ECTOMY MEDICAL MEDICAL ANES 13766 COMMONWEA KAMARA INTRAPERI 1 LTH ANT TONEAL ANESTHESI UPPER A PSC ABDOMEN W/LAPS NOS UNLISTED 88987 MEADOWVIE MEADOWVIE PX FEMALE 1 W W GENITAL REGIONAL REGIONAL SYSTEM MEDICAL MEDICAL NONOBSTET RICAL RADIOLOGI 95823 [facility] EXAM 1 HONG CHEST 2 RADIOLOGY VIEWS ASSOCIAT FRONTAL&L ATERAL HEPATBL 83578 MEADOWVIE MEADOWVIE DUX SYS 0 W W IMG [place]ION[place] [address] [facility] ABDOMINAL 0 KELIN REAL RADIOLOGY TIME ASSOCIAT W/IMAGE LIMITED URINE 76092 MEADOWVIE MEADOWVIE 0 W W TEST REGIONAL REGIONAL VISUAL MEDICAL MEDICAL COLOR CMPRSN METHS URNLS DIP 53225 MEADOWVIE MEADOWVIE 0 W W STICK/TAB REGIONAL REGIONAL LET MEDICAL MEDICAL REAGENT AUTO MICROSCOP Y COLLECTIO 49568 MEADOWVIE MEADOWVIE N VENOUS 0 W W BLOOD REGIONAL REGIONAL VENIPUNCT MEDICAL MEDICAL URE COMPREHEN 71120 MEADOWTAVIA MEADOWVIE SIVE 0 W W METABOLIC REGIONAL [facility] PANEL MEDICAL MEDICAL BLOOD 17017 CHRISTEN MEADOWVIE COUNT 0 W W COMPLETE [facility] REGIONAL AUTO&AUTO [place] [address] SHAYLA[place] MEADOWVIE LIPASE 0 W W [facility] [place] [place] [address] MEADOWVIE MEADOWVIE AMYLASE 0 W W [facility] [place] [place] [address] LAB BILLY LAB BILLY FREE 0 AMERIC AMERIC 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 03447 NANDINI NANDINI GLYCOSYLA 0 AUD AUD SCOT DEVICE CLEARED FDA HOME USE GENERAL 64714 LAB BILLY LAB BILLY HEALTH 0 [employer] [place] [address] [facility] TRANSVAGI [address] PELVIS 09194 [facility] 0 KELIN W/[place] [address] [facility] TRANSVAGI [address] [place] [address] [facility] ABDOMEN 0 KELIN W/O & RADIOLOGY W/CONTRAS ASSOCIAT T MATERIAL BLOOD 27836 S[facility]RE [facility]IV[facility] COUNT 0 CO [facility] AUTO&AUTO DIFRNTL WBC COMPREHEN 46551 SIL[facility]IV[facility] SIVE 0 CO [facility] PANEL COLLECTIO 67060 S[facility]IVERS N VENOUS 0 CO [facility] VENIPUNCT URE GONADOTRO 81187 SILVESTRE RIVERS PIN 0 CO [facility] QUALITATI VE RADEX 47762 [place] CLAUDY, ELBOW 0 MEDICAL SELWYN P COMPLETE IMAGING MINIMUM 3 [place] [address] [facility] THYROID 0 [facility] INC STIMULATI NG HORMONE TSH COLLECTIO 40597 MERCEDEZ NEWSOME N VENOUS 0 , CAMILLA , CAMILLA BLOOD VENIPUNCT URE GENERAL 70279 [facility] HEALTH 0 [facility] INC PANEL LIPID 05560 [facility] PANEL 0 [facility] REMOVAL 64887 RINALDINI RINALDINI IMPACTED 0 , CAMILLA , CAMILLA CERUMEN INSTRUMEN TATION UNILAT COLLECTIO 95837 MEADOWVIE MEADOWVIE N VENOUS 9 W W BLOOD [facility] VENIPUNCT [facility] MEDICAL URE CENTER CENTER GONADOTRO 21251 MEADOWVIE MEADOWVIE PIN 9 W W CHORIONIC [facility] QUANTITAT CENTER CENTER BRUNILDA URNLS DIP 98350 JAMES BLOOD MEESE, 9 PRIMARY BRIDGETTE P STICK/TAB CARE LET CENTERINC REAGENT AUTO MICROSCOP Y URNLS DIP 64419 JAMES PEREYRA, 9 PRIMARY BRIDGETTE P STICK/TAB CARE LET RGNT CENTERINC AUTO W/O MICROSCOP Y IADNA 02609 [facility] NEISSERIA 9 [facility] GONORRHOE AE AMPLIFIED PROBE TQ IADNA 28503 [facility] PAPILLOMA 9 [facility] VIRUS HUMAN AMPLIFIED PROBE TQ IADNA 97332 [facility] CHLAMYDIA 9 [facility] TRACHOMAT IS AMPLIFIED PROBE TQ GROUND A0425 BRACKEN BRACKEN MILEAGE 9 CO AMB CO AMB PER SERVICE SERVICE STATUTE MILE AMBULANCE A0429 BRACKEN BRACKEN SERVICE 9 CO AMB CO AMB BLS SERVICE [place] [address] [facility] [place], SURG 8 [place] INC [place] D PATHOLOGY GROSS&SIMI ROSCOPIC EXAM COLSC FLX [address] [facility], W/RMVL 8 TRACE MARQUIS A OF TUMOR GASTROENT POLYP EROLOGY LESION SNARE TQ POSTPARTU 46554 John [facility] C[facility] 8 PRIMARY MARQUIS R ONLY CARE SEPARATE CENTERINC PROCEDURE URNLS DIP 88784 MEADOWVIE MEADOWVIE 8 W W STICK/TAB [facility] REAGENT CENTER CENTER AUTO MICROSCOP Y CULTURE 01421 MEAWTAVIA MEAWVIE BACTERIAL 8 W W [facility] CENTER COUNT [facility] 38886 JAMES DIAMOND, CARLOS EDUARDO 8 PRIMARY ALIN A DAY CARE MANAGEMEN CENTERINC T 30 MIN/< SBSQ 09478 JAMES BLOOD DANIEL [facility] 8 PRIMARY ALIN A CARE/DAY CARE 15 CENTERINC MINUTES ANES 90779 COMMONGABBYA JOSE, CESARN 8 LTH ASPEN N DLVR FLWG ANESTHESI A PSC NEURAXIAL LABOR ANALG/ANE S ANESTHESI 64612 COMMONWEA JOSE, A 8 LTH ASPEN N ANESTHESI DELIVERY A PSC ONLY 18865 JAMES BLOOD LJ, DELIVERY 8 PRIMARY MARQUIS R ONLY CARE CENTERINC LOW 741 MEADOWVIE MEADOWVIE CERVICAL 8 W W [facility] SECTION [facility] CENTER OTH 6639 MEADOWVIE MEADOWVIE BILATERAL 8 W W [facility] DESTRUC/O MEDICAL MEDICAL CCLUSION CENTER CENTER FALLOPIAN TUBES POTASSIUM 74240 MEADOWVIE MEADOWVIE SERUM 8 W W PLASMA/WH [facility] OLE BLOOD [facility] MEDICAL CENTER CENTER CULTURE 20244 MEADOWVIE MEADOWVIE BACTERIAL 8 W W [facility] QUANTTATI [facility] MEDICAL VE COLONY CENTER CENTER COUNT URINE URNLS DIP 56692 MEADOWVIE MEADOWVIE 8 W W STICK/TAB [facility] MEDICAL REAGENT CENTER CENTER AUTO MICROSCOP Y COLLECTIO 00140 MEADOWVIE MEADOWVIE N VENOUS 8 W W BLOOD [facility] VENIPUNCT [facility] MEDICAL URE CENTER CENTER URNLS DIP 57877 JAMES PEREYRA, 8 PRIMARY BRIDGETTE P STICK/TAB CARE LET RGNT CENTERINC NON-AUTO W/O MICRSCP BLOOD 24897 MEADOWVIE MEADOWVIE COUNT 8 W W COMPLETE [facility] AUTO&AUTO MEDICAL MEDICAL DIFRNTL CENTER CENTER WBC URNLS DIP 79846 JAMES PEREYRA, 8 PRIMARY BRIDGETTE P STICK/TAB CARE LET RGNT CENTERINC NON-AUTO W/O MICRSCP URNLS DIP 85029 JAMES EHRRERA, 8 PRIMARY ANDRZEJ J STICK/TAB CARE LET RGNT CENTERINC NON-AUTO W/O MICRSCP URNLS DIP 20679 JAMES CALHOUN, 8 PRIMARY MARQUIS R STICK/TAB CARE LET RGNT CENTERINC NON-AUTO W/O MICRSCP CUL 88697 CHRISTEN VELÁSQUEZ PRSMPTV 8 W W PTHGNC [facility] SCRN CENTER CENTER W/COLONY ESTIMJ BLOOD 43294 JAMES PEREYRA, COUNT 8 PRIMARY BRIDGETTE P HEMOGLOBI CARE N CENTERINC URNLS DIP 80665 JAMES PEREYRA, 8 PRIMARY BRIDGETTE P STICK/TAB CARE LET RGNT CENTERINC NON-AUTO W/O MICRSCP COLLECTIO 18044 JAMES PEREYRA, N VENOUS 8 PRIMARY BRIDGETTE P BLOOD CARE VENIPUNCT CENTERINC URE URNLS DIP 56723 JAMES CALHOUN, 8 PRIMARY MARQUIS R STICK/TAB CARE LET RGNT CENTERINC NON-AUTO W/O MICRSCP URNLS DIP 97334 JAMES BLUE, 8 PRIMARY DEANDRE W STICK/TAB CARE LET RGNT CENTERINC NON-AUTO W/O MICRSCP URNLS DIP 05643 JAMES HERRERA, 8 PRIMARY ANDRZEJ J STICK/TAB CARE LET RGNT CENTERINC NON-AUTO W/[place] [address] [facility] FREE 8 [facility] [place] [address] [facility] THYROID 8 [facility] INC STIMULATI NG HORMONE TSH COLLECTIO 81754 JAMES HERRERA, N VENOUS 8 PRIMARY ANDRZEJ J BLOOD CARE VENIPUNCT CENTERINC URE GLUCOSE 69795 [facility] POST 8 [facility] [place] INC GLUCOSE DOSE 89811 JAMES PEREYRA, NONSTRESS 8 PRIMARY BRIDGETTE P TEST CARE CENTERINC H[facility] G0378 CHRISTEN VELÁSQUEZ OBSERVATI 8 W W ON [facility] PER HOUR CENTER CENTER URNLS DIP 23877 JAMES MELCHOR, 8 PRIMARY YOGESH L STICK/TAB CARE LET RGNT CENTERINC NON-AUTO W/O MICRSCP URNLS DIP 76106 JAMES CALHOUN, Telma PRIMARY MARQUIS R STICK/TAB CARE LET RGNT CENTERINC NON-AUTO W/[place] [address] [facility] OF FREE 8 [facility] [place] [address] [facility] THYROID 8 [facility] STIMULATI [place] P[place] 67183 JAMES BLOOD LJ, UTERUS 8 PRIMARY MARQUIS R W/DETAIL CARE CENTERINC MITA 1ST [facility] 46098 DHS/CO GRAYSON NUTRITION 8 [facility] ASSMT&IVN BANK ACCT DEPARTMEN TJ INDIV T EACH 15 DC URNLS DIP 19588 JAMES BLOOD JESSIKA, 8 PRIMARY CLARITZA E STICK/TAB CARE LET RGNT CENTERINC NON-AUTO W/O MICRSCP URNLS DIP 95845 JAMES DIAMOND, 8 PRIMARY ALIN A STICK/TAB CARE LET RGNT CENTERINC NON-AUTO W/[place] [address] [facility] FREE 8 [facility] THYROXINE IADNA 00280 [facility] NEISSERIA 8 DIAGNOSTI DIAGNOSTI CS IN CS IN GONORRHOE AE AMPLIFIED PROBE TQ CYTP C/V 50150 [facility] AUTO THIN 8 DIAGNOSTI DIAGNOSTI LYR CS IN CS IN PREPJ SCR MNL RESCR PHYS IADNA 25157 [facility] CHLAMYDIA 8 DIAGNOSTI DIAGNOSTI CS IN CS IN TRACHOMAT IS AMPLIFIED PROBE TQ US PREG 29517 JAMES HERRERA, UTERUS 8 PRIMARY ANDRZEJ J REAL TIME CARE W/IMAGE CENTERINC DCMTN TRANSVAG URNLS DIP 07531 JAMES HERRERA, 8 PRIMARY ANDRZEJ J STICK/TAB CARE LET RGNT CENTERINC NON-AUTO W/O MICRSCP URNLS DIP 67746 JAMES PEREYRA, 8 PRIMARY BRIDGETTE P STICK/TAB CARE LET RGNT CENTERINC NON-AUTO W/O MICRSCP COLLECTIO 71172 JAMES PEREYRA, N VENOUS 8 PRIMARY BRIDGETTE P BLOOD CARE VENIPUNCT CENTERINC URE Encounters Encounter Start End Date Code Location Performer Type Date EMERGENCY 71402 [facility] 6 6 ROLO CHR DEPARTMEN EMERGENCY T VISIT PHYS HIGH/URGE NT [facility] - 5 5 [facility] OUT[facility]EN [facility] OFFICE 97244 JAMES BLOOD ALLY DEN OUTPATIEN 5 5 PRIMARY T VISIT CARE 15 CENTER MINUTES EMERGENCY 38446 GELY WOODRUFF DEPT 5 5 PHYSICIAN SIMI VISIT S, PLL HIGH SEVERITY& THREAT [facility] - 5 5 [facility] 16977 CLAIRE CLAIRE OUTPATIEN 5 5 N RAG N RAG T NEW 45 MINUTES EMERGENCY 27002 LETICIA CALHOUN DEPT 5 5 ROLO APPLE VISIT EMERGENCY HIGH PHYS SEVERITY& THREAT FUNJ EMERGENCY 10946 LETICIA CALHOUN 4 4 ROLO APPLE DEPARTMEN EMERGENCY T VISIT PHYS MODERATE SEVERITY [facility] - 4 4 [facility] 93364 JAMES FLOWERSY JASMIN OUTPATIEN 4 4 PRIMARY T VISIT CARE 15 CENTER MINUTES EMERGENCY 58552 [facility] 4 4 DEPARTMEN T VISIT HIGH/URGE NT SEVERITY [facility] 57407 JAMES FLOWERSY JASMIN OUTPATIEN 4 4 PRIMARY T VISIT CARE 40 CENTER MINUTES EMERGENCY 26808 FAUSTO LAMBERT DEPT 4 4 ORA ORA VISIT HIGH SEVERITY& THREAT [facility] OFFICE 38024 KENAN GRAYSON OUTPATIEN 4 4 CO CO T VISIT HEALTH HEALTH 10 DEPARTME DEPARTME MINUTES EMERGENCY 51368 FAUSTO LAMBERT 4 4 ORA ORA DEPARTMEN T VISIT MODERATE SEVERITY [facility] 4 4 [facility] 40101 CHRISTEN [place] OUTPATIEN 4 4 W GENERAL III PAO T VISIT SURGERY 15 MINUTES HOSPITAL CHRISTEN - 4 4 W OUTPATIEN REGIONAL T MEDICAL OFFICE 15217 GORGE [place] OUTPATIEN 4 4 III PAO III PAO T NEW 30 MINUTES OFFICE 76891 NANDINI NANDINI OUTPATIEN 4 4 AUD AUD T VISIT 15 MINUTES OFFICE 75660 NANDINI NANDINI OUTPATIEN 3 3 AUD AUD T VISIT 25 MINUTES EMERGENCY 64010 ECTOR CABRERA 3 3 EMERGENCY DEPARTMEN SERVICES T VISIT MODERATE SEVERITY OFFICE 64971 [place] DIEGO ANDREE OUTPATIEN 3 3 MEDICAL T NEW 60 SERV MINUTES [facility] - 3 3 Y [facility] OFF[facility] 76563 NANDINI NANDINI OUTPATIEN 3 3 AUD AUD T VISIT 10 MINUTES OFFICE 64245 AWOSIKA AWOSIKA OUTPATIEN 3 3 BRANDEN BRANDEN T NEW 30 MINUTES EMERGENCY 31492 ECTOR 2 2 EMERGENCY DEPARTMEN SERVICES T VISIT HIGH/URGE NT SEVERITY EMERGENCY 25442 POLLY 2 2 [facility] DEPARTMEN INC T VISIT MODERATE SEVERITY [facility]OSPITAL [facility] - 2 2 [facility] OUTPATIEN INC T OFFICE 16967 KENAN GRAYSON OUTPATIEN 2 2 CO CO T VISIT HEALTH HEALTH 10 DEPARTME DEPARTME MINUTES OFFICE 50727 NANDINI NANDINI OUTPATIEN 1 1 AUD AUD T VISIT 25 MINUTES EMERGENCY 81476 ECTOR ROPER 1 1 EMERGENCY CHR DEPARTMEN SERVICES T VISIT HIGH/URGE NT SEVERITY OFFICE 05229 NANDINI NANDINI OUTPATIEN 1 1 AUD AUD T VISIT 25 MINUTES OFFICE 01383 NANDINI NANDINI OUTPATIEN 1 1 AUD AUD T VISIT 25 MINUTES EMERGENCY 77656 ECTOR SCHMIDTRUFINO CABRERA 1 1 EMERGENCY DEPARTMEN SERVICES T VISIT HIGH/URGE NT SEVERITY EMERGENCY 39407 ECTOR DESAILIVAN 1 1 EMERGENCY CHR DEPARTMEN SERVICES T VISIT HIGH/URGE NT SEVERITY OFFICE 84945 NANDINI NANDINI OUTPATIEN 1 1 AUD AUD T VISIT 25 MINUTES HOSPITAL [facility] - 1 1 W [facility] HOSPITAL MEADOWVIE - 0 0 W [facility] MEDICAL OFFICE 49252 NANDINI NANDINI OUTPATIEN 0 0 AUD AUD T VISIT 25 MINUTES EMERGENCY 32633 ECTOR JONO CABRERA DEPT 0 0 EMERGENCY VISIT SERVICES HIGH SEVERITY& THREAT FUNCJ EMERGENCY 49748 MEADOWVIE 0 0 W [facility] REGIONAL T VISIT MEDICAL HIGH/URGE NT SEVERITY HOSPITAL MEADOWVIE - 0 0 W [facility] MEDICAL OFFICE 22288 NANDINI NANDINI OUTPATIEN 0 0 AUD AUD T VISIT 25 MINUTES OFFICE 67224 JAMES LATHAM OUTPATIEN 0 0 PRIMARY BERTA T VISIT CARE 25 CENTER MINUTES OFFICE 89799 JAMES CALHOUN, OUTPATIEN 0 0 PRIMARY MARQUIS R T VISIT CARE 25 CENTERINC MINUTES [facility] 20165 MERCEDEZ HEINI OUTPATIEN 0 0 , YAHIR SAMPSON T VISIT 15 MINUTES EMERGENCY 77612 ECTOR WOODRUFF, 0 0 EMERGENCY [facility] SERVICES T VISIT HIGH/URGE ASSOCIATE NT S SEVERITY [facility] POLLY - 0 0 [facility] OUTPATIEN INC T EMERGENCY 14248 POLLY 0 0 [facility] INC T VISIT LOW/MODER SEVERITY OFFICE 66589 RINALDINI RINALDINI OUTPATIEN 0 0 , CAMILLA , CAMILLA T VISIT 15 MINUTES OFFICE 22908 RINALDINI RINALDINI OUTPATIEN 0 0 , CAMILLA , CAMILLA T VISIT 15 MINUTES OFFICE 23459 RINALDINI RINALDINI OUTPATIEN 0 0 , CAMILLA , CAMILLA T NEW 30 MINUTES [facility] - [address] [facility] OFFICE 02281 PARMINDER DINERO 9 9 PRIMARY BRIAN T VISIT CARE 15 [facility]ENTER[facility] MINUTES OFFICE 42157 PARMINDER KARIMI 9 9 PRIMARY BRIDGETTE P T VISIT CARE 10 [facility]ENTER[facility] MINUTES OFFICE 57055 NANDINI DELATORRE OUTPATIEN 9 9 YOMI HAIRREY T VISIT 25 MINUTES EMERGENCY 62460 ECTOR SWANSON 9 9 EMERGENCY , [facility] A T VISIT HIGH/URGE ASSOCIATE NT S SEVERITY OFFICE 54927 PARMINDER DINERO 9 9 PRIMARY BRIAN T VISIT CARE 25 CENTERINC MINUTES [facility] - [address] [facility] OFFICE 31760 SHAY RAMOS 8 8 TRACE MARQUIS A ION GASTROENT NEW/ESTAB EROLOGY PATIENT 40 MIN [facility] - [address] [facility] - 8 8 W INPATIENT [facility] - [address] [facility] OFFICE 37237 PARMINDER KARIMI 8 8 PRIMARY BRIDGETTE P T VISIT CARE 15 CENTERINC MINUTES OFFICE 09877 JAMES [facility] RODDY, OUTPATIEN 8 8 PRIMARY BRIDGETTE P T VISIT CARE 15 [facility]ENTER[facility] MINUTES OFFICE 35809 J[facility] LJ OUTPATIEN 8 8 PRIMARY MARQUIS R T VISIT CARE 15 CENTERINC MINUTES OFFICE 30676 JAMES HERRERA OUTPATIEN 8 8 PRIMARY ANDRZEJ J T VISIT CARE 15 [facility]ENTER[facility] MINUTES OFFICE 27661 [facility] LJ OUTPATIEN 8 8 PRIMARY MARQUIS R T VISIT CARE 15 [facility]ENTERINC MINUTES [facility] - [address] [facility] OFFICE 08087 JAMES PEREYRA OUTPATIEN 8 8 PRIMARY BRIDGETTE P T VISIT CARE 15 [facility]ENTER[facility] MINUTES OFFICE 24688 JAMES CALHOUN OUTPATIEN 8 8 PRIMARY MARQUIS R T VISIT CARE 15 CENTER[facility] MINUTES OFFICE 01994 JAMES BLUE OUTPATIEN 8 8 PRIMARY DEANDRE W T VISIT CARE 15 [facility]ENTER[facility] MINUTES OFFICE 16970 JAMES HERRERA OUTPATIEN 8 8 PRIMARY ANDRZEJ J T VISIT CARE 15 [facility]ENTERINC MINUTES [facility] - [address] [facility] OFFICE 34985 JAMES MELCHOR OUTPATIEN 8 8 PRIMARY YOGESH L T VISIT CARE 15 CENTERINC MINUTES OFFICE 91369 JAMES CALHOUN OUTPATIEN 8 8 PRIMARY MARQUIS R T VISIT CARE 15 CENTER[facility] MINUTES OFFICE 21691 JAMES ROSEN OUTPATIDARIUS 8 8 PRIMARY CLARITZA E T VISIT CARE 15 [facility]ENTER[facility] MINUTES OFFICE 91851 PARMINDER LARSEN 8 8 PRIMARY ALIN A T VISIT CARE 15 CENTERINC MINUTES OFFICE 18647 JAMES HERRERA OUTPATIDARIUS 8 8 PRIMARY ANDRZEJ J T VISIT CARE 15 CENTERINC MINUTES OFFICE 38812 PARMINDER KARIMI 8 8 PRIMARY BRIDGETTE Aparicio T VISIT CARE 15 CENTERINC MINUTES
--- OUTSIDE RECORDS SUMMARY | 2016-08-30 23:07 | External Medical Summary Rpt ---
Author Author , Organization [employer] Address Unknown Phone Unavailable Care Team Providers Care Hyperbaric Nurse Name Role Phone [facility] [place] [facility], Unavailable [...] DEANDRE BLUE DOTY, Unavailable Unavailable DEANDRE Kauffman [facility], Unavailable Unavailable [facility] RANJAN SIMI, RANJAN Unavailable Unavailable SIMI FLETCHER WOODRUFF S, Unavailable Unavailable RANJAN, FLETCHER S KAMARA ANT, KAMARA Unavailable Unavailable ANT SHAYE DEN, GORE DEN Unavailable Unavailable CL[facility]IT[facility], Unavailable Unavailable [facility] Unavailable Unavailable INC, [facility] LAWTON KELIN, LAWTON Unavailable Unavailable KELIN LAWTON KELIN, LAWTON Unavailable Unavailable KELIN HILTON RAMIREZ, Unavailable Unavailable HILTON RAMIREZ [facility] Unavailable Unavailable IMAGING ASS, [facility] Unavailable Unavailable [facility] Unavailable Unavailable [facility] # Unavailable Unavailable [id number], [facility] # [id number] [facility], Unavailable Unavailable [facility] PA[facility], Unavailable Unavailable KUML[facility] III PA[facility] Unavailable Unavailable HOLDING, [facility] Unavailable Unavailable HOLDING, [facility], Unavailable Unavailable [facility] Unavailable Unavailable [facility]DRA [facility], [facility] Unavailable Unavailable SANDRA [facility], [facility] Unavailable Unavailable [facility]PORATION OF AM, [facility] Unavailable Unavailable MELVIN, [facility] Unavailable Unavailable SERVICES, [facility] Unavailable Unavailable ASSOCIAT, [facility] Unavailable Unavailable SURGERY, [facility] Unavailable Unavailable MEDICAL, [facility] Unavailable Unavailable MEDICAL CENTER, [facility] BRIDGETTE PEREYRA P, Unavailable Unavailable BRIDGETTE PEREYRA [...] Unavailable Unavailable [id number] Unavailable Unavailable [facility], [facility] Un[facility] Unavailable Unavailable DEPARTMENT, [facility] SADEK MOH, SADEK MOH Unavailable Unavailable [...] RAG NATALIIA RAG, Unavailable Unavailable NATALIIA WEINBERG [facility] Unavailable Unavailable PHYSICIANS MAY, [facility] Unavailable Unavailable PHYSICIANS MAY, [facility] PHYSICIANS MAY DE LA CRUZ KER, DE LA CRUZ KER Unavailable Unavailable [facility], Unavailable Unavailable [facility], Unavailable Unavailable [facility] Unavailable Unavailable LABORATORIES, [facility] MARQUIS DEVRIES, Unavailable Unavailable MARQUIS DEVRIES, LJ Unavailable Unavailable MARQUIS CARABALLO, Unavailable Unavailable MARQUIS CALHOUN KATHRYN, Unavailable Unavailable BRIAN POE Purpose Continuity of Care Document - 05-05-2007 through 2016 Problems Code Diagnosis DOS Provider Status J209 ACUTE 01-24-2016 [facility]Y UNSPECIFIED PHYS R05 COUGH 01-24-2016 [facility] Z720 TOBACCO USE 01-24-2016 [facility] I889 NONSPECIFIC 03-06-2015 [facility] LYMPHADEN[facility] INC IS UNSPECIFIED R7989 OTHER SPEC 03-06-2015 [facility] FINDINGS BLOOD CHEMISTRY 7245 UNSPECIFIED 01-30-[address] [facility] 00865 ABDOMINAL 01-14-2015 GELY PAIN OTHER PHYSICIANS, SPECIFIED [facility] SITE 77579 [facility] COMP 01-14-2015 [facility] DEVICE IMAGING ASS IMPLANT&GRA FT OTH 68387 ENDOCARDITI 05-25-2014 [facility] S VALVE REGIONAL UNSPECIFIED MEDICAL UNSPECIFIED CAUSE 93641 OTHER 05-25-2014 NATALIIA ENDOCARDITI RAG S VALVE UNSPECIFIED 6823 CELLULITIS 05-25-2014 [facility] AND ABSCESS REGIONAL OF UPPER MEDICAL ARM AND FOREARM 4519 PHLEBITIS&T 05-14-2014 NATALIIA HROMBOPHLEB RAG ITIS OF UNSPECIFIED SITE 22799 ACUTE 05-13-2014 [facility] VENOUS [facility] THROMB ASSOCIAT SUP VEINS UPPER EXT 97822 UNSPECIFIED 02-21-2014 [facility] DENTAL N EMERGENCY CARIES PHYS 5259 UNSPECIFIED 02-21-2014 [facility] DISORDER N EMERGENCY TEETH&SUPPO PHYS RTING STRUCTURES 17990 UNSPECIFIED 01-09-2014 [facility] VIRAL REGIONAL HEPATITIS C MEDICAL W/O HEPATIC COMA 77578 DYSPLASIA 01-09-2014 [facility] OF CERVIX H UNSPECIFIED ANESTHESIA PSC 10362 MODERATE 01-09-2014 [facility] DYSPLASIA REGIONAL OF CERVIX MEDICAL 7969 OTHER 01-09-2014 [facility] NONSPECIFIC REGIONAL ABNORMAL MEDICAL FINDING 77488 PAP SMER 01-05-2014 [facility] BLOOD CERV W/HI [facility] SQUAMOUS INTRAEPITH LES V7283 OTHER 01-05-2014 [facility]OD SPECIFIED PRIMARY PRE-OPERATI CARE CENTER VE EXAMINATION 92144 UNSPECIFIED 12-18-2013 [facility] INFECTION IN CCE & UNS SITE 6202 OTHER AND 12-13-2013 [facility] UNSPECIFIED REGIONAL OVARIAN MEDICAL CYST 7873 FLATULENCE 10-24-2013 [facility] ERUCTATION AND GAS PAIN 31956 ABDOMINAL 10-24-2013 POR[facility] ORA PAIN, PERIUMBILIC 7935 NONSPECIFIC 10-24-2013 [facility] ABN FINDING RAD & OTH EXAM ORGAN 36533 INCISIONAL 10-19-2013 SPADY KELIN HERNIA WITH OBSTRUCTION [...] 09-20-2013 [facility] WITHOUT MENTION OBSTRUCTION /GANGRENE 30866 UNSPEC 09-20-2013 [facility] JOHN KONG W/O PHYSICIANS MENTION MAY OBST/GANGRE N 5718 OTHER 09-20-2013 [facility] CHRONIC NONALCOHOLI C LIVER DISEASE 88622 OTHER 09-20-2013 [facility] SPECIFIED DISORDERS OF URETHRA V7241 09-14-2013 [facility] EXAM[facility] OR TEST DEPARTME NEGATIVE RESULT 06540 ABDOMINAL 09-13-2013 [facility] PAIN, UNSPECIFIED SITE 25032 ABDOMINAL 09-13-2013 PORNOY ORA PAIN, LEFT UPPER QUADRANT V4579 OTHER 09-13-2013 [facility] ACQUIRED ABSENCE OF ORGAN 03178 ACUT PEPTC 09-11-2013 [facility] ULCR UNS REGIONAL SITE MEDICAL W/HEMORR&PE RF W/O OBST 76999 UNSPECIFIED 09-11-2013 [facility] CONSTIPATIO MEDICAL N 00460 PAIN IN 08-28-2013 [facility] JOINT, GENERAL LOWER LEG SURGERY 8362 OTHER TEAR 08-28-2013 [facility] CARTILAGE GENERAL OR MENISCUS SURGERY KNEE CURRENT 9597 INJURY 08-28-2013 [facility] OTHER&UNSPE GENERAL CIFIED KNEE SURGERY LEG ANKLE&FOOT 67676 EFFUSION OF 08-24-2013 [facility] [place] LOWER LEG JOINT 2449 UNSPECIFIED 07-07-2013 NANDINI AUD HYPOTHYROID ISM 04034 UNSPECIFIED 07-07-2013 [facility] Y OF KNEE AUGUST 9598 INJURY 07-07-2013 [facility] OTHER AND UNSPECIFIED UNSPECIFIED SITE V7791 SCREENING 07-07-2013 N[facility]I AUD FOR LIPOID DISORDERS 6961 OTHER 03-22-2013 N[facility] AUD PSORIASIS AND SIMILAR DISORDERS V0481 NEED 03-22-2013 NANDINI AUD PROPHYLACTI C VACCINATION &INOCULATIO N FLU 8471 THORACIC 07-26-2012 I SPR[facility] THER[facility], STRAIN INC. 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 36732 CHRONIC 07-06-2012 [facility] WITHOUT MENTION HEPATIC COMA V700 ROUTINE 07-06-2012 [facility] MEDICAL EXAM@HEALTH CARE FACL 0701 VIRAL 05-10-2012 [facility] JOHN WITHOUT PHYSICIANS MENTION OF AUGUST HEPATIC COMA 93286 UNSPECIFIED 05-06-2012 AWOSIKA BRANDEN ASTIGMATISM 7840 HEADACHE 05-06-2012 AWOSIKA BRANDEN 5990 URINARY 11-28-2011 [facility] TRACT [facility]ERG[facility]Y INFECTION SERVICES SITE NOT SPECIFIED 29929 UNSPECIFIED 11-28-2011 [facility] RETENTION EMERGENCY OF URINE SERVICES 7099 UNSPECIFIED 11-13-2011 [facility] DISORDER AMERIC OF HOLDING SKIN&SUBCUT ANEOUS TISSUE 2662 OTHER 07-17-2011 KENA[facility] B-COMPLEX CO HEALTH DEFICIENCIE DEPARTME S 5959 UNSPECIFIED 02-07-2011 [facility] CYSTITIS EMERGENCY SERVICES 2384 NEOPLASM 12-19-2010 NANDINI AUD UNCERTAIN BEHAVIOR POLYCYTHEMI A VERA 2890 POLYCYTHEMI 12-19-2010 [facility] A, AMERIC SECONDARY HOLDING 8509 UNSPECIFIED 10-24-2010 NANDINI AUD CONCUSSION 40816 UNSPECIFIED 10-11-2010 [facility] ACUTE EMERGENCY CONJUNCTIVI SERVICES TIS 44591 OTHER 10-11-2010 [facility] DISEASES OF EMERGENCY NASAL SERVICES CAVITY AND SINUSES 9190 ABRASION/FR 10-11-2010 [facility] ICION BURN EMERGENCY OTH MX&UNS SERVICES SITE W/O INF 4660 ACUTE 08-06-2010 N[facility]INI AUD BRONCHITIS 6262 EXCESSIVE 06-06-2010 NANDINI AUD [place] FREQUENT MENSTRUATIO N 55520 CHOLECYSTIT 05-08-2010 [facility] IS, H UNSPECIFIED ANESTHESIA PSC 18337 CHRONIC 05-08-2010 [facility] CHOLECYSTIT REGIONAL IS MEDICAL 5758 OTHER 05-08-2010 [facility] SPECIFIED REGIONAL DISORDER OF MEDICAL GALLBLADDER 6146 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 [facility] PERITONEAL REGIONAL ADHESIONS, MEDICAL FEMALE 7856 ENLARGEMENT 05-08-2010 [facility] LYMPH [place] INC NODES 7862 COUGH 05-06-2010 [facility] 80843 ABDOMINAL 04-02-2010 [facility] PAIN RIGHT REGIONAL UPPER MEDICAL QUADRANT 30318 ACUTE 03-22-2010 [facility] GASTRITIS EMERGENCY WITHOUT SERVICES MENTION OF HEMORRHAGE 18747 UNS 03-22-2010 [facility] GASTRITIS&G REGIONAL ASTRODUODIT MEDICAL IS W/O MENTION HEMORR 06285 VOMITING 03-22-2010 [facility] ALONE [facility] MEDICAL 1105 DERMATOPHYT 12-24-2009 NANDINI AUD OSIS OF THE BODY 53394 OBESITY, 12-24-2009 NANDINI AUD UNSPECIFIED 53713 OTHER 12-24-2009 NANDINI AUD MALAISE AND FATIGUE [...] 11-25-2009 [facility] SOFT [place] TISSUES OF LIMB 34145 ABDOMINAL 11-25-2009 [facility] LOWER QUADRANT 04551 OTHER 11-25-2009 [facility] ASCITES RADIOLOGY ASSOCIAT 8419 SPRAIN&STRA 09-15-2009 [facility] IN EMERGENCY UNSPECIFIED SERVICES SITE ASSOCIATES ELBOW&[place] [address] CONTUSION 09-15-2009 [facility] OF [facility] SERVICES ASSOCIATES 9593 INJURY 09-15-2009 [facility] OTHER&UNSPE MEDICAL CIFIED IMAGING [facility] FOREARM&WRI ST E8809 ACCIDENTAL 09-15-2009 [facility] FALL ON OR EMERGENCY FROM OTHER SERVICES STAIRS OR ASSOCIATES STEPS 70607 THYROTOX 08-28-2009 [facility] W/O [place] INC GOITER/OTH CAUSE W/O CRISIS 1104 DERMATOPHYT 07-27-2009 MERC[facility], OSIS OF YAHIR Lopez FOOT 26688 MORBID 07-27-2009 [facility], OBESITY [place] 7831 ABNORMAL 07-24-2009 MERC[facility]Z, WEIGHT GAIN YAHIR Lopez 3804 IMPACTED 07-17-2009 [facility] CERUMEN [place] 6260 ABSENCE OF 03-21-2009 [facility] 04262 MILD 02-19-2009 [facility] DYSPLASIA [facility]IMARY [facility]ENTER[facility] 6253 DYSMENORRHE 02-19-2009 [facility]OD A [facility]IMARY [facility]ARE CENTERINC V2502 GENERAL 02-19-2009 [facility] B[facility]OD CNSL PRIMARY INITIATION CARE OTH CENTERINC CONTRACEPT MEASURES 7881 DYSURIA 02-05-2009 [facility] BLOOD [facility]ARE CENTERINC 01026 PAP SMER 12-25-2008 [facility] CERV [place] INC W/ATYPICAL SQUAMOUS CELLS UNDET 12176 ACUTE 11-05-2008 NANDINI, DYSTONIA YOMI DUE TO DRUGS 7231 CERVICALGIA 11-03-2008 [facility] AMB SERVICE 14110 INJURY OF 11-03-2008 [facility] FACE AND AMB SERVICE NECK OTHER AND UNSPECIFIED 6268 OTH D/O 09-25-2008 [facility] BLOOD MENSTRUATIO PRIMARY N&OTH ABN CARE BLEED FE CENTERINC GNT TRACT 2113 BENIGN 02-21-2008 [place] NEOPLASM OF TRACE COLON GASTROENTER OLOGY 5693 HEMORRHAGE 02-21-2008 [place] OF RECTUM TRACE AND ANUS GASTROENTER OLOGY 5699 UNSPECIFIED 02-21-2008 [facility] DISORDER [place] INC OF INTESTINE 5781 BLOOD IN 01-25-2008 [facility] BLOOD STOOL PRIMARY CARE CENTERINC 95651 C/S DELIV 01-25-2008 [facility] BLOOD W/O INDICAT PRIMARY DELIV W/WO CARE ANTPRTM CENTERINC COND V242 ROUTINE 01-25-2008 [facility] BLOOD PRIMARY FOLLOW-UP CARE CENTERINC V252 STERILIZATI 01-25-2008 [facility] BLOOD ON PRIMARY CARE CENTERINC 71257 BREECH 12-13-2007 [facility] BLOOD XTRAC W/O PRIMARY INDICAT CARE DELIV W/WO CENTERINC ANTPRTM COND V270 OUTCOME OF 12-13-2007 [facility] DELIVERY PRIMARY SINGLE CARE LIVEBORN CENTERINC 18740 BREECH 12-11-2007 [facility] PRESENTATIO H N W/O ANESTHESIA MENTION PSC VERSION DELIV 05946 OTH SPEC 12-11-2007 [facility] &PLACN REGIONAL TL PROBS MEDICAL MGMT [facility] CENTER DELIV 56907 PREVIOUS 12-07-2007 [facility] C-SECT REGIONAL DELIVERY MEDICAL ANTPRTM CENTER COND/COMP 7242 LUMBAGO 12-07-2007 [facility] CO PRIMARY CARE CENTERINC V221 SUPERVISION 12-07-2007 [facility] CO OF OTHER PRIMARY NORMAL CARE CENTERINC V2389 SUPERVISION 12-07-2007 [facility] CO OF OTHER PRIMARY HIGH-RISK CARE CENTERINC V7242 11-14-2007 [facility] EXAMINATION PRIMARY OR TEST CARE POSITIVE CENTERINC RESULT 63732 UNS 07-26-2007 [facility] ABNORM MGMT [facility] CENTER[facility] COND/COMP 89290 OTH CURRENT 07-11-2007 DHS/CO MATERNAL HEALTH CCE-COMPL [...] 02 03 3. 3 00 GE Ac MN 05 -1 -2 00 00 OR ti EN 40 7- 4- 0 04 GE ve OR 18 20 20 01 TO PH 91 17 17 67 WN IN 3 59 -N AP AL OT OX HE ON CA RY 8- 2 MG SL BU 00 02 03 4. 4 00 GE Ac MN 05 -1 -1 00 00 OR ti EN 40 3- 7- 0 04 GE ve OR 18 20 20 01 TO PH 91 17 17 66 WN IN 3 30 -N AP AL OT OX HE ON CA RY 8- 2 MG SL BU 00 02 03 5. 5 00 GE Ac MN 05 -0 -1 00 00 OR ti EN 40 3- 0- 0 04 GE ve OR 18 20 20 01 TO PH 91 17 17 63 WN IN 3 43 -N AP AL OT OX HE ON CA RY 8- 2 MG SL BU 00 01 03 4. 4 00 GE Ac MN 05 -3 -0 00 00 OR ti [...] 01 02 5. 5 00 GE Ac MN 05 -2 -2 00 00 OR ti [...] 2 30 15 KR 62 SP Ac MN 74 -1 -1 .0 OG 12 EN [...] 7- 7- [address] ve MN 28 20 20 6 AC AM 25 [...] 1- 1- 00 ER 71 CE ve MN 28 20 20 2 R AM 25 [...] 0- 0- 00 ER 40 CE ve MN 28 20 20 7 R AM 25 [...] R ZA 10 11 11 PH AU [place] [address] IN [place] EY E [...] 9- 9- 00 ER 67 CE ve MN 28 20 20 9 R AM 25 11 11 PH AU [address] HB MA EY R CY 40 # MG 14 42 TA 0 BL ET CI 55 02 02 0 10 5 KR 61 PO Ac MN 11 -2 -2 .0 OG 85 RN [...] K CY L # 14 42 0 MN 68 11 11 0 8. 2 KR [...] 08 09 11 28 28 KR 61 MN Ac RI 55 -1 -1 .0 OG 55 AD ti NT 59 7- 2- 00 ER 59 FUNEZ ve EC 01 20 20 7 N 65 10 10 PH SO 28 8 AR MA MA DA CY Y # TA BL 14 ET 42 0 SP 00 08 08 11 28 28 KR 61 MN Ac RI 55 -1 -1 .0 OG 55 AD ti NT 59 7- 7- 00 ER 59 FUNEZ ve EC 01 20 20 7 N 65 10 10 PH SO 28 8 AR MA MA DA CY Y # TA BL 14 ET 42 0 DO 53 08 08 0 14 7 KR 61 MN Ac XY 48 -1 -1 .0 OG [...] 0 20 10 KR 61 No Ac MN 09 -2 -2 .0 OG 52 t [...] -0 -2 .0 OG 49 t ti MN 90 8- 3- 00 ER 96 Av [...] 00 14 7 KR 60 No Ac MN 11 -2 -1 .0 OG 43 t [...] Procedure DOS Code Location Performer Comment RADIOLOGI 68550 [facility] C EXAM 6 HONG CHEST 2 RADIOLOGY VIEWS ASSOCIAT FRONTAL&L ATERAL COMPREHEN 30301 [facility] SIVE 5 [facility] [address] PO[facility] MATIAS THYROXINE 5 [facility] TOTAL INC INC BLOOD 59817 [facility], PICKLESIM SMEAR 5 LLC ER JR BIBIANA PERIPHERA L INTERP PHYS W/WRIT REPORT 25 57749 PO[facility] MATIAS HYDROXY 5 [facility] INCLUDES INC INC FRACTIONS IF PERFORMED BLOOD 32162 POLLY POLLY COUNT 5 [facility] COMPLETE INC INC AUTO&[place] [address] PO[facility] MAT[facility]AS THYROID 5 [facility] [place] [address] [facility] YOUNG ABDOMEN & 5 MEDICAL HENNA PELVIS IMAGING W/O ASS CONTRAST MATERIAL ANES 05374 [facility] GUERLINE NON-INVAS 5 LTH HONG BRUNILDA ANESTHESI IMAGING/R A PSC ADIATION THERAPY RINGERS J7120 [facility] LACTATE 5 W W INFUSION [facility] MEDICAL 1000 CC ECHO 98576 CLAIRE RANGEL TRANSESOP 5 N RAG N RAG HAG R-T 2D W/PRB IMG ACQUISJ I&R ECG 80013 CLAIRE ESTEVEZA ROUTINE 5 N RAG N RAG ECG W/LEAST 12 LDS W/I&R INITIAL 58980 [facility] 5 W GENERAL CARE/DAY SURGERY 30 MINUTES ECHO 27058 CLAIRE RANGEL TTHRC R-T 5 N RAG N RAG 2D W/WOM-MOD E COMPL SPEC&COLR D DUP-SCAN 16776 [facility] XTR VEINS 5 KELIN RADIOLOGY [place] ASSOCIAT L/[place] [address] [facility] SURG 4 W W PATHOLOGY [facility] GROSS&SIMI ROSCOPIC EXAM ANESTHESI 87842 [facility] TIAN FRANCO A VAGINAL 4 LTH ANESTHESI PROCEDURE A PSC W/BIOPSY NOS CONIZATIO 02388 [facility] N CERVIX 4 W W W/WO D&C [facility] ELTRD MEDICAL MEDICAL EXC CATHETER C1758 [facility] URETERAL 4 W W [facility] [place] [address] [facility] SURG 4 W W PATHOLOGY [facility] GROSS&SIMI ROSCOPIC EXAM GONADOTRO 96254 [facility] PIN 4 W W [facility] QUALITAT[facility] VE BLOOD 82078 [facility] COUNT 4 W W COMPLETE REGIONAL REGIONAL AUTO&AUTO MEDICAL MEDICAL DIFRNTL WBC URNLS DIP 46616 CHRISTEN VELÁSQUEZ 4 W W STICK/TAB REGIONAL REGIONAL LET MEDICAL MEDICAL REAGENT AUTO MICROSCOP Y COLLECTIO 64165 CHRISTEN VELÁSQUEZ N VENOUS 4 W W BLOOD [facility] VENIPUNCT MEDICAL MEDICAL URE POTASSIUM 73290 CHRISTEN VELÁSQUEZ SERUM 4 W W PLASMA/WH REGIONAL REGIONAL OLE BLOOD MEDICAL MEDICAL RADEX 98399 [facility] [place] ABDOMEN 4 HONG HONG COMPL W/DCBTS&/ ERC VIEWS REPAIR 59356 SPADY KELIN SPADY KELIN FIRST 4 ABDOMINAL WALL HERNIA IMPLANT 79757 SPADY KELIN SPADY KELIN MESH OPN 4 HERNIA RPR/[place] [address] LABORATOR LABORATOR SURG 4 Y Y PATHOLOGY CORPORATI CORPORATI ON OF AM ON OF AM GROSS&SIMI ROSCOPIC EXAM COLPOSCOP 60468 DARA DARA Y CERVIX 4 MARLEE MARLEE BX CERVIX & ENDOCRV CURRETAGE IADNA 93961 LABORATOR LABORATOR NEISSERIA 4 Y BILLY OF Y BILLY OF SANDRA SANDRA GONORRHOE H H AE AMPLIFIED PROBE TQ IADNA 77035 LABORATOR LABORATOR PAPILLOMA 4 Y BILLY OF Y BILLY OF VIRUS SANDRA SANDRA HUMAN H H AMPLIFIED PROBE TQ CYTP 08966 LABORATOR LABORATOR CERVICAL/ 4 Y BILLY OF Y BILLY OF VAGINAL SANDRA SANDRA REQ H H INTERP PHYSICIAN IADNA 36441 LABORATOR LABORATOR CHLAMYDIA 4 Y BILLY OF Y BILLY OF SANDRA SANDRA TRACHOMAT H H IS AMPLIFIED PROBE TQ CYTP C/V 92882 LABORATOR LABORATOR AUTO THIN 4 Y BILLY OF Y BILLY OF LYR SANDRA SANDRA PREPJ SCR H H MNL RESCR PHYS LOCM Q99[address] [facility] [address] [phone] 4 JOHN JOHN MG/ML IODINE PHYSICIAN PHYSICIAN [place] [address] ABDOMEN & 4 JOHN JOHN PELVIS W/CONTRAS PHYSICIAN PHYSICIAN T August MATERIAL URINE 33047 KENAN GRAYSON 4 CO CO TEST [employer] HEALTH VISUAL DEPARTME DEPARTME COLOR CMPRSN METHS RADEX ABD 11741 [place] COMPL 4 [facility] AQT ABD W/S/E/D VIE[place] [address] [place] [address] [place] ABDOMINAL 4 [facility] REAL TIME W/IMAGE LIMITED COMPREHEN 82224 [facility] SIVE 4 W W METABOLIC REGIONAL REGIONAL PANEL MEDICAL MEDICAL COLLECTIO 78616 [facility] N VENOUS 4 W W BLOOD REGIONAL REGIONAL VENIPUNCT MEDICAL MEDICAL URE URNLS DIP 36139 [facility] 4 W W STICK/TAB REGIONAL REGIONAL LET MEDICAL MEDICAL REAGENT AUTO MICROSCOP Y BLOOD 30145 [facility] COUNT 4 W W COMPLETE [facility] REGIONAL AUTO&AUTO MEDICAL MEDICAL DIFRNTL WBC CULTURE 40045 [facility] BACTERIAL 4 W W [facility] QUANTTATI MEDICAL MEDICAL VE COLONY COUNT URINE INJECTION J3301 MERLINENEEL [place] 4 W GENERAL III PAO TRIAMCINO SURGERY LONE ACETONIDE NOS 10 MG ARTHROCEN 25519 MERLINEDESTINEYTAVIA GORGE TESIS 4 W GENERAL III PAO ASPIR&/IN SURGERY J MAJOR JT/BURSA W/O US MRI ANY 49414 [facility] JT LOWER 4 W W EXTREM [facility] W/O MEDICAL MEDICAL CONTRAST MATRL RADIOLOGI 24408 [facility] EXAM 4 JOHNLEONCIO LOPEZ KNEE COMPLETE PHYSICIAN PHYSICIAN 4/MORE S AUGUST S AUGUST VIEWS COLLECTIO 31794 NANDINI NANDINI N VENOUS 4 AUD AUD BLOOD VENIPUNCT URE IM ADM 30788 NANDINI NANDINI PRQ ID 3 AUD AUD SUBQ/IM NJXS 1 [place] [address] [facility] THYROID 3 DIAGNOSTI DIAGNOSTI STIMULATI CS CS NG HORMONE TSH COMPREHEN 75433 [facility] SIVE 3 DIAGNOSTI DIAGNOSTI METABOLIC CS CS PANEL PHYSICAL 68864 KPI KPI THERAPY 3 THERAPY, THERAPY, EVALUATIO INC. INC. N RADEX 95651 [facility] SPINE 3 [facility] THORACIC RADIOLOGY 3 VIEWS ASSOCIAT COLLECTIO 25125 [facility] N VENOUS 3 Y Y BLOOD [facility] VENIPUNCT URE HEPATITIS 86927 [facility] A 3 Y Y [facility]ODY [facility] HAAB IADNA 16049 [facility] HEPATITIS 3 Y Y C [facility] TION HEPATITIS 15467 [facility] 3 Y Y ANTIBODY [facility] NFCT AGNT 16292 [facility] GENOTYP 3 Y Y NUCLEIC [facility] [place] [address] [facility] ABDOMINAL 3 JOHN LOPEZ REAL TIME PHYSICIAN PHYSICIAN W/IMAGE S August LIMITED VISUAL 61681 AWOSIKA AWOSIKA FIELD XM 3 BRANDEN BRANDEN UNI/BI W/INTERP INTERMED EXAM DETERMINA 61498 AWOSIKA AWOSIKA TION 3 BRANDEN BRANDEN REFRACTIV E STATE NFCT AGNT 25273 VIRO MED VIRO MED GENOTYP 3 LABORATOR LABORATOR NUCLEIC IES IES ACID HEPATITIS C VIRUS IADNA 88739 VIRO MED VIRO MED HEPATITIS 3 LABORATOR LABORATOR C IES IES AMPLIFIED PROBE&REV RSE TRANSCR CULTURE 11453 [facility] BACTERIAL 2 [facility] INC INC QUANTTATI VE COLONY COUNT URINE URNLS DIP 71799 PO[facility]IAS 2 [facility] STICK/TAB INC INC LET REAGENT AUTO MICROSCOP Y INSJ 73298 POLLY [facility] NON-NDWEL 2 [facility] LG INC INC BLADDER CATHETER SUSCEPTIB 92673 LAB B[facility] LAB BILLY LTY STDY 2 AMERIC AMERIC ANTIMICRB HOLDING HOLDING IAL MICRO/AGA R DILUTJ CULTURE 94377 LAB [facility] LAB BILLY BACTERIAL 2 AMERIC AMERIC HOLDING HOLDING QUANTTATI VE COLONY COUNT URINE CULTURE 69117 LAB [facility] LAB BILLY BCT 2 AMERIC AMERIC ISOL&PRSM HOLDING HOLDING [place] [address] [facility] LAB BILLY FREE 2 AMERIC [place]IC [place] [address] [facility] LAB BILLY THYROID 2 AMERIC AMERIC STIMULATI HOLDING HOLDING [place] HORMONE [place]SH URINE 57261 KENAN GRAYSON 2 [facility] TEST [facility] VISUAL DEPARTME DEPARTME COLOR CMPRSN METHS URINLS 91168 NANDINI NANDINI DIP 1 AUD AUD STICK/TAB LET REAGNT NON-AUTO MICRSCPY BLOOD 94080 LAB B[facility] LAB BILLY COUNT 1 AMERIC AMERIC COMPLETE HOLDING HOLDING AUTO&AUTO DIFRNTL WBC BLOOD 74603 LAB B[facility] LAB BILLY COUNT 1 AMERIC AMERIC COMPLETE HOLDING HOLDING AUTO&[place] [address] LAB [facility] LAB BILLY THYROID 1 AMERIC AMERIC STIMULATI HOLDING HOLDING NG HORMONE TSH LEVEL III 28169 MEADOWVIE MEADOWVIE SURG 1 W W PATHOLOGY REGIONAL REGIONAL MEDICAL MEDICAL GROSS&SIMI ROSCOPIC EXAM URINE 89840 MEADOWVIE MEADOWVIE 1 W W TEST REGIONAL REGIONAL VISUAL MEDICAL MEDICAL COLOR CMPRSN METHS LAPAROSCO 45382 MEADOWVIE MEADOWVIE PY SURG 1 W W CHOLECYST REGIONAL REGIONAL ECTOMY MEDICAL MEDICAL ANES 05180 [facility] INTRAPERI 1 LTH ANT TONEAL ANESTHESI UPPER A PSC ABDOMEN W/LAPS NOS UNLISTED 26509 MEADOWVIE MEADOWVIE PX FEMALE 1 W W GENITAL REGIONAL REGIONAL SYSTEM MEDICAL MEDICAL NONOBSTET RICAL RADIOLOGI 33201 [facility] EXAM 1 HONG CHEST 2 RADIOLOGY VIEWS ASSOCIAT FRONTAL&L ATERAL HEPATBL 66234 MEADOWVIE MEADOWVIE DUX SYS 0 W W IMG [place]ION[place] [address] [facility] ABDOMINAL 0 KELIN REAL RADIOLOGY TIME ASSOCIAT W/IMAGE LIMITED URINE 55883 MEADOWVIE MEADOWVIE 0 W W TEST REGIONAL REGIONAL VISUAL MEDICAL MEDICAL COLOR CMPRSN METHS URNLS DIP 80350 MEADOWVIE MEADOWVIE 0 W W STICK/TAB REGIONAL REGIONAL LET MEDICAL MEDICAL REAGENT AUTO MICROSCOP Y COLLECTIO 91076 MEADOWVIE MEADOWVIE N VENOUS 0 W W BLOOD REGIONAL REGIONAL VENIPUNCT MEDICAL MEDICAL URE COMPREHEN 23016 MEADOWTAVIA MEADOWVIE SIVE 0 W W METABOLIC REGIONAL [facility] PANEL MEDICAL MEDICAL BLOOD 23712 CHRISTEN MEADOWVIE COUNT 0 W W COMPLETE [facility] REGIONAL AUTO&AUTO [place] [address] [place] MEADOWVIE LIPASE 0 W W [facility] [place] [address] MEADOWVIE MEADOWVIE AMYLASE 0 W W [facility] [place] [address] LAB BILLY LAB BILLY FREE 0 AMERIC [employer] 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 62994 NANDINI NANDINI GLYCOSYLA 0 AUD AUD SCOT DEVICE CLEARED FDA HOME USE GENERAL 04012 LAB [facility] 0 [place] [address] [facility] TRANSVAGI [address] PELVIS [address] [facility] 0 KELIN W/[place] [address] [facility] TRANSVAGI [address] [place] [address] [facility] ABDOMEN 0 KELIN W/O & RADIOLOGY W/CONTRAS ASSOCIAT T MATERIAL BLOOD 81026 [facility] COUNT 0 CO [facility] AUTO&AUTO DIFRNTL WBC COMPREHEN 99903 [facility] SIVE 0 CO [facility] PANEL COLLECTIO 56280 S[facility]IV[facility] N VENOUS 0 CO [facility] VENIPUNCT URE GONADOTRO 91329 SIL[facility]IV[facility] PIN 0 CO [facility] QUALITATI VE RADEX 94270 [place] CLAUDY, ELBOW 0 MEDICAL SELWYN P COMPLETE IMAGING MINIMUM 3 [place] [address] [facility] THYROID 0 [facility] INC STIMULATI NG HORMONE TSH COLLECTIO 72246 MERCEDEZ NEWSOME N VENOUS 0 , CAMILLA , CAMILLA BLOOD VENIPUNCT URE GENERAL 08502 [facility] HEALTH 0 [facility] INC PANEL LIPID 52070 [facility] PANEL 0 [facility] REMOVAL 39002 RINALDINI RINALDINI IMPACTED 0 , CAMILLA , CAMILLA CERUMEN INSTRUMEN TATION UNILAT COLLECTIO 84980 MEADOWVIE MEADOWVIE N VENOUS 9 W W BLOOD [facility] VENIPUNCT [facility] MEDICAL URE CENTER CENTER GONADOTRO 67597 MEADOWVIE MEADOWVIE PIN 9 W W [facility]OR[facility]IC [facility] QUANTITAT CENTER CENTER BRUNILDA URNLS DIP 01807 JAMES BLOOD MEESE, 9 PRIMARY BRIDGETTE P STICK/TAB CARE LET CENTER[facility] REAGENT AUTO MICROSCOP Y URNLS DIP 51783 JAMES PEREYRA, 9 PRIMARY BRIDGETTE P STICK/TAB CARE LET RGNT CENTERINC AUTO W/O MICROSCOP Y IADNA 96113 [facility] NEISSERIA 9 [facility] GONORRHOE AE AMPLIFIED PROBE TQ IADNA 32741 [facility] PAPILLOMA 9 [facility] VIRUS HUMAN AMPLIFIED PROBE TQ IADNA 87628 [facility] CHLAMYDIA 9 [facility] TRACHOMAT IS AMPLIFIED PROBE TQ GROUND [id number] [facility] BRACKEN MILEAGE 9 CO AMB CO AMB PER SERVICE SERVICE STATUTE MILE AMBULANCE A0429 BRACKEN BRACKEN SERVICE 9 CO AMB CO AMB BLS SERVICE [place] [address] [facility] [place], SURG 8 [place] INC [place] D PATHOLOGY GROSS&SIMI ROSCOPIC EXAM COLSC FLX [address] [facility], W/RMVL 8 TRACE MARQUIS A OF TUMOR GASTROENT POLYP EROLOGY LESION SNARE TQ POSTPARTU 11094 John [facility] C[facility] 8 PRIMARY MARQUIS R ONLY CARE SEPARATE CENTERINC PROCEDURE URNLS DIP 44360 MEADOWVIE MEADOWVIE 8 W W STICK/TAB [facility] REAGENT CENTER CENTER AUTO MICROSCOP Y CULTURE 35404 MEAWTAVIA MEAWVIE BACTERIAL 8 W W [facility] QUANTTALOCATED WITHIN [facility] VE COLONY CENTER CENTER COUNT [facility] 33542 JAMES DIAMOND, CARLOS EDUARDO 8 PRIMARY ALIN A DAY CARE MANAGEMEN CENTERINC T 30 MIN/< SBSQ 36752 JAMES BLOOD [facility] 8 PRIMARY ALIN A CARE/DAY CARE 15 CENTERINC MINUTES ANES 40203 COMMONGABBYA JOSE, CESARN 8 LTH ASPEN N DLVR FLWG ANESTHESI A PSC NEURAXIAL LABOR ANALG/ANE S ANESTHESI 77481 COMMONWEA JOSE, A 8 LTH ASPEN N ANESTHESI DELIVERY A PSC ONLY 04998 JAMES BLOOD LJ, DELIVERY 8 PRIMARY MARQUIS R ONLY CARE CENTERINC LOW 741 MEADOWVIE MEADOWVIE CERVICAL 8 W W [facility] SECTION MEDICAL MEDICAL CENTER CENTER OTH 6639 MEADOWVIE MEADOWVIE BILATERAL 8 W W [facility] DESTRUC/O MEDICAL MEDICAL CCLUSION CENTER CENTER FALLOPIAN TUBES POTASSIUM 80267 MEADOWVIE MEADOWVIE SERUM 8 W W PLASMA/WH [facility] OLE BLOOD [facility] MEDICAL CENTER CENTER CULTURE 98315 MEADOWVIE MEADOWVIE BACTERIAL 8 W W [facility] QUANTTATI [facility] MEDICAL VE COLONY CENTER CENTER COUNT URINE URNLS DIP 66641 MEADOWVIE MEADOWVIE 8 W W STICK/TAB [facility] MEDICAL REAGENT CENTER CENTER AUTO MICROSCOP Y COLLECTIO 65021 MEADOWVIE MEADOWVIE N VENOUS 8 W W BLOOD [facility] VENIPUNCT [facility] MEDICAL URE CENTER CENTER URNLS DIP 04694 JAMES PEREYRA, 8 PRIMARY BRIDGETTE P STICK/TAB CARE LET RGNT CENTERINC NON-AUTO W/O MICRSCP BLOOD 57013 MEADOWVIE MEADOWVIE COUNT 8 W W COMPLETE [facility] AUTO&AUTO MEDICAL MEDICAL DIFRNTL CENTER CENTER WBC URNLS DIP 95097 JAMES PEREYRA, 8 PRIMARY BRIDGETTE P STICK/TAB CARE LET RGNT CENTERINC NON-AUTO W/O MICRSCP URNLS DIP 14841 JAMES HERRERA, 8 PRIMARY ANDRZEJ J STICK/TAB CARE LET RGNT CENTERINC NON-AUTO W/O MICRSCP URNLS DIP 73742 JAMES CALHOUN, 8 PRIMARY MARQUIS R STICK/TAB CARE LET RGNT CENTERINC NON-AUTO W/O MICRSCP CUL 73851 CHRISTEN VELÁSQUEZ PRSMPTV 8 W W [facility] S[facility] C[facility] CENTER W/COLONY ESTIMJ BLOOD 18984 JAMES PEREYRA, COUNT 8 PRIMARY BRIDGETTE P HEMOGLOBI CARE N CENTERINC URNLS DIP 10884 JAMES PEREYRA, 8 PRIMARY BRIDGETTE P STICK/TAB CARE LET RGNT CENTERINC NON-AUTO W/O MICRSCP COLLECTIO 60088 JAMES PEREYRA, N VENOUS 8 PRIMARY BRIDGETTE P BLOOD CARE VENIPUNCT CENTERINC URE URNLS DIP 15460 JAMES CALHOUN, 8 PRIMARY MARQUIS R STICK/TAB CARE LET RGNT CENTERINC NON-AUTO W/O MICRSCP URNLS DIP 45876 JAMES BLUE, 8 PRIMARY DEANDRE W STICK/TAB CARE LET RGNT CENTERINC NON-AUTO W/O MICRSCP URNLS DIP 91820 JAMES HERRERA, 8 PRIMARY ANDRZEJ J STICK/TAB CARE LET RGNT CENTERINC NON-AUTO W/[place] [address] [facility] FREE 8 [facility] [place] [address] [facility] THYROID 8 [facility] INC STIMULATI NG HORMONE TSH COLLECTIO 76793 JAMES HERRERA, N VENOUS 8 PRIMARY ANDRZEJ J BLOOD CARE VENIPUNCT CENTERINC URE GLUCOSE 53984 [facility] POST 8 [place] [facility] [place] INC GLUCOSE DOSE 72341 JAMES PEREYRA, NONSTRESS 8 PRIMARY BRIDGETTE P TEST CARE CENTER[facility] G0378 CHRISTEN VELÁSQUEZ OBSERVATI 8 W W ON [facility] PER HOUR CENTER CENTER URNLS DIP 40732 JAMES MELCHOR, 8 PRIMARY YOGESH L STICK/TAB CARE LET RGNT CENTERINC NON-AUTO W/O MICRSCP URNLS DIP 54884 JAMES CALHOUN, Telma PRIMARY MARQUIS R STICK/TAB CARE LET RGNT CENTERINC NON-AUTO W/[place] [address] [facility] FREE 8 [facility] [place] [address] [facility] THYROID 8 [facility] STIMULATI [place]ORMONE [place]SH [place] PREG 13568 JAMES BLOOD LJ, UTERUS 8 PRIMARY MARQUIS R W/DETAIL CARE CENTERINC [facility]ST [facility] 69281 DHS/CO [facility] NUTRITION 8 HEALTH CO [facility] ASSMT&IVN BANK ACCT DEPARTMEN TJ INDIV T EACH 15 DC URNLS DIP 26573 JAMES BLOOD JESSIKA, 8 PRIMARY CLARITZA E STICK/TAB CARE LET RGNT CENTERINC NON-AUTO W/O MICRSCP URNLS DIP 16696 JAMES DIAMOND, 8 PRIMARY ALIN A STICK/TAB CARE LET RGNT CENTERINC NON-AUTO W/[place] [address] [facility] FREE 8 [facility] THYROXINE IADNA 34027 [facility] NEISSERIA 8 DIAGNOSTI DIAGNOSTI CS IN CS IN GONORRHOE AE AMPLIFIED PROBE TQ CYTP C/V 54123 [facility] AUTO THIN 8 DIAGNOSTI DIAGNOSTI LYR CS IN CS IN PREPJ SCR MNL RESCR PHYS IADNA 92121 [facility] CHLAMYDIA 8 DIAGNOSTI DIAGNOSTI CS IN CS IN TRACHOMAT [place] P[place] 40938 JAMES HERRERA, UTERUS 8 PRIMARY ANDRZEJ J REAL TIME CARE W/IMAGE CENTERINC DCMTN TRANSVAG URNLS DIP 11051 JAMES HERRERA, 8 PRIMARY ANDRZEJ J STICK/TAB CARE LET RGNT CENTERINC NON-AUTO W/O MICRSCP URNLS DIP 32682 JAMES PEREYRA, 8 PRIMARY BRIDGETTE P STICK/TAB CARE LET RGNT CENTERINC NON-AUTO W/O MICRSCP COLLECTIO 30420 JAMES PEREYRA, N VENOUS 8 PRIMARY BRIDGETTE P BLOOD CARE VENIPUNCT CENTERINC URE Encounters Encounter Start End Date Code Location Performer Type Date EMERGENCY 57139 [facility] 6 6 ROLO CHR DEPARTMEN EMERGENCY T VISIT PHYS HIGH/URGE NT [facility] POLLY - 5 5 [facility] OUTPATIEN [facility] OFFICE 67897 JAMES BLOOD ALLY DEN OUTPATIEN 5 5 PRIMARY T VISIT CARE 15 CENTER MINUTES EMERGENCY 57881 GELY WOODRUFF DEPT 5 5 PHYSICIAN SIMI VISIT S, PLL HIGH SEVERITY& THREAT [facility] CHRISTEN - 5 5 W [facility] 17038 CLAIRE CLAIRE OUTPATIEN 5 5 N RAG N RAG T NEW 45 MINUTES EMERGENCY 68263 LETICIA CALHOUN DEPT 5 5 ROLO APPLE VISIT EMERGENCY HIGH PHYS SEVERITY& THREAT FUNJ EMERGENCY 91151 LETICIA CALHOUN 4 4 ROLO APPLE DEPARTMEN EMERGENCY T VISIT PHYS MODERATE SEVERITY [facility] - 4 4 [facility] OFF[facility] 19213 JAMES FLOWERSY JASMIN OUTPATIEN 4 4 PRIMARY T VISIT CARE 15 CENTER MINUTES EMERGENCY 11207 [facility] 4 4 DEPARTMEN T VISIT HIGH/URGE NT SEVERITY [facility] - 4 4 [facility] 60234 JAMES FLOWERSY JASMIN OUTPATIEN 4 4 PRIMARY T VISIT CARE 40 CENTER MINUTES EMERGENCY 83867 FAUSTO LAMBERT DEPT 4 4 ORA ORA VISIT HIGH SEVERITY& THREAT CRITICAL ACCESS HOSPITAL OFFICE 53828 KENAN GRAYSON OUTPATIEN 4 4 CO CO T VISIT HEALTH HEALTH 10 DEPARTME DEPARTME MINUTES EMERGENCY 81655 FAUSTO LAMBERT 4 4 ORA ORA DEPARTMEN T VISIT MODERATE SEVERITY [facility] - 4 4 W [facility] 65518 [facility] [place] OUTPATIEN 4 4 W GENERAL III PAO T VISIT SURGERY 15 MINUTES HOSPITAL CHRISTEN - 4 4 W OUTPATIEN REGIONAL T MEDICAL OFFICE 69912 GORGE [place] OUTPATIEN 4 4 III PAO III PAO T NEW 30 MINUTES OFFICE 95479 NANDINI NANDINI OUTPATIEN 4 4 AUD AUD T VISIT 15 MINUTES OFFICE 11298 NANDINI NANDINI OUTPATIEN 3 3 AUD AUD T VISIT 25 MINUTES EMERGENCY 02907 ECTOR CABRERA 3 3 EMERGENCY DEPARTMEN SERVICES T VISIT MODERATE SEVERITY OFFICE 26171 [place] DIEGO ANDREE OUTPATIEN 3 3 MEDICAL T NEW 60 SERV MINUTES [facility] UNIVERS[facility] - 3 3 Y [facility] T OFFICE 30416 NANDINI NANDINI OUTPATIEN 3 3 AUD AUD T VISIT 10 MINUTES OFFICE 04188 AWOSIKA AWOSIKA OUTPATIEN 3 3 BRANDEN BRANDEN T NEW 30 MINUTES EMERGENCY 68692 ECTOR 2 2 EMERGENCY DEPARTMEN SERVICES T VISIT HIGH/URGE NT SEVERITY EMERGENCY 52461 POLLY 2 2 [facility] DEPARTMEN INC T VISIT MODERATE SEVERITY [facility]OSPITAL PO[facility] - 2 2 [facility] OUTPATIEN INC T OFFICE 32089 KENAN GRAYSON OUTPATIEN 2 2 CO CO T VISIT HEALTH HEALTH 10 DEPARTME DEPARTME MINUTES OFFICE 38175 NANDINI NANDINI OUTPATIEN 1 1 AUD AUD T VISIT 25 MINUTES EMERGENCY 95633 ECTOR ROPER 1 1 EMERGENCY CHR DEPARTMEN SERVICES T VISIT HIGH/URGE NT SEVERITY OFFICE 04907 NANDINI NANDINI OUTPATIEN 1 1 AUD AUD T VISIT 25 MINUTES OFFICE 48009 NANDINI NANDINI OUTPATIEN 1 1 AUD AUD T VISIT 25 MINUTES EMERGENCY 41391 ECTOR SCHMIDTRUFINO CABRERA 1 1 EMERGENCY DEPARTMEN SERVICES T VISIT HIGH/URGE NT SEVERITY EMERGENCY 45279 ECTOR DESAILIVAN 1 1 EMERGENCY CHR DEPARTMEN SERVICES T VISIT HIGH/URGE NT SEVERITY OFFICE 17817 NANDINI NANDINI OUTPATIEN 1 1 AUD AUD T VISIT 25 MINUTES HOSPITAL [facility] - 1 1 W [facility] HOSPITAL MEADOWVIE - 0 0 W [facility] MEDICAL OFFICE 16458 NANDINI NANDINI OUTPATIEN 0 0 AUD AUD T VISIT 25 MINUTES EMERGENCY 95776 ECTOR JONO CABRERA DEPT 0 0 EMERGENCY VISIT SERVICES HIGH SEVERITY& THREAT FUNCJ EMERGENCY 63763 MEADOWVIE 0 0 W [facility] T VISIT MEDICAL HIGH/URGE NT SEVERITY HOSPITAL MEADOWVIE - 0 0 W [facility] MEDICAL OFFICE 55631 NANDINI NANDINI OUTPATIEN 0 0 AUD AUD T VISIT 25 MINUTES OFFICE 96045 JAMES LATHAM OUTPATIEN 0 0 PRIMARY BERTA T VISIT CARE 25 CENTER MINUTES OFFICE 12948 JAMES CALHOUN, OUTPATIEN 0 0 PRIMARY MARQUIS R T VISIT CARE 25 CENTERINC MINUTES HOSPITAL RIVERS - 0 0 CO [facility] T OFFICE 79324 MERCEDEZ HEINI OUTPATIEN 0 0 , YAHIR SAMPSON T VISIT 15 MINUTES EMERGENCY 71930 ECTOR WOODRUFF, 0 0 EMERGENCY [facility] T VISIT HIGH/URGE ASSOCIATE NT S SEVERITY [facility] POLLY - 0 0 MEM [facility] OUTPATIEN INC T EMERGENCY 11397 POLLY 0 0 MEM [facility] T VISIT LOW/MODER SEVERITY OFFICE 79703 RINALDINI RINALDINI OUTPATIEN 0 0 , CAMILLA , CAMILLA T VISIT 15 MINUTES OFFICE 40776 RINALDINI RINALDINI OUTPATIEN 0 0 , CAMILLA , CAMILLA T VISIT 15 MINUTES OFFICE 80854 RINALDINI RINALDINI OUTPATIEN 0 0 , CAMILLA , CAMILLA T NEW 30 MINUTES HOSPITAL MEANEEL - 9 9 W [facility] OFFICE 71919 PARMINDER DINERO 9 9 PRIMARY BRIAN T VISIT CARE 15 CENTERINC MINUTES OFFICE 25727 PARMINDER KARIMI 9 9 PRIMARY BRIDGETTE P T VISIT CARE 10 CENTERINC MINUTES OFFICE 06576 NANDINI DELATORRE OUTPATIEN 9 9 YOMI HAIRREY T VISIT 25 MINUTES EMERGENCY 24832 ECTOR SWANSON 9 9 EMERGENCY , [facility] A T VISIT HIGH/URGE ASSOCIATE NT S SEVERITY OFFICE 61694 PARMINDER DINERO 9 9 PRIMARY BRIAN T VISIT CARE 25 CENTERINC MINUTES [facility] CHRISTEN - 8 8 W [facility] OFFICE 78797 SHAY RAMOS 8 8 TRACE MARQUIS A ION GASTROENT NEW/ESTAB EROLOGY PATIENT 40 MIN HOSPITAL CHRISTEN - 8 8 W [facility] HOSPITAL CHRISTEN - 8 8 W INPATIENT [facility] CHRISTEN - 8 8 W [facility] OFFICE 72183 PARMINDER KARIMI 8 8 PRIMARY BRIDGETTE P T VISIT CARE 15 CENTERINC MINUTES OFFICE 02448 JAMES CO RODDY, OUTPATIEN 8 8 PRIMARY BRIDGETTE P T VISIT CARE 15 CENTERINC MINUTES OFFICE 67820 JAMES CO LJ OUTPATIEN 8 8 PRIMARY MARQUIS R T VISIT CARE 15 CENTERINC MINUTES OFFICE 23976 JAMES HERRERA OUTPATIEN 8 8 PRIMARY ANDRZEJ J T VISIT CARE 15 CENTERINC MINUTES OFFICE 45063 JAMES CO LJ OUTPATIEN 8 8 PRIMARY MARQUIS R T VISIT CARE 15 CENTERINC MINUTES HOSPITAL CHRISTEN - 8 8 W [facility] OFFICE 00907 JAMES PEREYRA OUTPATIEN 8 8 PRIMARY BRIDGETTE P T VISIT CARE 15 CENTERINC MINUTES OFFICE 40621 JAMES CALHOUN OUTPATIEN 8 8 PRIMARY MARQUIS R T VISIT CARE 15 CENTERINC MINUTES OFFICE 34153 JAMES BLUE OUTPATIEN 8 8 PRIMARY DEANDRE W T VISIT CARE 15 CENTERINC MINUTES OFFICE 87139 JAMES HERRERA OUTPATIEN 8 8 PRIMARY ANDRZEJ J T VISIT CARE 15 CENTERINC MINUTES HOSPITAL CHRISTEN - 8 8 W [facility] OFFICE 71475 JAMES MELCHOR OUTPATIEN 8 8 PRIMARY YOGESH L T VISIT CARE 15 CENTERINC MINUTES OFFICE 34629 JAMES CALHOUN OUTPATIEN 8 8 PRIMARY MARQUIS R T VISIT CARE 15 CENTERINC MINUTES OFFICE 58508 JAMES ROSEN OUTPATIDARIUS 8 8 PRIMARY CLARITZA E T VISIT CARE 15 CENTERINC MINUTES OFFICE 81434 PARMINDER LARSEN 8 8 PRIMARY ALIN A T VISIT CARE 15 CENTERINC MINUTES OFFICE 89512 JAMES HERRERA OUTPATIDARIUS 8 8 PRIMARY ANDRZEJ J T VISIT CARE 15 CENTERINC MINUTES OFFICE 81452 PARMINDER KARIMI 8 8 PRIMARY BRIDGETTE Aparicio T VISIT CARE 15 CENTERINC MINUTES
--- OUTSIDE RECORDS SUMMARY | 2016-08-30 23:08 | External Medical Summary Rpt ---
Author Author [employer], [employer] Organization [employer] Address Unknown Phone Unavailable Results CULTURE BETA STREP Gp A Observa Value Referen Units Interpr Notes Date tion ce etation Range _BETA No No No No Dec 20 STREP informa informa informa informa 2014 GP A tion in tion in tion in tion in 9:30 AM CULTURE source source source source _ data data data data STATUS PRELIMI No No No No Dec 20 NARY informa informa informa informa 2014 tion in tion in tion in tion in 9:30 AM source source source source data data data data RESULT: USUAL No No No No Dec 20 ORAL informa informa informa informa 2014 YOSI tion in tion in tion in tion in 9:30 AM source source source source data data data data STATUS FINAL No No No No Dec 20 informa informa informa informa 2014 tion in tion in tion in tion in 9:30 AM source source source source data data data data RESULT: NO BETA No No No No Dec 20 informa informa informa informa 2014 HEMOLYT tion in tion in tion in tion in 9:30 AM IC source source source source STREP data data data data RESULT: USUAL No No No No Dec 20 ORAL informa informa informa informa 2014 YOSI tion in tion in tion in tion in 9:30 AM source source source source data data data data SEND YES No No No No Dec 20 PHARM/I informa informa informa informa 2014 C tion in tion in tion in tion in 9:30 AM source source source source data data data data SEND TO YES No No No No Dec 20 ER informa informa informa informa 2014 tion in tion in tion in tion in 9:30 AM source source source source data data data data INFLUENZA TYPE A B RAPID Observa Value Referen Units Interpr Notes Date tion ce etation Range _INFLUE No No No No Aug 18 NZA informa informa informa informa 2014 ANTIGEN tion in tion in tion in tion in 5:44 AM A + B_ source source source source data data data data INFLUEN NEGATIV No [NL:_NE No No Dec 18 ZA A Ag E informa GAT informa informa 2014 tion in tion in tion in 5:44 AM source source source data data data INFLUEN NEGATIV No [NL:_NE No No Dec 18 ZA B Ag E informa GAT informa informa 2014 tion in tion in tion in 5:44 AM source source source data data data RAPID STREP SCREEN Observa Value Referen Units Interpr Notes Date tion ce etation Range RAPID NEGATIV NL: No No No Dec 18 STREP E NEGATIV informa informa informa 2014 E tion in tion in tion in 5:41 AM source source source data data data CULTURE YES No No No No Dec 18 informa informa informa informa 2014 ORDERED tion in tion in tion in tion in 5:41 AM source source source source data data data data
--- OUTSIDE RECORDS SUMMARY | 2016-08-30 23:08 | External Medical Summary Rpt ---
Demographics Preferred Language Lithuanian Marital Status Unknown Yazidi Affiliation Unknown Race Unknown Ethnic Group Unknown Author Author , Organization [employer] Address Unknown Phone Unavailable Purpose Continuity of Care Document - through 2016 Immunization No patient found.
--- OUTSIDE RECORDS SUMMARY | 2016-08-30 23:08 | External Medical Summary Rpt ---
Demographics Preferred Language Yoruba Marital Status Unknown Caodaism Affiliation Unknown Race Unknown Ethnic Group Unknown Author Author , Organization [employer] Address Unknown Phone Unavailable Purpose Continuity of Care Document - through 2016 Immunization No patient found.
== END 2016-08-29 16:59 | disposition home or self-care (01) ==
LOC: ER 15:01 → UTC 15:19 → ER 15:19 → UTC 16:59
PROVIDERS: Nurse Practitioner
DX: M62.838 Other muscle spasm (principal); R10.12 Left upper quadrant pain